=== PATIENT | male | born 1945 | race African-American/Black ===

== ENCOUNTER → 2017-09-17 | Outpatient (CLI) | payer MEDICARE, MEDICAID ==
[2016-07-23 16:42] VITALS: BMI 19.1
[~2017-09-17] MED LIST: ACET-1966 PO; ACET-2031 PO; AMIL5TAB12 PO; AML5 PO; AMLO-104 PO; ASP81 PO; ASPI81TA86 PO; AZI250 PO; BIFLEX PO; BISA10SU66 PR; CARB15DR72 OP; CLOB50FO2 TP; CLON1PAT23 TD; CLOP75TA43 PO; CYAN50002 PO; DIFL5DRO OP; DIFL5DRO3 OP; DOCU-202 PO; DONE10TA45 PO; DUT0.5 PO; FIO PO; FLUT16SP19 NS; FURO-45 PO; GLUC1TAB44 PO; HYD25 PO; HYDR-385 PO; HYDR-6045 RC; HYDR100T5 PO; HYDR25SU51 RC; HYDR50TA35 PO; IBU800 PO; IPRA4AER IH; KETO1DRO3 OP; KETO554C TP; LEVO5TAB28 PO; LIS10 PO; LIS5 PO; LISI-362 PO; LISI-374 PO; MEMA10TA19 PO; MET50 PO; METO-257 PO; METO100T20 PO; METO25TA23 PO; MIR15 PO; MIRT7.5T2 PO; MOD PO; MOM PO; MOXOD OD; NEPOD OP; NIF10 PO; NIFS30 PO; NIT4 SL; OMEG500C5 PO; OMEP-218 PO; POLY17PO21 PO; POLY1POW3 MC; POTA20TA10 PO; POTA20TA85 PO; PRIM50TA PO; PRIM50TA42 PO; PYRI100T57 PO; SENN1TAB13 PO; SIM40 PO; SIMV-44 PO; SODI325T7 PO; SODI650T7 PO; TOPI100C PO; TOPI25TA3 PO; TOPI50CA6 PO; TRA50 PO; TRAM-420 PO; TRAZ-156 PO; TRI05T TP; VALE445C4 PO; VITA-197 PO; VITA100T4 PO; WATER PILL; [UNRECOGNIZED DRUG - REMARK]; [UNRECOGNIZED DRUG - REMARK] PO
--- NOTE | 2017-09-19 19:59 | RT HOLTER TEST ---
FACILITY: [facility] PATIENT NAME: YARA MURPHY : [id number] MR: [id number] V: [id number] EXAM DATE: ORDERING PHYSICIAN: YOLANDA MCKEON TECHNOLOGIST: Isa-neville date: 2017-09-17 10:56:00 Duration: 47:59:00 Test Indications: Medications: [id number] QRS complexes 50 Ventricular ectopics which represent <1 % of total QRS comp. 326 Supraventricular ectopics which represent <1 % of total QRS comp. * Paced QRS complexes which represent % of total QRS comp. VENTRICULAR ECTOPY 48 Isolated 0 Bigeminal Cycles 1 Couplets 0 Runs 0 Beats in Runs * Beats LONGEST at * BPM at :: -- * Beats FASTEST at * BPM at :: -- SUPRAVENTRICULAR ECTOPY 322 Isolated 2 Couplets 0 Runs 0 Beats in Runs * Beats LONGEST at * BPM at :: -- * Beats FASTEST at * BPM at :: -- HEART RATES 39 MIN at 22:20:22 2017-09-18 55 AVG 97 MAX at 00:29:22 2017-09-18 LONGEST RR 1.752 secs at 03:24:02 2017-09-19 Channel 2 -12.800 mm MIN at 10:56:00 2017-09-17 -12.800 mm MAX at 10:56:00 2017-09-17 Channel 3 -12.800 mm MIN at 10:56:00 2017-09-17 -12.800 mm MAX at 10:56:00 2017-09-17 After the Lexiscan infusion, he did not have chest pain nor any ST changes. See the nuclear images for details. Confirmed by LEONEL ANGELES ([id number]) on 09/19/2017 7:57:50 PM Referred By: Overread By: LEONEL ANGELES
== END ==
LOC: RESP 10:33
PROVIDERS: ATTEND Family Medicine
DX: I35.9 Nonrheumatic aortic valve disorder, unspecified (principal)
CPT/HCPCS: 93225; 93226

== ENCOUNTER → 2017-10-23 | Outpatient (CLI) | payer MEDICARE, MEDICAID ==
[2016-07-23 16:42] VITALS: BMI 19.1
[2017-10-23 15:24] LABS: PLATELET COUNT, AUTOMATED 133 K/uL (150-450)
== END ==
LOC: LAB 14:24
PROVIDERS: ATTEND Internal Medicine Nephrology
DX: I12.9 Hypertensive chronic kidney disease with stage 1 through stage 4 chronic kidney disease, or unspecified chronic kidney disease (principal); N18.3 Chronic kidney disease, stage 3 (moderate); R80.9 Proteinuria, unspecified; I35.1 Nonrheumatic aortic (valve) insufficiency; F03.90 Unspecified dementia, unspecified severity, without behavioral disturbance, psychotic disturbance, mood disturbance, and anxiety; D72.810 Lymphocytopenia; R07.9 Chest pain, unspecified; G25.0 Essential tremor; R26.9 Unspecified abnormalities of gait and mobility; R53.83 Other fatigue
CPT/HCPCS: 36415; 82040; 82306; 82310; 82374; 82435; 82565; 82570; 82728; 82947; 83540; 83550; 83970; 84100; 84132; 84156; 84295; 84520; 85025

== ENCOUNTER 2017-11-05 07:38 | Emergency (ER) | payer MEDICARE, MEDICAID ==
[2016-07-23 16:42] VITALS: Ht 190.5 cm; Wt 70.3 kg
[~2017-11-05] VITALS: Ht 190.5 cm; Wt 70.3 kg
[~2017-11-05 07:38] MED LIST changes: +TOPI100C PO; -TOPI100C6 PO
--- NOTE | 2017-11-05 07:41 | ER Report ---
History and Physical Time Seen By MD: 07:39 HPI/ROS CHIEF COMPLAINT: tachycardia and chest pain HISTORY OF PRESENT ILLNESS: This is a 72 year old male. He has a history of SVT in the past with chest pain. Has similar symptoms this morning. Has felt this way since waking up. Heart racing and chest pain. Mild shortness of breath associated. Mild nausea as well. No fevers or chills. No cough. Allergies: Coded Allergies: atorvastatin calcium (Verified Allergy, Severe, HIVES, 11/05/17) Home Meds Active Scripts Tramadol Hcl (TRAMADOL HCL) 50 Mg Tablet, 1 TAB PO TID Y for PAIN, #15 MG TAKE ONE TO TWO TABLETS BY MOUTH EVERY FOUR TO SIX HOURS NEEDED Prov:LAZARO FIELD DO 07/13/17 Potassium Chloride (KLOR-CON M20) 20 Meq Tab.er.prt, 20 MEQ PO QDAY, #30 TAB 0 Refills Prov:ISRAEL SCHRADER MD 12/20/16 Polyethylene Glycol 3350 (POLYETHYLENE GLYCOL 3350) 17 Gm Powd.pack, 17 GM PO QDAY, #30 PACK 1 Refill Hold if diarrhea Prov:BALJIT DOWNING MD 07/26/16 Docusate Sodium (DOCUSATE SODIUM) 100 Mg Capsule, 100 MG PO BID, #60 CAPSULE 1 Refill Hold if diarrhea Prov:BALJIT DOWNING MD 07/26/16 Bisacodyl (BISAC-EVAC) 10 Mg Supp.rect, 10 MG SC QDAY Y for CONSTIPATION, #10 SUPP.RECT 1 Refill Prov:BALJIT DOWNING MD 07/26/16 Hydrocodone Bit/Acetaminophen (HYDROCODON-ACETAMINOPHEN 5-325) 1 Each Tablet, 1 EACH PO Q6H Y for PAIN, #30 TAB 0 Refills Prov:BALJIT DOWNING MD 07/26/16 Metoprolol Succinate (METOPROLOL SUCCINATE) 25 Mg Tab.er.24h, 1 TAB PO QDAY, # 30 TAB 1 Refill Prov:BALJIT DOWNING MD 07/26/16 Hydrocortisone (ANUSOL-HC) 30 Gm Cream..g., 2 GM RC TID for rectal pain, #60 2 Refills Prov:MAINE ARRIOLA DO 05/30/16 Hydrocortisone Acetate (ANUSOL-HC) 25 Mg Supp.rect, 25 MG RC BID for hemorriods , #15 SUPP.RECT Prov:MAINE ARRIOLA DO 05/09/16 Reported Medications Lisinopril (LISINOPRIL) 10 Mg Tablet, 10 MG PO QDAY, TAB 12/13/15 Acetaminophen (TYLENOL) 325 Mg Tablet, 650 MG PO Q6H Y for PAIN OR FEVER 100 OR GREATER, TAB 10/14/15 Vitamin E Mixed (VITAMIN E) 400 Unit Capsule, 400 UNIT PO QHS, CAPSULE 10/14/15 Sodium Bicarbonate (SODIUM BICARBONATE) 650 Mg Tablet, 650 MG PO DAILY 10/14/15 Pyridoxine Hcl (VITAMIN B-6) 100 Mg Tablet, 100 MG PO DAILY 10/14/15 Topiramate (TROKENDI XR) 50 Mg Cap.er.24h, 150 MG PO QHS 10/14/15 Hydralazine Hcl (HYDRALAZINE HCL) 100 Mg Tablet, 100 MG PO TID, TAB 10/14/15 Aspirin (ASPIRIN EC) 81 Mg Tablet.dr, 81 MG PO QHS, TAB 10/14/15 Gluc/Keith-Msm#1/C/Jose Ramon/Demetri/Bor (OSTEO BI-FLEX CAPLET) 1 Each Tablet, 2 EACH PO DAILY 02/15/15 Donepezil Hcl (DONEPEZIL HCL) 10 Mg Tab.rapdis, 10 MG PO HS, TAB TAKE 1 TABLET BY MOUTH AT BEDTIME 04/27/14 Fluticasone Prop 50 Mcg Ns (FLONASE 50 MCG NS) 16 Gm [place].susp, 1 SPRAY NS BID 04/27/14 Cyanocobalamin (Vitamin B-12) (VITAMIN B-12) 5,000 Mcg Tab.subl, 5000 MCG PO QHS 04/27/14 Memantine Hcl (Namenda) 10 Mg Tablet, 10 MG PO BID 12/08/12 Amlodipine Besylate (Norvasc) 10 Mg Tablet, 10 MG PO DAILY, 0 Refills 12/15/10 Dutasteride (Avodart) 0.5 Mg Cap, 0.5 MG PO BID, 0 Refills 12/15/10 Reviewed Nurses Notes: Yes Hx Smoking: No Smoking Status: Never Smoker Exposure to Second Hand Smoke?: No Hx Substance Use Disorder: No Hx Alcohol Use: No Constitutional Vital Sign - Last 24 Hours 11/05/17 11/05/17 11/05/17 11/05/17 07:40 07:43 07:45 07:48 Temp 97.9 Pulse 165 168 Resp 16 15 B/P (MAP) 84/65 73/63 (66) 84/65 (71) Pulse Ox 99 O2 Delivery Room Air 11/05/17 11/05/17 2/11/05/17 07:53 07:58 08:00 08:03 Pulse 165 81 72 Resp 30 34 B/P (MAP) 127/75 (92) 126/74 (91) Pulse Ox 97 95 18 218 2//18 11/05/17 08:08 08:13 08:15 08:18 Pulse 72 73 Resp 38 42 74 B/P (MAP) 117/65 (82) Pulse Ox 95 93 11/05/17 11/05/17 2//11/05/17 08:28 08:30 08:33 08:38 Pulse 71 72 69 Resp 78 30 23 B/P (MAP) 114/70 (85) Pulse Ox 93 96 99 11/05/17 11/05/17/11/05/17 08:43 08:45 08:48 08:53 Pulse 71 67 68 Resp 28 24 10 B/P (MAP) 109/78 (88) Pulse Ox 91 95 96 11/05/17 11/05/17 2//11/05/17 08:58 09:00 09:03 09:08 Pulse 67 76 75 Resp 31 45 22 B/P (MAP) 113/87 (96) Pulse Ox 96 11/05/17 11/05/1711/05/18 11/05/17 09:13 09:15 09:18 09:23 Pulse 75 70 74 Resp 26 36 37 B/P (MAP) 109/88 (95) Pulse Ox 98 Intake and Output 11/05/17 211/06/17 15:00 23:00 07:00 Intake Total 1000 ml Balance 1000 ml Physical Exam General Appearance: The patient is alert. No acute distress. Eyes: Pupils are equal, round. No pallor, injection or icterus. ENT: Mucous membranes are moist. Normal oral mucosa. Posterior oropharynx is normal. Neck: Supple and non tender. No lymphadenopathy. Respiratory: Lungs are clear to auscultation. Cardiovascular: Tachycardia of rate about 160s. Regular. No murmurs, gallops or rubs. Normal capillary refill. Gastrointestinal: Abdomen is soft and non tender. Nondistended. Normal active bowel sounds. Neurological: Alert and oriented x2, not to date/time. No focal neurologic deficits noted. Skin: Warm and dry. No rashes. DIFFERENTIAL DIAGNOSIS: After history and physical exam, differential diagnosis was considered for a patient with history of supraventricular tachycardia who is in SVT right now with some chest pain and shortness of breath. Medical Decision Making Data Points Result Diagram: 11/05/17 0748 11/05/17 0748 Laboratory Hematology Test 11/05/17 07:48 Red Blood Count 5.26 M/uL (4.00-5.60) Mean Corpuscular Volume 83.3 fL (80.0-96.0) Mean Corpuscular Hemoglobin 27.8 pg (26.0-33.0) Mean Corpuscular Hemoglobin Concent 33.4 g/dL (32.0-36.0) Red Cell Distribution Width 15.1 % (11.5-14.5) Mean Platelet Volume 8.6 fL (7.2-11.1) Neutrophils (%) (Auto) 61.7 % (39.4-72.5) Lymphocytes (%) (Auto) 26.7 % (17.6-49.6) Monocytes (%) (Auto) 7.2 % (4.1-12.4) Eosinophils (%) (Auto) 4.0 % (0.4-6.7) Basophils (%) (Auto) 0.4 % (0.3-1.4) Nucleated RBC Relative Count (auto) 0.1 /100WBC Neutrophils # (Auto) 2.7 K/uL (2.0-7.4) Lymphocytes # (Auto) 1.1 K/uL (1.3-3.6) Monocytes # (Auto) 0.3 K/uL (0.3-1.0) Eosinophils # (Auto) 0.2 K/uL (0.0-0.5) Basophils # (Auto) 0.0 K/uL (0.0-0.1) Nucleated RBC Absolute Count (auto) 0.00 K/uL Sodium Level 144 mmol/L (137-145) Potassium Level 3.1 mmol/L (3.5-5.0) Chloride Level 108 mmol/L (98-107) Carbon Dioxide Level 19 mmol/L (22-30) Blood Urea Nitrogen 33 mg/dl (9-21) Creatinine 2.00 mg/dl (0.66-1.25) Glomerular Filtration Rate Calc 32.8 Random Glucose 115 mg/dl (75-110) Calcium Level 10.1 mg/dl (8.4-10.2) Total Bilirubin 0.7 mg/dl (0.2-1.3) Aspartate Amino Transf (AST/SGOT) 70 U/L (0-35) Alanine Aminotransferase (ALT/SGPT) 103 U/L (0-56) Alkaline Phosphatase 94 U/L (0-126) Troponin I 0.059 ng/ml Total Protein 8.8 gm/dl (6.3-8.2) Albumin 4.3 g/dl (3.5-5.0) Chemistry Test 11/05/17 07:48 White Blood Count 4.3 k/uL (4.5-11.0) Red Blood Count 5.26 M/uL (4.00-5.60) Hemoglobin 14.6 g/dL (14.0-18.0) Hematocrit 43.8 % (42.0-52.0) Mean Corpuscular Volume 83.3 fL (80.0-96.0) Mean Corpuscular Hemoglobin 27.8 pg (26.0-33.0) Mean Corpuscular Hemoglobin Concent 33.4 g/dL (32.0-36.0) Red Cell Distribution Width 15.1 % (11.5-14.5) Platelet Count 168 K/uL (150-450) Mean Platelet Volume 8.6 fL (7.2-11.1) Neutrophils (%) (Auto) 61.7 % (39.4-72.5) Lymphocytes (%) (Auto) 26.7 % (17.6-49.6) Monocytes (%) (Auto) 7.2 % (4.1-12.4) Eosinophils (%) (Auto) 4.0 % (0.4-6.7) Basophils (%) (Auto) 0.4 % (0.3-1.4) Nucleated RBC Relative Count (auto) 0.1 /100WBC Neutrophils # (Auto) 2.7 K/uL (2.0-7.4) Lymphocytes # (Auto) 1.1 K/uL (1.3-3.6) Monocytes # (Auto) 0.3 K/uL (0.3-1.0) Eosinophils # (Auto) 0.2 K/uL (0.0-0.5) Basophils # (Auto) 0.0 K/uL (0.0-0.1) Nucleated RBC Absolute Count (auto) 0.00 K/uL Glomerular Filtration Rate Calc 32.8 Calcium Level 10.1 mg/dl (8.4-10.2) Total Bilirubin 0.7 mg/dl (0.2-1.3) Aspartate Amino Transf (AST/SGOT) 70 U/L (0-35) Alanine Aminotransferase (ALT/SGPT) 103 U/L (0-56) Alkaline Phosphatase 94 U/L (0-126) Troponin I 0.059 ng/ml Total Protein 8.8 gm/dl (6.3-8.2) Albumin 4.3 g/dl (3.5-5.0) EKG/Imaging EKG Interpretation 12 lead EKG: At 07:40 hours Rhythm: Supraventricular tachycardia, rate 166 Central: normal QRS: Left anterior fascicular block, left ventricular hypertrophy ST segments: T wave changes and ST changes in the lateral leads which is consistent with previous EKGs while he is in SVT. We'll reevaluate once converted. On comparison with prior SVT studies, no changes on his EKG 12 lead EKG: At 0800 hours Rhythm: Sinus rhythm with first-degree AV block and premature supraventricular complexes, rate 76 Central: normal QRS: Left ventricular hypertrophy ST segments: No ST elevation or depression noted. On comparison with prior studies after conversion from SVT, no major differences ED Course/Re-evaluation Clinical Indication for ER IV: Hydration, IV Access ED Course IV established, labs obtained. EKG as noted above. Adenosine 6mg IVP given, no conversion. Adenosine 12mg IVP given with conversion to sinus rhythm. Patient symptoms have subsided. The patient was monitored with heart monitor. He stayed in a sinus rhythm and has no further symptoms. Decision to Disposition Date: Nov 05, 2017 Decision to Disposition Time: 09:22 Depart Departure Latest Vital Signs Vital Signs Date Time Temp Pulse Resp B/P (MAP) Pulse Ox O2 Delivery O2 Flow Rate FiO2 11/05/17 09:23 74 37 98 11/05/17 09:15 109/88 (95) 11/05/17 07:40 97.9 Room Air Impression: Primary Impression: PSVT (paroxysmal supraventricular tachycardia) Condition: Improved Disposition: HOME OR SELF-CARE Referrals: YOLANDA MCKEON MD (PCP) Patient Instructions: Supraventricular Tachycardia (ED) Additional Instructions: No changes to medications at this time. Please make a follow-up appointment with your primary care provider. ISRAEL SCHRADER MD Nov 05, 2017 07:41
[2017-11-05] MEDS ORDERED: ADENOSINE IV SOLN 3 MG/ML SYR ONE (07:45)
[2017-11-05] MEDS ORDERED: ADENOSINE IV SOLN 3 MG/ML SYR IVP ONE ×2 (07:50)
[2017-11-05] MEDS ORDERED: NS(*) 0.9% 1000 ML BAG 1,000 ML IV ONE (07:50)
[2017-11-05 07:59] LABS: PLATELET COUNT, AUTOMATED 168 K/uL (150-450)
--- NOTE | 2017-11-05 07:59 | EKG ---
FACILITY: [facility] PATIENT NAME: YARA MURPHY : [id number] MR: [id number] V: [id number] EXAM DATE: ORDERING PHYSICIAN: ISRAEL SCHRADER TECHNOLOGIST: ORALIA Test Reason : SVT Blood Pressure : / mmHG Vent. Rate : 166 BPM Atrial Rate : 078 BPM P-R Int : 000 ms QRS Dur : 110 ms QT Int : 314 ms P-R-T Axes : 000 -56 122 degrees QTc Int : 521 ms Supraventricular tachycardia Left anterior fascicular block ST depression consistent with lateral ischemia When compared with ECG of 26-AUG-2017 08:44, ME interval has decreased Vent. rate has increased BY [address] now depressed in Anterolateral leads Nonspecific T wave abnormality no longer evident in Inferior leads Confirmed by LEONEL ANGELES ([id number]) on 11/05/2017 10:15:43 PM Referred By: MACRINA Confirmed By:LEONEL ANGELES
[2017-11-05] MEDS ORDERED: EMS NS 0.9%(*) 1000 ML BAG 1,000 ML IV ONE (08:05)
--- NOTE | 2017-11-05 08:11 | EKG ---
FACILITY: [facility] [place] PATIENT NAME: YARA MURPHY : [id number] MR: [id number] V: [id number] EXAM DATE: ORDERING PHYSICIAN: ISRAEL SCHRADER TECHNOLOGIST: ORALIA Test Reason : REPEAT EKG Blood Pressure : / mmHG Vent. Rate : 076 BPM Atrial Rate : 076 BPM P-R Int : 250 ms QRS Dur : 140 ms QT Int : 442 ms P-R-T Axes : 017 -57 101 degrees QTc Int : 497 ms Sinus rhythm with 1st degree AV block with premature supraventricular complexes and fusion complexes Left bundle branch block Abnormal ECG When compared with ECG of 05-NOV-2017 07:40, Vent. rate has decreased BY 90 BPM QRS duration has increased ST no longer depressed in Lateral leads Confirmed by LEONEL ANGELES ([id number]) on 11/05/2017 10:17:30 PM Referred By: MACRINA Confirmed By:LEONEL ANGELES
--- NOTE | 2017-11-05 08:53 | RADIOLOGY IMAGING REPORT ---
FACILITY: [facility] PATIENT NAME: Randy Gayle : 1945 MR: [id number] V: [id number] EXAM DATE: ORDERING PHYSICIAN: ISRAEL SCHRADER TECHNOLOGIST: Location: [facility] Patient: Randy Gayle : 1945 Visit/Account:[id number] Date of Sevice: 11/05/2017 Technique: CHEST SINGLE AP HISTORY: tachycardia, chest pain Comparison studies: Test radiograph August 26, 2017 FINDINGS: No lobar airspace consolidation. No pleural effusion. The cardiomediastinal silhouette is unchanged. IMPRESSION: 1. No acute cardiopulmonary process. Report Dictated By: Tacos Lewis DO at 11/05/2017 8:48 AM Report E-Signed By: Tacos Lewis DO at 11/05/2017 8:49 AM WSN:[id number]
[2017-11-05 09:15] VITALS: BP 109/88
== END 2017-11-05 09:30 | disposition home or self-care (01) ==
LOC: ER 07:42
DX: I47.1 Supraventricular tachycardia (principal); I44.7 Left bundle-branch block, unspecified; R94.31 Abnormal electrocardiogram [ECG] [EKG]
CPT/HCPCS: 71045; 84484; 85025; 93005; 96361; 96374; 99284; J0153; 82040; 82247; 82310; 82374; 82435; 82565; 82947; 84075; 84132; 84155; 84295; 84450; 84460; 84520

== ENCOUNTER → 2017-11-05 | Outpatient (CLI) | payer MEDICARE, MEDICAID ==
[2016-07-23 16:42] VITALS: BMI 19.1
[~2017-11-05] MED LIST changes: -TOPI100C PO; +TOPI100C6 PO
== END ==
LOC: AMB 07:18
PROVIDERS: ATTEND Nurse Practitioner
DX: R07.9 Chest pain, unspecified (principal); R41.0 Disorientation, unspecified; I47.1 Supraventricular tachycardia; I95.9 Hypotension, unspecified
CPT/HCPCS: A0425; A0427

== ENCOUNTER → 2017-11-05 | Outpatient (CLI) | payer MEDICARE, MEDICAID ==
[2016-07-23 16:42] VITALS: BMI 19.1
== END ==
LOC: AMB 09:33
PROVIDERS: ATTEND Nurse Practitioner
DX: Z76.89 Persons encountering health services in other specified circumstances (principal)
CPT/HCPCS: A0425; A0428

== ENCOUNTER → 2018-01-28 | Outpatient (REF) | payer MEDICARE, MEDICAID ==
[2016-07-23 16:42] VITALS: BMI 19.1
[~2018-01-28] MED LIST changes: -TOPI100C PO; +TOPI100C6 PO
== END ==
LOC: ZZSENDIN 14:23
PROVIDERS: ATTEND Family Medicine
DX: R30.0 Dysuria (principal)
CPT/HCPCS: 81001

== ENCOUNTER 2018-02-21 19:30 | Emergency (ER) | payer MEDICARE, MEDICAID ==
[2016-07-23 16:42] VITALS: Wt 66.7 kg
[2018-02-21] MEDS ORDERED: ADENOSINE(*)IV SOLN 3MG/ML ONE ×2 (19:45→19:47)
--- NOTE | 2018-02-21 19:59 | ER Report ---
History and Physical Time Seen By MD: 19:34 Hx. of Stated Complaint: PATIENT GOT OUT OF SHOWER WASN'T ACTING RIGHT ACCORDING TO HIS HOME HEALTH CARE NURSE CALLED AMBULANCE, EMS STATES HIS HEART RATE WAS 171, PATIENT HAS HX OF SVT. HPI/ROS CHIEF COMPLAINT: SVT HISTORY OF PRESENT ILLNESS: 72-year-old male patient presents to emergency room with complaint of supraventricular tachycardia. Patient states that he had gotten out of the shower and then started to feel funny. He had a home health nurse that was there with him. She did have him sit on the couch and called EMS. Patient did not have any loss consciousness, however he did was having some chest pain and dizziness. Patient did not have any nausea or vomiting. Patient does have a history of SVT and has been treated numerous times in the past. REVIEW OF SYSTEMS: Respiratory: No cough, no dyspnea. Cardiovascular: As noted above Gastrointestinal: No vomiting, no abdominal pain. Musculoskeletal: No back pain. Allergies: Coded Allergies: atorvastatin calcium (Verified Allergy, Severe, HIVES, 02/21/18) Home Meds Active Scripts Tramadol Hcl (TRAMADOL HCL) 50 Mg Tablet, 1 TAB PO TID Y for PAIN, #15 MG TAKE ONE TO TWO TABLETS BY MOUTH EVERY FOUR TO SIX HOURS NEEDED Prov:LAZARO FIELD DO 07/13/17 Potassium Chloride (KLOR-CON M20) 20 Meq Tab.er.prt, 20 MEQ PO QDAY, #30 TAB 0 Refills Prov:ISRAEL SCHRADER MD 12/20/16 Polyethylene Glycol 3350 (POLYETHYLENE GLYCOL 3350) 17 Gm Powd.pack, 17 GM PO QDAY, #30 PACK 1 Refill Hold if diarrhea Prov:BALJIT DOWNING MD 07/26/16 Docusate Sodium (DOCUSATE SODIUM) 100 Mg Capsule, 100 MG PO BID, #60 CAPSULE 1 Refill Hold if diarrhea Prov:BALJIT DOWNING MD 07/26/16 Hydrocodone Bit/Acetaminophen (HYDROCODON-ACETAMINOPHEN 5-325) 1 Each Tablet, 1 EACH PO Q6H Y for PAIN, #30 TAB 0 Refills Prov:BALJIT DOWNING MD 07/26/16 Metoprolol Succinate (METOPROLOL SUCCINATE) 25 Mg Tab.er.24h, 1 TAB PO QDAY, # 30 TAB 1 Refill Prov:BALJIT DOWNING MD 07/26/16 Hydrocortisone (ANUSOL-HC) 30 Gm Cream..g., 2 GM RC TID for rectal pain, #60 2 Refills Prov:MAINE ARRIOLA DO 05/30/16 Hydrocortisone Acetate (ANUSOL-HC) 25 Mg Supp.rect, 25 MG RC BID for hemorriods , #15 SUPP.RECT Prov:MAINE ARRIOLA DO 05/09/16 Reported Medications Lisinopril (LISINOPRIL) 10 Mg Tablet, 10 MG PO QDAY, TAB 12/13/15 Acetaminophen (TYLENOL) 325 Mg Tablet, 650 MG PO Q6H Y for PAIN OR FEVER 100 OR GREATER, TAB 10/14/15 Vitamin E Mixed (VITAMIN E) 400 Unit Capsule, 400 UNIT PO QHS, CAPSULE 10/14/15 Sodium Bicarbonate (SODIUM BICARBONATE) 650 Mg Tablet, 650 MG PO DAILY 10/14/15 Pyridoxine Hcl (VITAMIN B-6) 100 Mg Tablet, 100 MG PO DAILY 10/14/15 Topiramate (TROKENDI XR) 50 Mg Cap.er.24h, 150 MG PO QHS 10/14/15 Hydralazine Hcl (HYDRALAZINE HCL) 100 Mg Tablet, 100 MG PO TID, TAB 10/14/15 Aspirin (ASPIRIN EC) 81 Mg Tablet.dr, 81 MG PO QHS, TAB 10/14/15 Gluc/Keith-Msm#1/C/Jose Ramon/Demetri/Bor (OSTEO BI-FLEX CAPLET) 1 Each Tablet, 2 EACH PO DAILY 02/15/15 Donepezil Hcl (DONEPEZIL HCL) 10 Mg Tab.rapdis, 10 MG PO HS, TAB TAKE 1 TABLET BY MOUTH AT BEDTIME 04/27/14 Fluticasone Prop 50 Mcg Ns (FLONASE 50 MCG NS) 16 Gm [place].susp, 1 SPRAY NS BID 04/27/14 Cyanocobalamin (Vitamin B-12) (VITAMIN B-12) 5,000 Mcg Tab.subl, 5000 MCG PO QHS 04/27/14 Memantine Hcl (Namenda) 10 Mg Tablet, 10 MG PO BID 12/08/12 Amlodipine Besylate (Norvasc) 10 Mg Tablet, 10 MG PO DAILY, 0 Refills 12/15/10 Dutasteride (Avodart) 0.5 Mg Cap, 0.5 MG PO BID, 0 Refills 12/15/10 Discontinued Scripts Bisacodyl (BISAC-EVAC) 10 Mg Supp.rect, 10 MG [place] QDAY Y for CONSTIPATION, #10 SUPP.RECT 1 Refill Prov:BALJIT DOWNING MD 07/26/16 Past Medical/Surgical History Patient has a past medical history of dementia, TIA, elevated cholesterol, angina, SVT, hypertension, asthma, pneumonia, reflux, BPH, arthritis, back pain , cataract surgery. Patient has a surgical history of cataract surgery, shoulder surgery. Patient has a family medical history of cancer, CAD. Reviewed Nurses Notes: Yes Hx Smoking: No Smoking Status: Never Smoker Exposure to Second Hand Smoke?: No Hx Substance Use Disorder: No Hx Alcohol Use: No Constitutional Vital Sign - Last 24 Hours 02/21/18 02/21/18 19:33 19:33 Temp 97.6 Pulse 168 Resp 37 B/P (MAP) 99/87 Pulse Ox 99 O2 Flow Rate 3.0 Physical Exam General Appearance: The patient is alert, has no immediate need for airway protection and no current signs of toxicity. Respiratory: Chest is non tender, lungs are diminished to auscultation. Cardiac: Rapid rate. Gastrointestinal: Abdomen is soft and non tender, no masses, bowel sounds normal. Musculoskeletal: Neck: Neck is supple and non tender. Extremities have full range of motion and are non tender. Skin: No rashes or lesions. DIFFERENTIAL DIAGNOSIS: After history and physical exam differential diagnosis was considered for supraventricular tachycardia, atrial fibrillation with rapid ventricular response, [place]. Medical Decision Making Data Points Result Diagram: 02/21/18193302/21/181933 Laboratory Hematology Test 02/21/18 19:34 Red Blood Count 4.82 M/uL (4.00-5.60) Mean Corpuscular Volume 83.6 fL (80.0-96.0) Mean Corpuscular Hemoglobin 28.6 pg (26.0-33.0) Mean Corpuscular Hemoglobin Concent 34.3 g/dL (32.0-36.0) Red Cell Distribution Width 14.3 % (11.5-14.5) Mean Platelet Volume 8.6 fL (7.2-11.1) Neutrophils (%) (Auto) 61.7 % (39.4-72.5) Lymphocytes (%) (Auto) 24.3 % (17.6-49.6) Monocytes (%) (Auto) 8.2 % (4.1-12.4) Eosinophils (%) (Auto) 4.0 % (0.4-6.7) Basophils (%) (Auto) 1.8 % (0.3-1.4) Nucleated RBC Relative Count (auto) 0.1 /100WBC Neutrophils # (Auto) 2.9 K/uL (2.0-7.4) Lymphocytes # (Auto) 1.1 K/uL (1.3-3.6) Monocytes # (Auto) 0.4 K/uL (0.3-1.0) Eosinophils # (Auto) 0.2 K/uL (0.0-0.5) Basophils # (Auto) 0.1 K/uL (0.0-0.1) Nucleated RBC Absolute Count (auto) 0.00 K/uL Sodium Level 144 mmol/L (137-145) Potassium Level 3.2 mmol/L (3.5-5.0) Chloride Level 110 mmol/L (98-107) Carbon Dioxide Level 19 mmol/L (22-30) Blood Urea Nitrogen 35 mg/dl (9-21) Creatinine 2.20 mg/dl (0.66-1.25) Glomerular Filtration Rate Calc 29.4 Random Glucose 119 mg/dl (75-110) Calcium Level 9.9 mg/dl (8.4-10.2) Total Bilirubin 0.7 mg/dl (0.2-1.3) Aspartate Amino Transf (AST/SGOT) 50 U/L (0-35) Alanine Aminotransferase (ALT/SGPT) 61 U/L (0-56) Alkaline Phosphatase 98 U/L (0-126) Troponin I 0.033 ng/ml Total Protein 8.4 gm/dl (6.3-8.2) Albumin 4.2 g/dl (3.5-5.0) Chemistry Test 02/21/18 19:34 White Blood Count 4.6 k/uL (4.5-11.0) Red Blood Count 4.82 M/uL (4.00-5.60) Hemoglobin 13.8 g/dL (14.0-18.0) Hematocrit 40.3 % (42.0-52.0) Mean Corpuscular Volume 83.6 fL (80.0-96.0) Mean Corpuscular Hemoglobin 28.6 pg (26.0-33.0) Mean Corpuscular Hemoglobin Concent 34.3 g/dL (32.0-36.0) Red Cell Distribution Width 14.3 % (11.5-14.5) Platelet Count 158 K/uL (150-450) Mean Platelet Volume 8.6 fL (7.2-11.1) Neutrophils (%) (Auto) 61.7 % (39.4-72.5) Lymphocytes (%) (Auto) 24.3 % (17.6-49.6) Monocytes (%) (Auto) 8.2 % (4.1-12.4) Eosinophils (%) (Auto) 4.0 % (0.4-6.7) Basophils (%) (Auto) 1.8 % (0.3-1.4) Nucleated RBC Relative Count (auto) 0.1 /100WBC Neutrophils # (Auto) 2.9 K/uL (2.0-7.4) Lymphocytes # (Auto) 1.1 K/uL (1.3-3.6) Monocytes # (Auto) 0.4 K/uL (0.3-1.0) Eosinophils # (Auto) 0.2 K/uL (0.0-0.5) Basophils # (Auto) 0.1 K/uL (0.0-0.1) Nucleated RBC Absolute Count (auto) 0.00 K/uL Glomerular Filtration Rate Calc 29.4 Calcium Level 9.9 mg/dl (8.4-10.2) Total Bilirubin 0.7 mg/dl (0.2-1.3) Aspartate Amino Transf (AST/SGOT) 50 U/L (0-35) Alanine Aminotransferase (ALT/SGPT) 61 U/L (0-56) Alkaline Phosphatase 98 U/L (0-126) Troponin I 0.033 ng/ml Total Protein 8.4 gm/dl (6.3-8.2) Albumin 4.2 g/dl (3.5-5.0) EKG/Imaging EKG Interpretation 12 lead EKG: Rhythm: SVT with a ventricular rate of one 64 bpm [place]: normal QRS: normal ST segments: normal 12 lead EKG done at 1952: Rhythm: Sinus rhythm with first-degree AV block, ventricular rate of 77 bpm [place]: normal QRS: Left ventricular hypertrophy with QRS widening ST segments: normal Imaging CHEST SINGLE AP INDICATION: SVT COMPARISON: 11/05/2017 FINDINGS: Cardiac silhouette is mildly enlarged. There is no focal infiltrate or lobar consolidation. There is no pneumothorax or pleural effusion. IMPRESSION: 1. No acute cardiopulmonary process. Report Dictated By: Brian Kumar at 02/21/2018 8:27 PM Report E-Signed By: Brian Kumar at 02/21/2018 8:28 PM ED Course/Re-evaluation ED Course Patient was admitted to an exam room history and physical were obtained. Difficult diagnoses were considered. On examination patient has elevated heart rate, measuring at 164 bpm. Most persistent. Vasovagal maneuvers were attempted. They were unsuccessful at converting. An IV was started, lab work was obtained, CBC, CMP, troponin, EKG. EKG shows a wide QRS tachycardia. In reviewing previous EKGs patient has a wide complex tachycardia with SVT. Patient was treated initially with 6 mg of adenosine. There is no improvement. Patient was then treated with 12 mg of adenosine. He did have conversion to a sinus rhythm. A repeat EKG was done which showed a sinus rhythm with a first- degree AV block. A chest x-ray was performed, labs were unremarkable. Patient had elevated creatinine and BUN which is consistent for him. On reevaluation patient states she's feeling much better. We will go ahead and discharge patient home at this time. Patient verbalized understanding and agreement with plan. Decision to Disposition Date: Feb 21, 2018 Decision to Disposition Time: 20:54 Depart Departure Latest Vital Signs Vital Signs Date Time Temp Pulse Resp B/P (MAP) Pulse Ox O2 Delivery O2 Flow Rate FiO2 02/21/18 19:33 97.6 168 37 99/87 99 02/21/18 19:33 3.0 Impression: Primary Impression: PSVT (paroxysmal supraventricular tachycardia) Condition: Improved Disposition: HOME OR SELF-CARE Referrals: YOLANDA MCKEON MD (PCP) Patient Instructions: Supraventricular Tachycardia (ED) Additional Instructions: Increase fluid intake. Get plenty of rest. Follow up with your primary care provider in the next week. Return to the ER if condition worsens. Continue with your current medications. TUSHAR HAYWOOD Feb 21, 2018 19:58
[2018-02-21 20:21] LABS: PLATELET COUNT, AUTOMATED 158 K/uL (150-450)
--- NOTE | 2018-02-21 20:31 | RADIOLOGY IMAGING REPORT ---
[place] [facility] [place] NAME: Randy Gayle : 1945 MR: [id number] V: [id number] EXAM DATE: ORDERING PHYSICIAN: TUSHAR HAYWOOD TECHNOLOGIST: Location: [facility] Patient: Randy Gayle : 1945 Visit/Account:[id number] Date of Sevice: 02/21/2018 CHEST SINGLE AP INDICATION: SVT COMPARISON: 11/05/2017 FINDINGS: Cardiac silhouette is mildly enlarged. There is no focal infiltrate or lobar consolidation. There is no pneumothorax or pleural effusion. IMPRESSION: 1. No acute cardiopulmonary process. Report Dictated By: Brian Kumar at 02/21/2018 8:27 PM Report E-Signed By: Brian Kumar at 02/21/2018 8:28 PM WSN:[id number]
--- NOTE | 2018-02-21 20:52 | EKG ---
FACILITY: [facility] PATIENT NAME: YARA MURPHY : [id number] MR: [id number] V: [id number] EXAM DATE: ORDERING PHYSICIAN: TUSHAR HAYWOOD TECHNOLOGIST: ARLYN Test Reason : CHEST PAIN Blood Pressure : / mmHG Vent. Rate : 077 BPM Atrial Rate : 077 BPM P-R Int : 254 ms QRS Dur : 136 ms QT Int : 418 ms P-R-T Axes : 032 -61 102 degrees QTc Int : 473 ms Sinus rhythm with 1st degree AV block Left ventricular hypertrophy with QRS widening and repolarization abnormality Abnormal ECG When compared with ECG of 21-FEB-2018 19:35, Sinus rhythm has replaced Wide QRS tachycardia Vent. rate has decreased BY 87 BPM Confirmed by YOLANDA RAMIREZ ([id number]) on 02/22/2018 6:26:54 AM Referred By: Confirmed By:YOLANDA RAMIREZ
--- NOTE | 2018-02-21 20:52 | EKG ---
FACILITY: [facility] - [place] PATIENT NAME: YARA MURPHY : [id number] MR: [id number] V: [id number] EXAM DATE: ORDERING PHYSICIAN: TUSHAR HAYWOOD TECHNOLOGIST: ARLYN Test Reason : CHEST PAIN Blood Pressure : / mmHG Vent. Rate : 164 BPM Atrial Rate : 178 BPM P-R Int : 000 ms QRS Dur : 126 ms QT Int : 316 ms P-R-T Axes : 000 -59 114 degrees QTc Int : 521 ms Wide QRS tachycardia Left ventricular hypertrophy with QRS widening and repolarization abnormality Abnormal ECG When compared with ECG of 05-NOV-2017 08:00, Wide QRS tachycardia has replaced Sinus rhythm Vent. rate has increased BY 88 BPM Confirmed by YOLANDA RAMIREZ ([id number]) on 02/22/2018 6:26:34 AM Referred By: Confirmed By:YOLANDA RAMIREZ
[2018-02-21 21:07] VITALS: BP 104/70
== END 2018-02-21 21:12 | disposition home or self-care (01) ==
LOC: ER 19:40
DX: I47.1 Supraventricular tachycardia (principal); R94.31 Abnormal electrocardiogram [ECG] [EKG]; I44.0 Atrioventricular block, first degree
CPT/HCPCS: 71045; 84484; 85025; 93005; 96374; 99284; J0153; 82040; 82247; 82310; 82374; 82435; 82565; 82947; 84075; 84132; 84155; 84295; 84450; 84460; 84520

== ENCOUNTER → 2018-02-21 | Outpatient (CLI) | payer MEDICARE, MEDICAID ==
[2016-07-23 16:42] VITALS: BMI 19.1
== END ==
LOC: AMB 19:20
PROVIDERS: ATTEND Nurse Practitioner
DX: R07.89 Other chest pain (principal); I47.1 Supraventricular tachycardia
CPT/HCPCS: A0425; A0427

== ENCOUNTER 2018-03-29 02:20 | Emergency (ER) | payer MEDICARE, MEDICAID ==
[2016-07-23 16:42] VITALS: Wt 66.7 kg
--- NOTE | 2018-03-29 02:28 | ER Report ---
History and Physical Time Seen By MD: 02:27 Hx. of Stated Complaint: PT HAS CHEST PAIN AND POSSIBLE SVT. HPI/ROS CHIEF COMPLAINT: Chest pain, SVT HISTORY OF PRESENT ILLNESS: 72-year-old black male with dementia, frequent visitor our ER with SVT and chest pain. Patient's noted to have a rate of 150 by EMSs EKG. Patient notes substernal chest pain without radiation. Patient was seen here on 02/21/18 with similar presentation. Patient was treated with adenosine 6 and adenosine 12 mg with conversion. On previous visit. Patient's also been treated with diltiazem with good results. Patient's initial EKG shows a wide complex tachycardia consistent with LVH and left bundle branch block and a rate of 154. Patient appears at baseline with his dementia. He is alert and appropriately responsive. He recognizes me and waves. REVIEW OF SYSTEMS: Respiratory: No cough, no dyspnea. Cardiovascular: As above Gastrointestinal: No vomiting, no abdominal pain. Musculoskeletal: No back pain. Allergies: Coded Allergies: atorvastatin calcium (Verified Allergy, Severe, HIVES, 02/21/18) Home Meds Active Scripts Tramadol Hcl (TRAMADOL HCL) 50 Mg Tablet, 1 TAB PO TID Y for PAIN, #15 MG TAKE ONE TO TWO TABLETS BY MOUTH EVERY FOUR TO SIX HOURS NEEDED Prov:LAZARO FIELD DO 07/13/17 Potassium Chloride (KLOR-CON M20) 20 Meq Tab.er.prt, 20 MEQ PO QDAY, #30 TAB 0 Refills Prov:ISRAEL SCHRADER MD 12/20/16 Polyethylene Glycol 3350 (POLYETHYLENE GLYCOL 3350) 17 Gm Powd.pack, 17 GM PO QDAY, #30 PACK 1 Refill Hold if diarrhea Prov:BALJIT DOWNING MD 07/26/16 Docusate Sodium (DOCUSATE SODIUM) 100 Mg Capsule, 100 MG PO BID, #60 CAPSULE 1 Refill Hold if diarrhea Prov:BALJIT DOWNING MD 07/26/16 Hydrocodone Bit/Acetaminophen (HYDROCODON-ACETAMINOPHEN 5-325) 1 Each Tablet, 1 EACH PO Q6H Y for PAIN, #30 TAB 0 Refills Prov:BALJIT DOWNING MD 07/26/16 Metoprolol Succinate (METOPROLOL SUCCINATE) 25 Mg Tab.er.24h, 1 TAB PO QDAY, # 30 TAB 1 Refill Prov:BALJIT DOWNING MD 07/26/16 Hydrocortisone (ANUSOL-HC) 30 Gm Cream..g., 2 GM RC TID for rectal pain, #60 2 Refills Prov:MAINE ARRIOLA DO 05/30/16 Hydrocortisone Acetate (ANUSOL-HC) 25 Mg Supp.rect, 25 MG RC BID for hemorriods , #15 SUPP.RECT Prov:MAINE ARRIOLA DO 05/09/16 Reported Medications Lisinopril (LISINOPRIL) 10 Mg Tablet, 10 MG PO QDAY, TAB 12/13/15 Acetaminophen (TYLENOL) 325 Mg Tablet, 650 MG PO Q6H Y for PAIN OR FEVER 100 OR GREATER, TAB 10/14/15 Vitamin E Mixed (VITAMIN E) 400 Unit Capsule, 400 UNIT PO QHS, CAPSULE 10/14/15 Sodium Bicarbonate (SODIUM BICARBONATE) 650 Mg Tablet, 650 MG PO DAILY 10/14/15 Pyridoxine Hcl (VITAMIN B-6) 100 Mg Tablet, 100 MG PO DAILY 10/14/15 Topiramate (TROKENDI XR) 50 Mg Cap.er.24h, 150 MG PO QHS 10/14/15 Hydralazine Hcl (HYDRALAZINE HCL) 100 Mg Tablet, 100 MG PO TID, TAB 10/14/15 Aspirin (ASPIRIN EC) 81 Mg Tablet.dr, 81 MG PO QHS, TAB 10/14/15 Gluc/Keith-Msm#1/C/Jose Ramon/Demetri/Bor (OSTEO BI-FLEX CAPLET) 1 Each Tablet, 2 EACH PO DAILY 02/15/15 Donepezil Hcl (DONEPEZIL HCL) 10 Mg Tab.rapdis, 10 MG PO HS, TAB TAKE 1 TABLET BY MOUTH AT BEDTIME 04/27/14 Fluticasone Prop 50 Mcg Ns (FLONASE 50 MCG NS) 16 Gm [place].susp, 1 SPRAY NS BID 04/27/14 Cyanocobalamin (Vitamin B-12) (VITAMIN B-12) 5,000 Mcg Tab.subl, 5000 MCG PO QHS 04/27/14 Memantine Hcl (Namenda) 10 Mg Tablet, 10 MG PO BID 12/08/12 Amlodipine Besylate (Norvasc) 10 Mg Tablet, 10 MG PO DAILY, 0 Refills 12/15/10 Dutasteride (Avodart) 0.5 Mg Cap, 0.5 MG PO BID, 0 Refills 12/15/10 Past Medical/Surgical History Patient has a past medical history of dementia, TIA, elevated cholesterol, angina, SVT, hypertension, asthma, pneumonia, reflux, BPH, arthritis, back pain , cataract surgery. Patient has a surgical history of cataract surgery, shoulder surgery. Patient has a family medical history of cancer, CAD. Reviewed Nurses Notes: Yes Old Medical Records Reviewed: Yes Hx Smoking: No Smoking Status: Never Smoker Exposure to Second Hand Smoke?: No Hx Substance Use Disorder: No Hx Alcohol Use: No Constitutional Vital Sign - Last 24 Hours 03/29/18 03/29/18 03/29/18 03/29/18 02:22 02:22 02:23 02:30 Temp 98.1 Pulse 144 Resp 22 B/P (MAP) 93/73 93/73 (80) 96/67 (77) 90/69 (76) Pulse Ox 94 O2 Delivery Room Air 03/29/18 03/29/18 03/29/18 03/29/18 02:35 02:46 02:50 03:00 Pulse 144 Resp 23 15 B/P (MAP) 95/61 (72) 91/63 (72) 107/62 (77) Pulse Ox 94 91 03/29/18 03/29/18 03/29/18 03/29/18 03:05 03:20 03:30 03:35 Pulse 56 52 Resp 24 18 B/P (MAP) 103/55 (71) 108/63 (78) Pulse Ox 94 94 03/29/18 03/29/18 03/29/18 03/29/18 03:50 04:00 04:05 04:20 Pulse 49 46 Resp 12 0 17 B/P (MAP) 104/63 (77) Pulse Ox 96 94 96 03/29/18 04:30 B/P (MAP) 111/66 (81) Physical Exam Vital signs stable, borderline low blood pressure, patient on previous visits, has low blood pressure noted, tachycardic to the 140s, monitor shows wide complex tachycardia General Appearance: The patient is alert, has no immediate need for airway protection and no current signs of toxicity. Skin warm, dry, pink HEENT: Pupils equal and round no injection. Oropharynx without redness or exudate, mucous. Membranes are moist Respiratory: Chest is non tender, lungs are clear to auscultation. No chest wall tenderness Cardiac: regular rate and rhythm, tachycardic rhythm. Distant heart sounds Gastrointestinal: Abdomen is soft and non tender, no masses, bowel sounds normal. Musculoskeletal: Neck: Neck is supple and non tender. Extremities have full range of motion and are non tender. Skin: No rashes or lesions. DIFFERENTIAL DIAGNOSIS: After history and physical exam differential diagnosis was considered for chest pain including but not limited to myocardial ischemia, pericarditis pulmonary embolus, chest wall pain, pleural inflammation and pulmonary infectious causes. Medical Decision Making Data Points Result Diagram: 03/29/188 03/29/188 Laboratory Hematology Test 03/29/18 02:28 Red Blood Count 4.63 M/uL (4.00-5.60) Mean Corpuscular Volume 83.1 fL (80.0-96.0) Mean Corpuscular Hemoglobin 28.2 pg (26.0-33.0) Mean Corpuscular Hemoglobin Concent 34.0 g/dL (32.0-36.0) Red Cell Distribution Width 14.0 % (11.5-14.5) Mean Platelet Volume 8.5 fL (7.2-11.1) Neutrophils (%) (Auto) 70.1 % (39.4-72.5) Lymphocytes (%) (Auto) 14.4 % (17.6-49.6) Monocytes (%) (Auto) 6.1 % (4.1-12.4) Eosinophils (%) (Auto) 3.5 % (0.4-6.7) Basophils (%) (Auto) 5.9 % (0.3-1.4) Nucleated RBC Relative Count (auto) 0.1 /100WBC Neutrophils # (Auto) 3.3 K/uL (2.0-7.4) Lymphocytes # (Auto) 0.7 K/uL (1.3-3.6) Monocytes # (Auto) 0.3 K/uL (0.3-1.0) Eosinophils # (Auto) 0.2 K/uL (0.0-0.5) Basophils # (Auto) 0.3 K/uL (0.0-0.1) Nucleated RBC Absolute Count (auto) 0.00 K/uL Peripheral Blood Smear Yes Y/N D-Dimer Quantitative (PE/DVT) 1.13 ug/ml (0-0.50) Sodium Level 142 mmol/L (137-145) Potassium Level 2.8 mmol/L (3.5-5.0) Chloride Level 111 mmol/L (98-107) Carbon Dioxide Level 16 mmol/L (22-30) Blood Urea Nitrogen 33 mg/dl (9-21) Creatinine 2.30 mg/dl (0.66-1.25) Glomerular Filtration Rate Calc 27.9 Random Glucose 122 mg/dl (75-110) Calcium Level 9.5 mg/dl (8.4-10.2) Total Bilirubin 0.4 mg/dl (0.2-1.3) Aspartate Amino Transf (AST/SGOT) 117 U/L (0-35) Alanine Aminotransferase (ALT/SGPT) 137 U/L (0-56) Alkaline Phosphatase 93 U/L (0-126) Troponin I 0.046 ng/ml B-Type Natriuretic Peptide 160 pg/ml (0-100) Total Protein 7.9 g/dl (6.3-8.2) Albumin 3.9 g/dl (3.5-5.0) Chemistry Test 03/29/18 02:28 White Blood Count 4.7 k/uL (4.5-11.0) Red Blood Count 4.63 M/uL (4.00-5.60) Hemoglobin 13.1 g/dL (14.0-18.0) Hematocrit 38.5 % (42.0-52.0) Mean Corpuscular Volume 83.1 fL (80.0-96.0) Mean Corpuscular Hemoglobin 28.2 pg (26.0-33.0) Mean Corpuscular Hemoglobin Concent 34.0 g/dL (32.0-36.0) Red Cell Distribution Width 14.0 % (11.5-14.5) Platelet Count 151 K/uL (150-450) Mean Platelet Volume 8.5 fL (7.2-11.1) Neutrophils (%) (Auto) 70.1 % (39.4-72.5) Lymphocytes (%) (Auto) 14.4 % (17.6-49.6) Monocytes (%) (Auto) 6.1 % (4.1-12.4) Eosinophils (%) (Auto) 3.5 % (0.4-6.7) Basophils (%) (Auto) 5.9 % (0.3-1.4) Nucleated RBC Relative Count (auto) 0.1 /100WBC Neutrophils # (Auto) 3.3 K/uL (2.0-7.4) Lymphocytes # (Auto) 0.7 K/uL (1.3-3.6) Monocytes # (Auto) 0.3 K/uL (0.3-1.0) Eosinophils # (Auto) 0.2 K/uL (0.0-0.5) Basophils # (Auto) 0.3 K/uL (0.0-0.1) Nucleated RBC Absolute Count (auto) 0.00 K/uL Peripheral Blood Smear Yes Y/N D-Dimer Quantitative (PE/DVT) 1.13 ug/ml (0-0.50) Glomerular Filtration Rate Calc 27.9 Calcium Level 9.5 mg/dl (8.4-10.2) Total Bilirubin 0.4 mg/dl (0.2-1.3) Aspartate Amino Transf (AST/SGOT) 117 U/L (0-35) Alanine Aminotransferase (ALT/SGPT) 137 U/L (0-56) Alkaline Phosphatase 93 U/L (0-126) Troponin I 0.046 ng/ml B-Type Natriuretic Peptide 160 pg/ml (0-100) Total Protein 7.9 g/dl (6.3-8.2) Albumin 3.9 g/dl (3.5-5.0) Coagulation Test 03/29/18 02:28 D-Dimer Quantitative (PE/DVT) 1.13 ug/ml EKG/Imaging EKG Interpretation 12 lead EK Rhythm: Wide QRS tachycardia, rate 147 bpm Daphne: LVH with ventricular hypertrophy and repolarization abnormality QRS: normal ST segments: normal, comparison to previous EKG dated 08/26/17. Patient has had this rhythm before. 12 lead EK Rhythm: Sinus bradycardia, rate 50 bpm, first-degree AV block with premature ventricular complexes Daphne: Left bundle branch block pattern, LVH with repolarization abnormality QRS: normal ST segments: normal Imaging X-ray: Two-view chest x-ray was obtained. I viewed the images myself on the PACS system. My interpretation of the images is: No infiltrate, no effusion, normal mediastinum, no change compared to previous chest x-ray 02/21/18. The radiologist interpretation had no clinically significant variation from this interpretation. ED Course/Re-evaluation Clinical Indication for ER IV: IV Access ED Course She was minute to an examination room. H&P was done. The differential diagnosis was considered. On clinical examination. Patient noted to be in SVT wide-complex tachycardia. Patient's old EKG show similar to previous EKGs. Patient's given diltiazem 5 mg IV. He is observed for 5 minutes and converted to a sinus rhythm with a bradycardic rhythm in the 50s. A repeat EKG is performed. Patient's troponin is mildly elevated as well as his BMP. His d- dimer is elevated suggesting a potential pulmonary embolism. Patient's renal function will not tolerate CT angiogram. My clinical suspicion for pulmonary embolism is low. I do not think of ventilation/perfusion scan is necessary. Patient with obvious dementia. Reports feeling much better after conversion to sinus rhythm. Review of his previous laboratory shows mild elevations of troponin with his SVT. Patient is noted to be bradycardic. Patient's potassium was noted to be 2.8. Patient was given 80 mEq of potassium chloride. Previous EKG show that as well. Cardiology was consult at back in August 2017 regarding his bradycardia after conversion. The patient was discharged home and advised to follow-up. Decision to Disposition Date: Mar 29, 2018 Decision to Disposition Time: 03:42 Depart Departure Latest Vital Signs Vital Signs Date Time Temp Pulse Resp B/P (MAP) Pulse Ox O2 Delivery O2 Flow Rate FiO2 03/29/18 04:30 111/66 (81) 03/29/18 04:20 46 17 96 03/29/18 02:22 98.1 Room Air Impression: Primary Impression: PSVT (paroxysmal supraventricular tachycardia) Additional Impressions: Pulmonary hypertension Chest pain Dementia Hypokalemia Condition: Improved Disposition: HOME OR SELF-CARE Referrals: YOLANDA MCKEON MD (PCP) Patient Instructions: Chest Pain (ED), Supraventricular Tachycardia (ED) Additional Instructions: Follow-up with your primary care physician within one week Problem Qualifiers Additional Impressions: Chest pain Chest pain type: unspecified Qualified Codes: R07.9 - Chest pain, unspecified Dementia Dementia type: unspecified type Dementia behavioral disturbance: without behavioral disturbance Qualified Codes: F03.90 - Unspecified dementia without behavioral disturbance LAZARO FIELD DO Mar 29, 2018 02:28
[2018-03-29] MEDS: DILTIAZEM 5 MG/ML 5ML IVPUSH IVP ONE (02:43)
[2018-03-29 02:45] LABS: PLATELET COUNT, AUTOMATED 151 K/uL (150-450)
[2018-03-29] MEDS ORDERED: NS(*) 0.9% 500 ML BAG 500 ML IV ONE (02:55)
[2018-03-29] MEDS ORDERED: POTASSIUM CHL 20 MEQ TABCR PO ONE ×2 (02:55→04:20)
--- NOTE | 2018-03-29 03:39 | EKG ---
FACILITY: [facility] PATIENT NAME: YARA MURPHY : [id number] MR: [id number] V: [id number] EXAM DATE: ORDERING PHYSICIAN: LAZARO FIELD TECHNOLOGIST: ARLYN Test Reason : CHEST PAIN Blood Pressure : / mmHG Vent. Rate : 147 BPM Atrial Rate : 032 BPM P-R Int : 000 ms QRS Dur : 130 ms QT Int : 342 ms P-R-T Axes : 000 -55 119 degrees QTc Int : 535 ms Wide QRS tachycardia Abnormal ECG Confirmed by BALJIT DOWNING ([id number]) on 03/29/2018 5:52:39 AM Referred By: Confirmed By:BALJIT DOWNING
--- NOTE | 2018-03-29 03:43 | EKG ---
FACILITY: [facility] - [place] PATIENT NAME: YARA MURPHY : [id number] MR: [id number] V: [id number] EXAM DATE: ORDERING PHYSICIAN: LAZARO FIELD TECHNOLOGIST: ARLYN Test Reason : CHEST PAIN Blood Pressure : / mmHG Vent. Rate : 050 BPM Atrial Rate : 050 BPM P-R Int : 216 ms QRS Dur : 148 ms QT Int : 510 ms P-R-T Axes : 016 -54 104 degrees QTc Int : 464 ms Sinus bradycardia with 1st degree AV block Left axis Incomplete left bundle branch block Abnormal ECG Confirmed by BALJIT DOWNING ([id number]) on 03/29/2018 5:53:46 AM Referred By: Confirmed By:BALJIT DOWNING
--- NOTE | 2018-03-29 03:49 | RADIOLOGY IMAGING REPORT ---
[facility] PATIENT NAME: Randy Gayle : 1945 MR: [id number] V: [id number] EXAM DATE: ORDERING PHYSICIAN: LAZARO FIELD TECHNOLOGIST: Location: [facility] - [place] Patient: Randy Gayle : 1945 Visit/Account:[id number] Date of Sevice: 03/29/2018 TWO VIEW CHEST 03/29/2018 2:36 AM. INDICATION: Chest Pain COMPARISON: 02/21/2018. FINDINGS: Lungs are well-expanded. The lungs are clear. Question small posterior pleural effusions. Pulmonary vasculature is unremarkable. Cardiac silhouette is mildly enlarged. IMPRESSION: Mild enlargement of the cardiac silhouette with questionable small pleural effusions. Report Dictated By: Edwar Hernandez MD at 03/29/2018 3:42 AM Report E-Signed By: Edwar Hernandez MD at 03/29/2018 3:45 AM WSN:[id number]
[2018-03-29 04:30] VITALS: BP 111/66
== END 2018-03-29 05:06 | disposition home or self-care (01) ==
LOC: ER 02:32
DX: I47.1 Supraventricular tachycardia (principal); I27.20 Pulmonary hypertension, unspecified; E87.6 Hypokalemia; F03.90 Unspecified dementia, unspecified severity, without behavioral disturbance, psychotic disturbance, mood disturbance, and anxiety; R07.9 Chest pain, unspecified
CPT/HCPCS: 83880; 84484; 85025; 85379; 93005; 96361; 96374; 96375; 99284; A9270; J3490; J7040; 82040; 82247; 82310; 82374; 82435; 82565; 82947; 84075; 84132; 84155; 84295; 84450; 84460; 84520

== ENCOUNTER → 2018-03-29 | Outpatient (CLI) | payer MEDICARE, MEDICAID ==
[2016-07-23 16:42] VITALS: BMI 19.1
[~2018-03-29] MED LIST changes: -TRAZ-156 PO; +TRAZ50TA34 PO
== END ==
LOC: AMB 02:04
PROVIDERS: ATTEND Nurse Practitioner
DX: R07.9 Chest pain, unspecified (principal); R53.83 Other fatigue; R53.1 Weakness
CPT/HCPCS: A0425; A0427

== ENCOUNTER → 2018-03-29 | Outpatient (CLI) | payer MEDICARE, MEDICAID ==
[2016-07-23 16:42] VITALS: BMI 19.1
== END ==
LOC: AMB 04:52
PROVIDERS: ATTEND Nurse Practitioner
DX: F03.90 Unspecified dementia, unspecified severity, without behavioral disturbance, psychotic disturbance, mood disturbance, and anxiety (principal); R53.1 Weakness
CPT/HCPCS: A0425; A0428

== ENCOUNTER 2018-04-15 17:47 | Emergency (ER) | payer MEDICARE, MEDICAID ==
[2016-07-23 16:42] VITALS: BMI 19.1
--- NOTE | 2018-04-15 18:11 | ER Report ---
History and Physical Time Seen By MD: 17:55 Hx. of Stated Complaint: PT ARRIVED VIA EMS. PER REPORT HOME HEALTH CALLED STATING THE PATIENT WAS MORE LETHARGIC THAN NORMAL. PT REFUSED IV WITH EMS. PT STATES HE STARTED HAVING CHEST PAIN EARLY EARLY THIS MORNING, AND THAT HES GETTING MORE TIRED. PT HAS HX OF SVT. HR WAS 140 WITH EMS HPI/ROS CHIEF COMPLAINT: chest pain, racing heart HISTORY OF PRESENT ILLNESS: This is a 72 year old male. He came to the ER today , after home health called because of fatigue more than usual. He has had chest pain since early this morning. He has a history of paroxysmal SVT and heart is racing. Has been in the ER many times in the past for this. Generally able to convert him with Adenosine or electric and he is stable. He has mild dementia as well that has been worsening over the last few years. He denies any cough or shortness of breath. Feels pain sub-sternal chest. Denies any problems with bowel or bladder recently. Denies headache, sore throat or runny nose. He does feel weak and tired. REVIEW OF SYSTEMS: As above. Allergies: Coded Allergies: atorvastatin calcium (Verified Allergy, Severe, HIVES, 02/21/18) Home Meds Active Scripts Tramadol Hcl (TRAMADOL HCL) 50 Mg Tablet, 1 TAB PO TID Y for PAIN, #15 MG TAKE ONE TO TWO TABLETS BY MOUTH EVERY FOUR TO SIX HOURS NEEDED Prov:LAZARO FIELD DO 07/13/17 Potassium Chloride (KLOR-CON M20) 20 Meq Tab.er.prt, 20 MEQ PO QDAY, #30 TAB 0 Refills Prov:ISRAEL SCHRADER MD 12/20/16 Polyethylene Glycol 3350 (POLYETHYLENE GLYCOL 3350) 17 Gm Powd.pack, 17 GM PO QDAY, #30 PACK 1 Refill Hold if diarrhea Prov:BALJIT DOWNING MD 07/26/16 Docusate Sodium (DOCUSATE SODIUM) 100 Mg Capsule, 100 MG PO BID, #60 CAPSULE 1 Refill Hold if diarrhea Prov:BALJIT DOWNING MD 07/26/16 Hydrocodone Bit/Acetaminophen (HYDROCODON-ACETAMINOPHEN 5-325) 1 Each Tablet, 1 EACH PO Q6H Y for PAIN, #30 TAB 0 Refills Prov:BALJIT DOWNING MD 07/26/16 Metoprolol Succinate (METOPROLOL SUCCINATE) 25 Mg Tab.er.24h, 1 TAB PO QDAY, # 30 TAB 1 Refill Prov:BALJIT DOWNING MD 07/26/16 Hydrocortisone (ANUSOL-HC) 30 Gm Cream..g., 2 GM RC TID for rectal pain, #60 2 Refills Prov:MAINE ARRIOLA 05/30/16 Hydrocortisone Acetate (ANUSOL-HC) 25 Mg Supp.rect, 25 MG RC BID for hemorriods , #15 SUPP.RECT Prov:MAINE ARRIOLA 05/09/16 Reported Medications Lisinopril (LISINOPRIL) 10 Mg Tablet, 10 MG PO QDAY, TAB 12/13/15 Acetaminophen (TYLENOL) 325 Mg Tablet, 650 MG PO Q6H Y for PAIN OR FEVER 100 OR GREATER, TAB 10/14/15 Vitamin E Mixed (VITAMIN E) 400 Unit Capsule, 400 UNIT PO QHS, CAPSULE 10/14/15 Sodium Bicarbonate (SODIUM BICARBONATE) 650 Mg Tablet, 650 MG PO DAILY 10/14/15 Pyridoxine Hcl (VITAMIN B-6) 100 Mg Tablet, 100 MG PO DAILY 10/14/15 Topiramate (TROKENDI XR) 50 Mg Cap.er.24h, 150 MG PO QHS 10/14/15 Hydralazine Hcl (HYDRALAZINE HCL) 100 Mg Tablet, 100 MG PO TID, TAB 10/14/15 Aspirin (ASPIRIN EC) 81 Mg Tablet.dr, 81 MG PO QHS, TAB 10/14/15 Gluc/Keith-Msm#1/C/Jose Ramon/Demetri/Bor (OSTEO BI-FLEX CAPLET) 1 Each Tablet, 2 EACH PO DAILY 02/15/15 Donepezil Hcl (DONEPEZIL HCL) 10 Mg Tab.rapdis, 10 MG PO HS, TAB TAKE 1 TABLET BY MOUTH AT BEDTIME 04/27/14 Fluticasone Prop 50 Mcg Ns (FLONASE 50 MCG NS) 16 Gm [place].susp, 1 SPRAY NS BID 04/27/14 Cyanocobalamin (Vitamin B-12) (VITAMIN B-12) 5,000 Mcg Tab.subl, 5000 MCG PO QHS 04/27/14 Memantine Hcl (Namenda) 10 Mg Tablet, 10 MG PO BID 12/08/12 Amlodipine Besylate (Norvasc) 10 Mg Tablet, 10 MG PO DAILY, 0 Refills 12/15/10 Dutasteride (Avodart) 0.5 Mg Cap, 0.5 MG PO BID, 0 Refills 12/15/10 Reviewed Nurses Notes: Yes Hx Smoking: No Smoking Status: Never Smoker Exposure to Second Hand Smoke?: No Hx Substance Use Disorder: No Hx Alcohol Use: No Constitutional Vital Sign - Last 24 Hours 04/15/18 04/15/18 04/15/18 04/15/18 17:39 18:00 18:05 18:10 Temp 97.8 Pulse 142 146 144 144 Resp 16 25 9 23 B/P (MAP) 87/65 77/58 (64) 95/68 (77) Pulse Ox 95 94 94 94 O2 Delivery Room Air 04/15/18 04/15/18 04/15/18 04/15/18 18:15 18:20 18:25 18:30 Pulse 143 140 71 67 Resp 21 17 8 8 B/P (MAP) 93/70 (78) 110/70 (83) Pulse Ox 92 95 95 94 04/15/18 04/15/18 04/15/18 04/15/18 18:35 18:40 18:50 19:00 Pulse 67 61 Resp 9 8 B/P (MAP) 110/68 (82) 104/61 (75) 100/64 (76) Pulse Ox 94 97 04/15/18 04/15/18 04/15/18 19:05 19:10 19:20 Pulse 48 53 Resp 7 21 B/P (MAP) 100/63 (75) 108/63 (78) Pulse Ox 97 93 Intake and Output 04/15/18 04/15/18 04/16/18 15:00 23:00 07:00 Intake Total 1100 ml Balance 1100 ml Physical Exam General Appearance: The patient is alert. No acute distress. He does recognize me right away when I come into the room. Eyes: Pupils are equal, round. Reactive to light. No pallor, injection or icterus. Extraocular movements are intact. ENT: Mucous membranes are moist. Normal oral mucosa. Posterior oropharynx is normal. Neck: Supple and non tender. No lymphadenopathy. Respiratory: Lungs are clear to auscultation. Cardiovascular: Tachycardia in the 140s, regular. Has a systolic murmur. Normal capillary refill. Trace edema bilateral ankles. Gastrointestinal: Abdomen is soft and non tender. Nondistended. Normal active bowel sounds. Neurological: Alert and oriented to self and place, but not time. Cranial nerves II through XII show no acute deficits on my exam. No focal neurologic deficits in the extremities. Skin: Warm and dry. Musculoskeletal: Extremities are nontender. No tenderness in palpation of the cervical, thoracic and lumbar spine. DIFFERENTIAL DIAGNOSIS: After history and physical exam, differential diagnosis was considered for a patient with symptoms consistent with paroxysmal SVT. Medical Decision Making Data Points Result Diagram: 04/15/18180004/15/181800 Laboratory Hematology Test 04/15/18 18:01 Red Blood Count 4.93 M/uL (4.00-5.60) Mean Corpuscular Volume 82.3 fL (80.0-96.0) Mean Corpuscular Hemoglobin 27.9 pg (26.0-33.0) Mean Corpuscular Hemoglobin Concent 33.9 g/dL (32.0-36.0) Red Cell Distribution Width 14.1 % (11.5-14.5) Mean Platelet Volume 8.8 fL (7.2-11.1) Neutrophils (%) (Auto) 79.3 % (39.4-72.5) Lymphocytes (%) (Auto) 9.8 % (17.6-49.6) Monocytes (%) (Auto) 4.7 % (4.1-12.4) Eosinophils (%) (Auto) 2.8 % (0.4-6.7) Basophils (%) (Auto) 3.4 % (0.3-1.4) Nucleated RBC Relative Count (auto) 0.0 /100WBC Neutrophils # (Auto) 4.0 K/uL (2.0-7.4) Lymphocytes # (Auto) 0.5 K/uL (1.3-3.6) Monocytes # (Auto) 0.2 K/uL (0.3-1.0) Eosinophils # (Auto) 0.1 K/uL (0.0-0.5) Basophils # (Auto) 0.2 K/uL (0.0-0.1) Nucleated RBC Absolute Count (auto) 0.00 K/uL Peripheral Blood Smear Yes Y/N Sodium Level 145 mmol/L (137-145) Potassium Level 3.3 mmol/L (3.5-5.0) Chloride Level 111 mmol/L (98-107) Carbon Dioxide Level 19 mmol/L (22-30) Blood Urea Nitrogen 34 mg/dl (9-21) Creatinine 2.10 mg/dl (0.66-1.25) Glomerular Filtration Rate Calc 31.0 Random Glucose 106 mg/dl (75-110) Calcium Level 9.8 mg/dl (8.4-10.2) Magnesium Level 2.2 mg/dl (1.7-2.2) Total Bilirubin 0.4 mg/dl (0.2-1.3) Aspartate Amino Transf (AST/SGOT) 49 U/L (0-35) Alanine Aminotransferase (ALT/SGPT) 77 U/L (0-56) Alkaline Phosphatase 74 U/L (0-126) Troponin I 0.038 ng/ml Total Protein 8.2 g/dl (6.3-8.2) Albumin 4.2 g/dl (3.5-5.0) Chemistry Test 04/15/18 18:01 White Blood Count 5.1 k/uL (4.5-11.0) Red Blood Count 4.93 M/uL (4.00-5.60) Hemoglobin 13.8 g/dL (14.0-18.0) Hematocrit 40.6 % (42.0-52.0) Mean Corpuscular Volume 82.3 fL (80.0-96.0) Mean Corpuscular Hemoglobin 27.9 pg (26.0-33.0) Mean Corpuscular Hemoglobin Concent 33.9 g/dL (32.0-36.0) Red Cell Distribution Width 14.1 % (11.5-14.5) Platelet Count 168 K/uL (150-450) Mean Platelet Volume 8.8 fL (7.2-11.1) Neutrophils (%) (Auto) 79.3 % (39.4-72.5) Lymphocytes (%) (Auto) 9.8 % (17.6-49.6) Monocytes (%) (Auto) 4.7 % (4.1-12.4) Eosinophils (%) (Auto) 2.8 % (0.4-6.7) Basophils (%) (Auto) 3.4 % (0.3-1.4) Nucleated RBC Relative Count (auto) 0.0 /100WBC Neutrophils # (Auto) 4.0 K/uL (2.0-7.4) Lymphocytes # (Auto) 0.5 K/uL (1.3-3.6) Monocytes # (Auto) 0.2 K/uL (0.3-1.0) Eosinophils # (Auto) 0.1 K/uL (0.0-0.5) Basophils # (Auto) 0.2 K/uL (0.0-0.1) Nucleated RBC Absolute Count (auto) 0.00 K/uL Peripheral Blood Smear Yes Y/N Glomerular Filtration Rate Calc 31.0 Calcium Level 9.8 mg/dl (8.4-10.2) Magnesium Level 2.2 mg/dl (1.7-2.2) Total Bilirubin 0.4 mg/dl (0.2-1.3) Aspartate Amino Transf (AST/SGOT) 49 U/L (0-35) Alanine Aminotransferase (ALT/SGPT) 77 U/L (0-56) Alkaline Phosphatase 74 U/L (0-126) Troponin I 0.038 ng/ml Total Protein 8.2 g/dl (6.3-8.2) Albumin 4.2 g/dl (3.5-5.0) EKG/Imaging EKG Interpretation 12 lead EKG: At 1751 Rhythm: Supraventricular tachycardia, slightly widened QRS with this, rate 142 12 lead EKG: At 1827 Rhythm: Sinus rhythm with first-degree AV block, rate 69 [place]: Left axis deviation QRS: Left ventricular hypertrophy, slight widening ST segments: Nonspecific strain pattern Unchanged from prior EKGs Imaging CHEST SINGLE AP COMPARISONS: March 29, 2018 ADDITIONAL PERTINENT HISTORY: Chest pain with SVT FINDINGS: Cardiomediastinal silhouette: Negative. Pulmonary vasculature: Negative. Lung gastelum: Negative. Pleural spaces: Negative. Osseous structures: Negative. Surrounding soft tissues: Negative. IMPRESSION: No evidence of acute cardiopulmonary disease. Report Dictated By: Ede Glaser MD at 04/15/2018 7:07 PM ED Course/Re-evaluation Clinical Indication for ER IV: Hydration, IV Access ED Course An IV was started immediately. Fluids started and adenosine cardioversion was done. Patient did not convert with the initial 6mg IVP Adenosine, but did convert with the subsequent 12mg IVP. Stable heart rate since then. Still with some fatigue, but improved. He has mild troponin increase which we usually see after his SVT episodes. Mildly low potassium and given 20mEq IV KCl as well as the normal saline. Re-evaluation shows no shortness of breath or chest pain. He has his mild dementia as always, but otherwise normal. Decision to Disposition Date: Apr 15, 2018 Decision to Disposition Time: 20:35 Depart Departure Latest Vital Signs Vital Signs Date Time Temp Pulse Resp B/P (MAP) Pulse Ox O2 Delivery O2 Flow Rate FiO2 04/15/18 19:20 53 21 108/63 (78) 93 04/15/18 17:39 97.8 Room Air Impression: Primary Impression: SVT (supraventricular tachycardia) Condition: Improved Disposition: HOME OR SELF-CARE Referrals: YOLANDA MCKEON MD (PCP) Patient Instructions: Supraventricular Tachycardia (ED) Additional Instructions: No changes to medications. Follow-up with your primary care provider in the next 5-7 days. ISRAEL SCHRADER MD Apr 15, 2018 18:11
[2018-04-15] MEDS ORDERED: ADENOSINE(*)IV SOLN 3MG/ML ONE (18:19)
--- NOTE | 2018-04-15 18:52 | EKG ---
FACILITY: [facility] - [place] PATIENT NAME: YARA MURHPY : [id number] MR: [id number] V: [id number] EXAM DATE: ORDERING PHYSICIAN: ISRAEL SCHRADER TECHNOLOGIST: OLGA Test Reason : CHEST DISCOMFORT Blood Pressure : / mmHG Vent. Rate : 069 BPM Atrial Rate : 069 BPM P-R Int : 224 ms QRS Dur : 138 ms QT Int : 450 ms P-R-T Axes : 000 -58 093 degrees QTc Int : 482 ms Sinus rhythm with 1st degree AV block Left ventricular hypertrophy with QRS widening and repolarization abnormality Incomplete LBBB Left axis deviation Abnormal ECG When compared with ECG of 15-APR-2018 17:51, Vent. rate has decreased BY 73 BPM Confirmed by Kedar Wolfe ([id number]) on 04/15/2018 8:17:49 PM Referred By: DANIEL Confirmed By:Kedar Razo
[2018-04-15 19:03] LABS: PLATELET COUNT, AUTOMATED 168 K/uL (150-450)
--- NOTE | 2018-04-15 19:11 | EKG ---
FACILITY: [facility] PATIENT NAME: YARA MURPHY : [id number] MR: [id number] V: [id number] EXAM DATE: ORDERING PHYSICIAN: ISRAEL SCHRADER TECHNOLOGIST: OLGA Test Reason : CHEST DISCOMFORT Blood Pressure : / mmHG Vent. Rate : 142 BPM Atrial Rate : 144 BPM P-R Int : 000 ms QRS Dur : 128 ms QT Int : 340 ms P-R-T Axes : 000 -53 118 degrees QTc Int : 523 ms Sinus tachycardia with incomplete LBBB Left axis deviation Abnormal ECG When compared with ECG of 29-MAR-2018 03:28, Vent. rate has increased BY 92 BPM Confirmed by Kedar Wolfe ([id number]) on 04/15/2018 8:16:19 PM Referred By: DANIEL Confirmed By:Kedar Razo
--- NOTE | 2018-04-15 19:12 | RADIOLOGY IMAGING REPORT ---
FACILITY: [facility] PATIENT NAME: Randy Gayle : 1945 MR: [id number] V: [id number] EXAM DATE: ORDERING PHYSICIAN: ISRAEL SCHRADER TECHNOLOGIST: Location: [facility] Patient: Randy Gayle : 1945 Visit/Account:[id number] Date of Sevice: 04/15/2018 CHEST SINGLE AP COMPARISONS: March 29, 2018 ADDITIONAL PERTINENT HISTORY: Chest pain with SVT FINDINGS: Cardiomediastinal silhouette: Negative. Pulmonary vasculature: Negative. Lung gastelum: Negative. Pleural spaces: Negative. Osseous structures: Negative. Surrounding soft tissues: Negative. IMPRESSION: No evidence of acute cardiopulmonary disease. Report Dictated By: Ede Glaser MD at 04/15/2018 7:07 PM Report E-Signed By: Ede Glaser MD at 04/15/2018 7:08 PM [id number]
[2018-04-15] MEDS ORDERED: KCL (*) 20 MEQ/100 ML PREMIX 100 ML IV ONE (19:20)
[2018-04-15] MEDS ORDERED: EMS NS 0.9%(*) 1000 ML BAG 1,000 ML IV ONE (19:55)
[2018-04-15] MEDS ORDERED: NS(*) 0.9% 1000 ML BAG 1,000 ML IV ONE (20:00)
== END 2018-04-15 22:05 | disposition home or self-care (01) ==
LOC: ER 18:00
DX: I47.1 Supraventricular tachycardia (principal); Z79.899 Other long term (current) drug therapy
CPT/HCPCS: 71045; 83735; 84484; 85025; 93005; 96361; 96365; 96375; 99284; J0153; J3480; J7030; 82040; 82247; 82310; 82374; 82435; 82565; 82947; 84075; 84132; 84155; 84295; 84450; 84460; 84520

== ENCOUNTER → 2018-04-15 | Outpatient (CLI) | payer MEDICARE, MEDICAID ==
[2016-07-23 16:42] VITALS: BMI 19.1
== END ==
LOC: AMB 17:26
PROVIDERS: ATTEND Nurse Practitioner
DX: R00.0 Tachycardia, unspecified (principal)
CPT/HCPCS: A0425; A0427

== ENCOUNTER 2018-04-26 01:55 | Emergency (ER) | payer MEDICARE, MEDICAID ==
[2016-07-23 16:42] VITALS: BMI 19.1
--- NOTE | 2018-04-26 02:02 | ER Report ---
History and Physical Time Seen By MD: 02:02 HPI/ROS CHIEF COMPLAINT: SVT, chest pain HISTORY OF PRESENT ILLNESS: 73-year-old male well-known to our ER for frequent visits for SVT and chest pain. Patient has difficulty breathing and shortness of breath for several hours tonight. He eventually called 911 to bring him to the ER. Patient denies diaphoresis or nausea. Patient denies leg swelling. She denies fever or productive cough. REVIEW OF SYSTEMS: Respiratory: As above Cardiovascular: As above Gastrointestinal: No vomiting, no abdominal pain. Musculoskeletal: No back pain. Allergies: Coded Allergies: atorvastatin calcium (Verified Allergy, Severe, HIVES, 02/21/18) Home Meds Active Scripts Potassium Chloride (KLOR-CON M20) 20 Meq Tab.er.prt, 20 MEQ PO QDAY, #30 TAB 0 Refills Prov:ISRAEL SCHRADER MD 12/20/16 Polyethylene Glycol 3350 (POLYETHYLENE GLYCOL 3350) 17 Gm Powd.pack, 17 GM PO QDAY, #30 PACK 1 Refill Hold if diarrhea Prov:BALJIT DOWNING MD 07/26/16 Docusate Sodium (DOCUSATE SODIUM) 100 Mg Capsule, 100 MG PO BID, #60 CAPSULE 1 Refill Hold if diarrhea Prov:BALJIT DOWNING MD 07/26/16 Hydrocodone Bit/Acetaminophen (HYDROCODON-ACETAMINOPHEN 5-325) 1 Each Tablet, 1 EACH PO Q6H Y for PAIN, #30 TAB 0 Refills Prov:BALJIT DOWNING MD 07/26/16 Metoprolol Succinate (METOPROLOL SUCCINATE) 25 Mg Tab.er.24h, 1 TAB PO QDAY, # 30 TAB 1 Refill Prov:BALJIT DOWINNG MD 07/26/16 Hydrocortisone (ANUSOL-HC) 30 Gm Cream..g., 2 GM RC TID for rectal pain, #60 2 Refills Prov:MAINE ARRIOLA DO 05/30/16 Hydrocortisone Acetate (ANUSOL-HC) 25 Mg Supp.rect, 25 MG RC BID for hemorriods , #15 SUPP.RECT Prov:MAINE ARRIOLA DO 05/09/16 Reported Medications Lisinopril (LISINOPRIL) 10 Mg Tablet, 10 MG PO QDAY, TAB 12/13/15 Acetaminophen (TYLENOL) 325 Mg Tablet, 650 MG PO Q6H Y for PAIN OR FEVER 100 OR GREATER, TAB 10/14/15 Vitamin E Mixed (VITAMIN E) 400 Unit Capsule, 400 UNIT PO QHS, CAPSULE 10/14/15 Sodium Bicarbonate (SODIUM BICARBONATE) 650 Mg Tablet, 650 MG PO DAILY 10/14/15 Pyridoxine Hcl (VITAMIN B-6) 100 Mg Tablet, 100 MG PO DAILY 10/14/15 Topiramate (TROKENDI XR) 50 Mg Cap.er.24h, 150 MG PO QHS 10/14/15 Hydralazine Hcl (HYDRALAZINE HCL) 100 Mg Tablet, 100 MG PO TID, TAB 10/14/15 Aspirin (ASPIRIN EC) 81 Mg Tablet.dr, 81 MG PO QHS, TAB 10/14/15 Gluc/Keith-Msm#1/C/Jose Ramon/Demetri/Bor (OSTEO BI-FLEX CAPLET) 1 Each Tablet, 2 EACH PO DAILY 02/15/15 Donepezil Hcl (DONEPEZIL HCL) 10 Mg Tab.rapdis, 10 MG PO HS, TAB TAKE 1 TABLET BY MOUTH AT BEDTIME 04/27/14 Fluticasone Prop 50 Mcg Ns (FLONASE 50 MCG NS) 16 Gm [place].susp, 1 SPRAY NS BID 04/27/14 Cyanocobalamin (Vitamin B-12) (VITAMIN B-12) 5,000 Mcg Tab.subl, 5000 MCG PO QHS 04/27/14 Memantine Hcl (Namenda) 10 Mg Tablet, 10 MG PO BID 12/08/12 Amlodipine Besylate (Norvasc) 10 Mg Tablet, 10 MG PO DAILY, 0 Refills 12/15/10 Dutasteride (Avodart) 0.5 Mg Cap, 0.5 MG PO BID, 0 Refills 12/15/10 Discontinued Scripts Tramadol Hcl (TRAMADOL HCL) 50 Mg Tablet, 1 TAB PO TID Y for PAIN, #15 MG TAKE ONE TO TWO TABLETS BY MOUTH EVERY FOUR TO SIX HOURS NEEDED Prov:LAZARO FIELD DO 07/13/17 Reviewed Nurses Notes: Yes Old Medical Records Reviewed: Yes Hx Smoking: No Smoking Status: Never Smoker Exposure to Second Hand Smoke?: No Hx Substance Use Disorder: No Hx Alcohol Use: No Constitutional Vital Sign - Last 24 Hours 04/26/18 04/26/18 04/26/18 04/26/18 01:58 02:00 02:05 02:15 Temp 97.8 Pulse 160 159 153 Resp 18 13 12 89 B/P (MAP) 106/80 120/77 (91) Pulse Ox 96 97 97 97 O2 Delivery Room Air 04/26/18 04/26/18 04/26/18 04/26/18 02:20 02:23 02:30 02:35 Pulse 69 69 Resp 11 23 40 B/P (MAP) 116/76 (89) Pulse Ox 97 98 95 O2 Flow Rate 2.0 04/26/18 04/26/18 04/26/18 02:45 02:50 02:55 Pulse 75 69 Resp 22 15 20 B/P (MAP) 109/73 (85) Pulse Ox 97 97 97 Physical Exam General Appearance: The patient is alert, has no immediate need for airway protection and no current signs of toxicity. Mild distress, tachycardia on the monitor SVT 151 HEENT: Pupils equal and round no injection. Pharynx without redness or exudate , mucous. Membranes are moist Respiratory: Chest is non tender, lungs are clear to auscultation. Cardiac: regular rate and rhythm, tachycardic Gastrointestinal: Abdomen is soft and non tender, no masses, bowel sounds normal. Musculoskeletal: Neck: Neck is supple and non tender. Extremities have full range of motion and are non tender. No edema, no calf tenderness Skin: No rashes or lesions. DIFFERENTIAL DIAGNOSIS: After history and physical exam differential diagnosis was considered for chest pain including but not limited to myocardial ischemia, pericarditis pulmonary embolus, chest wall pain, pleural inflammation, dysrhythmia and pulmonary infectious causes. Medical Decision Making Data Points Result Diagram: 04/26/1820104/26/18 0202 Laboratory Hematology Test 04/26/18 02:02 Red Blood Count 4.75 M/uL (4.00-5.60) Mean Corpuscular Volume 82.9 fL (80.0-96.0) Mean Corpuscular Hemoglobin 28.4 pg (26.0-33.0) Mean Corpuscular Hemoglobin Concent 34.3 g/dL (32.0-36.0) Red Cell Distribution Width 14.5 % (11.5-14.5) Mean Platelet Volume 8.4 fL (7.2-11.1) Neutrophils (%) (Auto) 58.7 % (39.4-72.5) Lymphocytes (%) (Auto) 22.2 % (17.6-49.6) Monocytes (%) (Auto) 12.4 % (4.1-12.4) Eosinophils (%) (Auto) 4.7 % (0.4-6.7) Basophils (%) (Auto) 2.0 % (0.3-1.4) Nucleated RBC Relative Count (auto) 0.1 /100WBC Neutrophils # (Auto) 2.6 K/uL (2.0-7.4) Lymphocytes # (Auto) 1.0 K/uL (1.3-3.6) Monocytes # (Auto) 0.5 K/uL (0.3-1.0) Eosinophils # (Auto) 0.2 K/uL (0.0-0.5) Basophils # (Auto) 0.1 K/uL (0.0-0.1) Nucleated RBC Absolute Count (auto) 0.00 K/uL Sodium Level 143 mmol/L (137-145) Potassium Level 3.3 mmol/L (3.5-5.0) Chloride Level 110 mmol/L (98-107) Carbon Dioxide Level 20 mmol/L (22-30) Blood Urea Nitrogen 37 mg/dl (9-21) Creatinine 2.00 mg/dl (0.66-1.25) Glomerular Filtration Rate Calc 32.7 Random Glucose 102 mg/dl (75-110) Calcium Level 9.9 mg/dl (8.4-10.2) Total Bilirubin 0.4 mg/dl (0.2-1.3) Aspartate Amino Transf (AST/SGOT) 64 U/L (0-35) Alanine Aminotransferase (ALT/SGPT) 93 U/L (0-56) Alkaline Phosphatase 81 U/L (0-126) Troponin I 0.038 ng/ml B-Type Natriuretic Peptide 266 pg/ml (0-100) Total Protein 8.3 g/dl (6.3-8.2) Albumin 4.3 g/dl (3.5-5.0) Chemistry Test 04/26/18 02:02 White Blood Count 4.4 k/uL (4.5-11.0) Red Blood Count 4.75 M/uL (4.00-5.60) Hemoglobin 13.5 g/dL (14.0-18.0) Hematocrit 39.4 % (42.0-52.0) Mean Corpuscular Volume 82.9 fL (80.0-96.0) Mean Corpuscular Hemoglobin 28.4 pg (26.0-33.0) Mean Corpuscular Hemoglobin Concent 34.3 g/dL (32.0-36.0) Red Cell Distribution Width 14.5 % (11.5-14.5) Platelet Count 152 K/uL (150-450) Mean Platelet Volume 8.4 fL (7.2-11.1) Neutrophils (%) (Auto) 58.7 % (39.4-72.5) Lymphocytes (%) (Auto) 22.2 % (17.6-49.6) Monocytes (%) (Auto) 12.4 % (4.1-12.4) Eosinophils (%) (Auto) 4.7 % (0.4-6.7) Basophils (%) (Auto) 2.0 % (0.3-1.4) Nucleated RBC Relative Count (auto) 0.1 /100WBC Neutrophils # (Auto) 2.6 K/uL (2.0-7.4) Lymphocytes # (Auto) 1.0 K/uL (1.3-3.6) Monocytes # (Auto) 0.5 K/uL (0.3-1.0) Eosinophils # (Auto) 0.2 K/uL (0.0-0.5) Basophils # (Auto) 0.1 K/uL (0.0-0.1) Nucleated RBC Absolute Count (auto) 0.00 K/uL Glomerular Filtration Rate Calc 32.7 Calcium Level 9.9 mg/dl (8.4-10.2) Total Bilirubin 0.4 mg/dl (0.2-1.3) Aspartate Amino Transf (AST/SGOT) 64 U/L (0-35) Alanine Aminotransferase (ALT/SGPT) 93 U/L (0-56) Alkaline Phosphatase 81 U/L (0-126) Troponin I 0.038 ng/ml B-Type Natriuretic Peptide 266 pg/ml (0-100) Total Protein 8.3 g/dl (6.3-8.2) Albumin 4.3 g/dl (3.5-5.0) EKG/Imaging EKG Interpretation 12 lead EK Rhythm: SVT with a rate of 151 bpm [place]: normal QRS: QRS widening and repolarization ST segments: normal 12 lead EKG: Repeat after cardioversion with adenosine 12 mg 0214 Rhythm: normal sinus rhythm with occasional PVC [place]: normal QRS: Wide QRS with left bundle branch block pattern ST segments: normal ED Course/Re-evaluation Clinical Indication for ER IV: IV Access ED Course Patient was admitted to an examination room. H&P was done. The differential diagnoses was considered. An immediate EKG shows SVT at a rate of 150. Patient had a peripheral IV established diagnostic bloods were sent off. Patient was given 12 mg of adenosine since last time he did not convert with 6 kg of adenosine. Patient probably converted to a sinus rhythm at approximately 70 bpm. His troponin was mildly elevated in the indeterminate zone, which is normal for him. He has chronic renal failure. His labs are about baseline. Patient will be discharged home now that he is in a stable rate. He was given potassium orally for his 3.3 potassium. Decision to Disposition Date: Apr 26, 2018 Decision to Disposition Time: 02:43 Critical Care Time I spent a total of 30 minutes of critical care time in obtaining history, performing a physical exam, bedside monitoring of interventions, collecting and interpreting tests and discussion with consultants but not including time spent performing procedures. Depart Departure Latest Vital Signs Vital Signs Date Time Temp Pulse Resp B/P (MAP) Pulse Ox O2 Delivery O2 Flow Rate FiO2 04/26/18 02:55 69 20 97 04/26/18 02:45 109/73 (85) 04/26/18 02:23 2.0 04/26/18 01:58 97.8 Room Air Impression: Primary Impression: SVT (supraventricular tachycardia) Additional Impressions: Hypokalemia Chest pain Chronic renal failure Condition: Improved Disposition: HOME OR SELF-CARE Referrals: YOLANDA MCKEON MD (PCP) Patient Instructions: Supraventricular Tachycardia (ED) Additional Instructions: Follow-up with your primary care within 1 week Problem Qualifiers Additional Impressions: Chest pain Chest pain type: unspecified Qualified Codes: R07.9 - Chest pain, unspecified Chronic renal failure Chronic kidney disease stage: unspecified stage Qualified Codes: N18.9 - Chronic kidney disease, unspecified LAZARO FIELD DO Apr 26, 2018 02:02
[2018-04-26] MEDS ORDERED: ASPIRIN 81 MG CHEW PO ONE (02:05)
[2018-04-26] MEDS ORDERED: ADENOSINE(*)IV SOLN 3MG/ML IVP ONE (02:05)
[2018-04-26] MEDS ORDERED: ADENOSINE(*)IV SOLN 3MG/ML ONE (02:07)
[2018-04-26 02:17] LABS: PLATELET COUNT, AUTOMATED 152 K/uL (150-450)
--- NOTE | 2018-04-26 02:23 | EKG ---
[place]AC[place] [facility] [place] NAME: YARA MURPHY : [id number] MR: [id number] V: [id number] EXAM DATE: ORDERING PHYSICIAN: LAZARO FIELD TECHNOLOGIST: OLGA Test Reason : CHEST TIGHTNESS Blood Pressure : / mmHG Vent. Rate : 151 BPM Atrial Rate : 144 BPM P-R Int : 000 ms QRS Dur : 128 ms QT Int : 332 ms P-R-T Axes : 000 -51 115 degrees QTc Int : 526 ms Wide QRS tachycardia Left ventricular hypertrophy with QRS widening and repolarization abnormality Abnormal ECG When compared with ECG of 15-APR-2018 18:27, Wide QRS tachycardia has replaced Sinus rhythm Vent. rate has increased BY 82 BPM Confirmed by LEONEL ANGELES ([id number]) on 04/26/2018 6:21:32 AM Referred By: Confirmed By:LEONEL ANGELES
[2018-04-26] MEDS ORDERED: POTASSIUM CHL 20 MEQ TABCR PO ONE (02:30)
[2018-04-26 02:45] VITALS: BP 109/73
== END 2018-04-26 03:12 | disposition home or self-care (01) ==
LOC: ER 01:57
DX: I47.1 Supraventricular tachycardia (principal); N18.9 Chronic kidney disease, unspecified; R07.89 Other chest pain; E87.6 Hypokalemia
CPT/HCPCS: 83880; 84484; 85025; 93005; 99283; A9270; J0153; 82040; 82247; 82310; 82374; 82435; 82565; 82947; 84075; 84132; 84155; 84295; 84450; 84460; 84520

== ENCOUNTER → 2018-04-26 | Outpatient (CLI) | payer MEDICARE, MEDICAID ==
[2016-07-23 16:42] VITALS: BMI 19.1
== END ==
LOC: AMB 01:38
PROVIDERS: ATTEND Nurse Practitioner
DX: R07.9 Chest pain, unspecified (principal); I47.1 Supraventricular tachycardia
CPT/HCPCS: A0425; A0427

== ENCOUNTER → 2018-04-26 | Outpatient (CLI) | payer MEDICARE, MEDICAID ==
[2016-07-23 16:42] VITALS: BMI 19.1
== END ==
LOC: AMB 03:10
PROVIDERS: ATTEND Nurse Practitioner
DX: I10 Essential (primary) hypertension (principal)
CPT/HCPCS: A0425; A0428

== ENCOUNTER 2018-05-30 22:43 | Emergency (ER) | payer MEDICARE, MEDICAID ==
[2016-07-23 16:42] VITALS: Wt 66.7 kg
--- NOTE | 2018-05-30 22:58 | ER Report ---
History and Physical Time Seen By MD: 22:58 Hx. of Stated Complaint: pt reports he is "disoriented" brought by ems due to chest pain HPI/ROS CHIEF COMPLAINT: chest pain HISTORY OF PRESENT ILLNESS: This is a 73 year old male. He states that he was having chest pain tonight, and then he was not feeling right, stating that he was not thinking clearly. His chest pain was pressure in central chest, non- radiating. He denies shortness of breath. He did have a little nausea, but not now. He denies cough or fever. The only thing he can really tell me is that he did not feel like he was thinking right. He does have some dementia, and always has some confusion, but still lives alone. REVIEW OF SYSTEMS: Constitutional: No fever or chills. Eyes: No vision changes. ENT: No sore throat. Cardiovascular: As above. Respiratory: No shortness of breath. Gastrointestinal: No abdominal pain. Musculoskeletal: No muscle pain. Neurological: No headache. Allergies: Coded Allergies: atorvastatin calcium (Verified Allergy, Severe, HIVES, 02/21/18) Home Meds Active Scripts Potassium Chloride (KLOR-CON M20) 20 Meq Tab.er.prt, 20 MEQ PO QDAY, #30 TAB 0 Refills Prov:ISRAEL SCHRADER MD 12/20/16 Polyethylene Glycol 3350 (POLYETHYLENE GLYCOL 3350) 17 Gm Powd.pack, 17 GM PO QDAY, #30 PACK 1 Refill Hold if diarrhea Prov:BALJIT DOWNING MD 07/26/16 Docusate Sodium (DOCUSATE SODIUM) 100 Mg Capsule, 100 MG PO BID, #60 CAPSULE 1 Refill Hold if diarrhea Prov:BALJIT DOWNING MD 07/26/16 Hydrocodone Bit/Acetaminophen (HYDROCODON-ACETAMINOPHEN 5-325) 1 Each Tablet, 1 EACH PO Q6H PRN for PAIN, #30 TAB 0 Refills Prov:BALJIT DOWNING MD 07/26/16 Metoprolol Succinate (METOPROLOL SUCCINATE) 25 Mg Tab.er.24h, 1 TAB PO QDAY, #30 TAB 1 Refill Prov:BALJIT DOWNING MD 07/26/16 Hydrocortisone (ANUSOL-HC) 30 Gm Cream..g., 2 GM RC TID for rectal pain, #60 2 Refills Prov:MAINE ARRIOLA DO 05/30/16 Hydrocortisone Acetate (ANUSOL-HC) 25 Mg Supp.rect, 25 MG RC BID for hemorriods, #15 SUPP.RECT Prov:MAINE ARRIOLA DO 05/09/16 Reported Medications Lisinopril (LISINOPRIL) 10 Mg Tablet, 10 MG PO QDAY, TAB 12/13/15 Acetaminophen (TYLENOL) 325 Mg Tablet, 650 MG PO Q6H PRN for PAIN OR FEVER 100 OR GREATER, TAB 10/14/15 Vitamin E Mixed (VITAMIN E) 400 Unit Capsule, 400 UNIT PO QHS, CAPSULE 10/14/15 Sodium Bicarbonate (SODIUM BICARBONATE) 650 Mg Tablet, 650 MG PO DAILY 10/14/15 Pyridoxine Hcl (VITAMIN B-6) 100 Mg Tablet, 100 MG PO DAILY 10/14/15 Topiramate (TROKENDI XR) 50 Mg Cap.er.24h, 150 MG PO QHS 10/14/15 Hydralazine Hcl (HYDRALAZINE HCL) 100 Mg Tablet, 100 MG PO TID, TAB 10/14/15 Aspirin (ASPIRIN EC) 81 Mg Tablet.dr, 81 MG PO QHS, TAB 10/14/15 Gluc/Keith-Msm#1/C/Jose Ramon/Demetri/Bor (OSTEO BI-FLEX CAPLET) 1 Each Tablet, 2 EACH PO DAILY 02/15/15 Donepezil Hcl (DONEPEZIL HCL) 10 Mg Tab.rapdis, 10 MG PO HS, TAB TAKE 1 TABLET BY MOUTH AT BEDTIME 04/27/14 Fluticasone Prop 50 Mcg Ns (FLONASE 50 MCG NS) 16 Gm [place].susp, 1 SPRAY NS BID 04/27/14 Cyanocobalamin (Vitamin B-12) (VITAMIN B-12) 5,000 Mcg Tab.subl, 5000 MCG PO QHS 04/27/14 Memantine Hcl (Namenda) 10 Mg Tablet, 10 MG PO BID 12/08/12 Amlodipine Besylate (Norvasc) 10 Mg Tablet, 10 MG PO DAILY, 0 Refills 12/15/10 Dutasteride (Avodart) 0.5 Mg Cap, 0.5 MG PO BID, 0 Refills 12/15/10 Reviewed Nurses Notes: Yes Hx Smoking: No Smoking Status: Never Smoker Exposure to Second Hand Smoke?: No Hx Substance Use Disorder: No Hx Alcohol Use: No Constitutional Vital Sign - Last 24 Hours 05/30/18 05/30/18 05/30/18 05/30/18 22:43 22:44 22:45 22:58 Temp 98.1 Pulse ??? 68 69 Resp 16 32 B/P (MAP) 111/71 (84) 111/71 111/75 (87) Pulse Ox 94 95 O2 Delivery Room Air 05/30/18 05/30/18 05/30/18 05/30/18 23:00 23:13 23:28 23:30 Pulse 68 ??? Resp 7 B/P (MAP) 114/68 (83) ???/??? (1665) Pulse Ox 95 05/30/18 05/30/18 05/31/18 05/31/18 23:43 23:58 00:00 00:13 Pulse 65 65 64 Resp 13 30 9 B/P (MAP) 109/68 (82) Pulse Ox 94 95 97 05/31/18 05/31/18 05/31/18 05/31/18 00:28 00:30 00:35 00:50 Pulse 62 56 52 Resp 23 0 10 B/P (MAP) 125/99 (108) Pulse Ox 97 05/31/18 05/31/18 05/31/18 05/31/18 01:00 01:05 01:20 01:30 Pulse 51 46 Resp 19 9 B/P (MAP) 123/68 (86) 123/70 (87) Pulse Ox 95 97 05/31/18 05/31/18 05/31/18 05/31/18 01:35 01:50 02:00 02:05 Pulse 45 43 50 Resp 0 15 13 B/P (MAP) 137/120 (126) Pulse Ox 97 97 97 05/31/18 05/31/18 05/31/18 05/31/18 02:20 02:30 02:35 02:50 Pulse 49 ??? 46 Resp 9 21 0 B/P (MAP) 117/71 (86) Pulse Ox 96 95 96 05/31/18 05/31/18 05/31/18 05/31/18 03:00 03:05 03:20 03:30 Pulse 47 48 Resp 29 28 B/P (MAP) 129/75 (93) 135/68 (90) Pulse Ox 94 97 05/31/18 05/31/18 05/31/18 05/31/18 03:35 03:50 04:00 04:05 Pulse 49 47 49 Resp 22 B/P (MAP) 146/63 (90) Pulse Ox 96 97 97 05/31/18 05/31/18 05/31/18 05/31/18 04:20 04:30 04:35 04:50 Pulse 47 51 40 Resp 22 24 28 B/P (MAP) 129/76 (93) Pulse Ox 95 87 98 05/31/18 05/31/18 05/31/18 05/31/18 05:00 05:05 05:20 05:30 Pulse 46 ??? Resp 33 B/P (MAP) 127/110 (116) 119/69 (86) Pulse Ox 97 05/31/18 05/31/18 05/31/18 05/31/18 05:35 05:50 06:00 06:05 Pulse ??? 41 ??? B/P (MAP) 129/73 (91) 05/31/18 05/31/18 05/31/18 06:20 06:30 06:35 Pulse ??? 47 Resp 32 B/P (MAP) 143/73 (96) Intake and Output 05/30/18 05/30/18 05/31/18 15:00 23:00 07:00 Intake Total 1000 ml Balance 1000 ml Physical Exam General Appearance: The patient is alert. No acute distress. Eyes: Pupils are equal, round. Reactive to light. No pallor, injection or icterus. Extraocular movements are intact. ENT: Mucous membranes are moist. Normal oral mucosa. Posterior oropharynx is normal. Neck: Supple and non tender. No lymphadenopathy. Respiratory: Lungs are clear to auscultation. Cardiovascular: Regular rate and rhythm. No murmurs, gallops or rubs. Normal capillary refill. No edema. Gastrointestinal: Abdomen is soft and non tender. Nondistended. Normal active bowel sounds. Neurological: Alert and oriented to person and place, but not to time. No focal deficits noted. Skin: Warm and dry. No rashes. Musculoskeletal: Extremities are nontender. No tenderness in palpation of the cervical, thoracic and lumbar spine. DIFFERENTIAL DIAGNOSIS: After history and physical exam, differential diagnosis was considered for chest pain including but not limited to myocardial ischemia, pericarditis pulmonary embolus, chest wall pain, pleural inflammation and pulmonary infectious causes. Medical Decision Making Data Points Result Diagram: 05/30/18224905/30/182249 Laboratory Hematology Test 05/30/18 22:50 05/31/18 05:36 Red Blood Count 4.37 M/uL (4.00-5.60) Mean Corpuscular Volume 82.1 fL (80.0-96.0) Mean Corpuscular Hemoglobin 28.0 pg (26.0-33.0) Mean Corpuscular Hemoglobin Concent 34.1 g/dL (32.0-36.0) Red Cell Distribution Width 14.5 % (11.5-14.5) Mean Platelet Volume 8.4 fL (7.2-11.1) Neutrophils (%) (Auto) 61.6 % (39.4-72.5) Lymphocytes (%) (Auto) 21.3 % (17.6-49.6) Monocytes (%) (Auto) 10.1 % (4.1-12.4) Eosinophils (%) (Auto) 5.0 % (0.4-6.7) Basophils (%) (Auto) 2.0 % (0.3-1.4) Nucleated RBC Relative Count (auto) 0.1 /100WBC Neutrophils # (Auto) 2.2 K/uL (2.0-7.4) Lymphocytes # (Auto) 0.8 K/uL (1.3-3.6) Monocytes # (Auto) 0.4 K/uL (0.3-1.0) Eosinophils # (Auto) 0.2 K/uL (0.0-0.5) Basophils # (Auto) 0.1 K/uL (0.0-0.1) Nucleated RBC Absolute Count (auto) 0.00 K/uL Sodium Level 143 mmol/L (137-145) Potassium Level 3.1 mmol/L (3.5-5.0) Chloride Level 110 mmol/L (98-107) Carbon Dioxide Level 20 mmol/L (22-30) Blood Urea Nitrogen 36 mg/dl (9-21) Creatinine 2.00 mg/dl (0.66-1.25) Glomerular Filtration Rate Calc 32.7 Random Glucose 117 mg/dl (75-110) Calcium Level 9.5 mg/dl (8.4-10.2) Total Bilirubin 0.3 mg/dl (0.2-1.3) Aspartate Amino Transf (AST/SGOT) 49 U/L (0-35) Alanine Aminotransferase (ALT/SGPT) 59 U/L (0-56) Alkaline Phosphatase 57 U/L (0-126) Total Protein 7.6 g/dl (6.3-8.2) Albumin 3.8 g/dl (3.5-5.0) Troponin I 0.057 ng/ml Chemistry Test 05/30/18 22:50 05/31/18 05:36 White Blood Count 3.6 k/uL (4.5-11.0) Red Blood Count 4.37 M/uL (4.00-5.60) Hemoglobin 12.2 g/dL (14.0-18.0) Hematocrit 35.9 % (42.0-52.0) Mean Corpuscular Volume 82.1 fL (80.0-96.0) Mean Corpuscular Hemoglobin 28.0 pg (26.0-33.0) Mean Corpuscular Hemoglobin Concent 34.1 g/dL (32.0-36.0) Red Cell Distribution Width 14.5 % (11.5-14.5) Platelet Count 164 K/uL (150-450) Mean Platelet Volume 8.4 fL (7.2-11.1) Neutrophils (%) (Auto) 61.6 % (39.4-72.5) Lymphocytes (%) (Auto) 21.3 % (17.6-49.6) Monocytes (%) (Auto) 10.1 % (4.1-12.4) Eosinophils (%) (Auto) 5.0 % (0.4-6.7) Basophils (%) (Auto) 2.0 % (0.3-1.4) Nucleated RBC Relative Count (auto) 0.1 /100WBC Neutrophils # (Auto) 2.2 K/uL (2.0-7.4) Lymphocytes # (Auto) 0.8 K/uL (1.3-3.6) Monocytes # (Auto) 0.4 K/uL (0.3-1.0) Eosinophils # (Auto) 0.2 K/uL (0.0-0.5) Basophils # (Auto) 0.1 K/uL (0.0-0.1) Nucleated RBC Absolute Count (auto) 0.00 K/uL Glomerular Filtration Rate Calc 32.7 Calcium Level 9.5 mg/dl (8.4-10.2) Total Bilirubin 0.3 mg/dl (0.2-1.3) Aspartate Amino Transf (AST/SGOT) 49 U/L (0-35) Alanine Aminotransferase (ALT/SGPT) 59 U/L (0-56) Alkaline Phosphatase 57 U/L (0-126) Total Protein 7.6 g/dl (6.3-8.2) Albumin 3.8 g/dl (3.5-5.0) Troponin I 0.057 ng/ml EKG/Imaging EKG Interpretation 12 lead EKG: Rhythm: Sinus rhythm with first-degree AV block, rate 69 Sargeant: normal QRS: Left ventricular hypertrophy ST segments: Nonspecific changes, no changes when compared to his last EKGs Imaging EXAMINATION: Chest radiographs 2 views HISTORY: Chest pain. COMPARISON: 04/15/2018. FINDINGS: AP and lateral views of the chest are submitted. Lines/tubes: None. Lungs/pleura: No focal consolidation or pleural effusion. Heart: Negative. Mediastinum: The aorta is mildly tortuous and calcified. Bony structures/body wall: Negative. IMPRESSION: No radiographic evidence of acute cardiopulmonary disease. Report Dictated By: Pooja Nickerson MD at 05/30/2018 11:47 PM ED Course/Re-evaluation Clinical Indication for ER IV: Hydration, IV Access ED Course Repeat troponin levels showed a slight increase in the first and no increase in the second. He remained pain free. Decision to Disposition Date: May 31, 2018 Decision to Disposition Time: 06:32 Depart Departure Latest Vital Signs Vital Signs Date Time Temp Pulse Resp B/P (MAP) Pulse Ox O2 Delivery O2 Flow Rate FiO2 05/31/18 06:35 47 32 05/31/18 06:30 143/73 (96) 05/31/18 05:05 97 05/30/18 22:45 98.1 Room Air Impression: Primary Impression: Chest pain Condition: Improved Disposition: HOME OR SELF-CARE Referrals: YOLANDA MCKEON MD (PCP) Patient Instructions: Chest Pain (ED) Problem Qualifiers Primary Impression: Chest pain Chest pain type: unspecified Qualified Codes: R07.9 - Chest pain, unspecified ISRAEL SCHRADER MD May 30, 2018 22:58
[2018-05-30 23:32] LABS: PLATELET COUNT, AUTOMATED 164 K/uL (150-450)
--- NOTE | 2018-05-30 23:57 | RADIOLOGY IMAGING REPORT ---
[place] [facility] [place] NAME: Randy Gayle : 1945 MR: [id number] V: [id number] EXAM DATE: ORDERING PHYSICIAN: ISRAEL SCHRADER TECHNOLOGIST: Location: [facility] Patient: Randy Gayle : 1945 Visit/Account:[id number] Date of Sevice: 05/30/2018 EXAMINATION: Chest radiographs 2 views HISTORY: Chest pain. COMPARISON: 04/15/2018. FINDINGS: AP and lateral views of the chest are submitted. Lines/tubes: None. Lungs/pleura: No focal consolidation or pleural effusion. Heart: Negative. Mediastinum: The aorta is mildly tortuous and calcified. Bony structures/body wall: Negative. IMPRESSION: No radiographic evidence of acute cardiopulmonary disease. Report Dictated By: Pooja Nickreson MD at 05/30/2018 11:47 PM Report E-Signed By: Pooja Nickerson MD at 05/30/2018 11:52 PM [id number]
[2018-05-31] MEDS ORDERED: POTASSIUM CHL 20 MEQ TABCR PO ONE
[2018-05-31] MEDS ORDERED: NS(*) 0.9% 1000 ML BAG 1,000 ML IV ONE
--- NOTE | 2018-05-31 01:10 | EKG ---
FACILITY: [facility] PATIENT NAME: YARA MURPHY : [id number] MR: [id number] V: [id number] EXAM DATE: ORDERING PHYSICIAN: ISRAEL SCHRADER TECHNOLOGIST: MIRIAM Santos Reason : CHEST PAIN Blood Pressure : / mmHG Vent. Rate : 069 BPM Atrial Rate : 069 BPM P-R Int : 242 ms QRS Dur : 140 ms QT Int : 446 ms P-R-T Axes : 019 -57 096 degrees QTc Int : 477 ms Sinus rhythm with 1st degree AV block Nonspecific interventricular conduction delay Left ventricular hypertrophy Diffuse nonspecific ST findings Somewhat tall T waves Abnormal ECG Confirmed by BALJIT DOWNING ([id number]) on 05/31/2018 3:43:10 AM Referred By: Confirmed By:BALJIT DOWNING
[2018-05-31 06:30] VITALS: BP 143/73
== END 2018-05-31 07:15 | disposition home or self-care (01) ==
LOC: ER 22:48
DX: R07.9 Chest pain, unspecified (principal); I44.0 Atrioventricular block, first degree; R94.31 Abnormal electrocardiogram [ECG] [EKG]
CPT/HCPCS: 36415; 71046; 84484; 85025; 93005; 96360; 99284; A9270; J7030; 82040; 82247; 82310; 82374; 82435; 82565; 82947; 84075; 84132; 84155; 84295; 84450; 84460; 84520

== ENCOUNTER → 2018-05-30 | Outpatient (CLI) | payer MEDICARE, MEDICAID ==
[2016-07-23 16:42] VITALS: BMI 19.1
== END ==
LOC: AMB 22:24
PROVIDERS: ATTEND Nurse Practitioner
DX: R07.9 Chest pain, unspecified (principal); R50.9 Fever, unspecified
CPT/HCPCS: A0425; A0427

== ENCOUNTER → 2018-05-31 | Outpatient (CLI) | payer MEDICARE, MEDICAID ==
[2016-07-23 16:42] VITALS: BMI 19.1
== END ==
LOC: AMB 06:54
PROVIDERS: ATTEND Nurse Practitioner
DX: R07.9 Chest pain, unspecified (principal)
CPT/HCPCS: A0425; A0428

== ENCOUNTER 2018-07-29 06:47 | Emergency (ER) | payer MEDICARE, MEDICAID ==
[2016-07-23 16:42] VITALS: Wt 50.8 kg
--- NOTE | 2018-07-29 06:48 | ER Report ---
History and Physical Time Seen By MD: 06:48 (ISRAEL DUNAWAY MD) HPI/ROS CHIEF COMPLAINT: Chest pain and shortness of breath HISTORY OF PRESENT ILLNESS: This is a 73-year-old male. He has a history of SVT, called EMS this morning causes his heart was racing his having chest pain as well as shortness of breath. He came in with a rapid heart rate and blood pressure being a little bit low. He denies any recent illness or fevers or chills. He is feeling some increased fatigue. He denies any musculoskeletal pain at this time. (ISRAEL DUNAWAY MD) Allergies: Coded Allergies: atorvastatin calcium (Verified Allergy, Severe, HIVES, 07/29/18) Home Meds Active Scripts Potassium Chloride (KLOR-CON M20) 20 Meq Tab.er.prt, 20 MEQ PO QDAY, #30 TAB 0 Refills Prov:ISRAEL DUNAWAY MD 12/20/16 Polyethylene Glycol 3350 (POLYETHYLENE GLYCOL 3350) 17 Gm Powd.pack, 17 GM PO QDAY, #30 PACK 1 Refill Hold if diarrhea Prov:BALJIT DOWNING MD 07/26/16 Docusate Sodium (DOCUSATE SODIUM) 100 Mg Capsule, 100 MG PO BID, #60 CAPSULE 1 Refill Hold if diarrhea Prov:BALJIT DOWNING MD 07/26/16 Hydrocodone Bit/Acetaminophen (HYDROCODON-ACETAMINOPHEN 5-325) 1 Each Tablet, 1 EACH PO Q6H PRN for PAIN, #30 TAB 0 Refills Prov:BALJIT DOWNING MD 07/26/16 Metoprolol Succinate (METOPROLOL SUCCINATE) 25 Mg Tab.er.24h, 1 TAB PO QDAY, #30 TAB 1 Refill Prov:BALJIT DOWNING MD 07/26/16 Hydrocortisone (ANUSOL-HC) 30 Gm Cream..g., 2 GM RC TID for rectal pain, #60 2 Refills Prov:MAINE ARRIOLA DO 05/30/16 Hydrocortisone Acetate (ANUSOL-HC) 25 Mg Supp.rect, 25 MG RC BID for hemorriods, #15 SUPP.RECT Prov:MAINE ARRIOLA DO 05/09/16 Reported Medications Lisinopril (LISINOPRIL) 10 Mg Tablet, 10 MG PO QDAY, TAB 12/13/15 Acetaminophen (TYLENOL) 325 Mg Tablet, 650 MG PO Q6H PRN for PAIN OR FEVER 100 OR GREATER, TAB 10/14/15 Vitamin E Mixed (VITAMIN E) 400 Unit Capsule, 400 UNIT PO QHS, CAPSULE 10/14/15 Sodium Bicarbonate (SODIUM BICARBONATE) 650 Mg Tablet, 650 MG PO DAILY 10/14/15 Pyridoxine Hcl (VITAMIN B-6) 100 Mg Tablet, 100 MG PO DAILY 10/14/15 Topiramate (TROKENDI XR) 50 Mg Cap.er.24h, 150 MG PO QHS 10/14/15 Hydralazine Hcl (HYDRALAZINE HCL) 100 Mg Tablet, 100 MG PO TID, TAB 10/14/15 Aspirin (ASPIRIN EC) 81 Mg Tablet.dr, 81 MG PO QHS, TAB 10/14/15 Gluc/Keith-Msm#1/C/Jose Ramon/Demetri/Bor (OSTEO BI-FLEX CAPLET) 1 Each Tablet, 2 EACH PO DAILY 02/15/15 Donepezil Hcl (DONEPEZIL HCL) 10 Mg Tab.rapdis, 10 MG PO HS, TAB TAKE 1 TABLET BY MOUTH AT BEDTIME 04/27/14 Fluticasone Prop 50 Mcg Ns (FLONASE 50 MCG NS) 16 Gm [place].susp, 1 SPRAY NS BID 04/27/14 Cyanocobalamin (Vitamin B-12) (VITAMIN B-12) 5,000 Mcg Tab.subl, 5000 MCG PO QHS 04/27/14 Memantine Hcl (Namenda) 10 Mg Tablet, 10 MG PO BID 12/08/12 Amlodipine Besylate (Norvasc) 10 Mg Tablet, 10 MG PO DAILY, 0 Refills 12/15/10 Dutasteride (Avodart) 0.5 Mg Cap, 0.5 MG PO BID, 0 Refills 12/15/10 Reviewed Nurses Notes: Yes (ISRAEL DUNAWAY MD) Hx Smoking: No Smoking Status: Never Smoker Exposure to Second Hand Smoke?: No Hx Substance Use Disorder: No Hx Alcohol Use: No (ISRAEL DUNAWAY MD) Constitutional Vital Sign - Last 24 Hours 07/29/18 07/29/18 07/29/18 07/29/18 06:47 06:53 06:54 06:59 Pulse ??? 146 Resp 16 B/P (MAP) 84/63 (70) 80/66 80/61 (67) Pulse Ox 98 O2 Delivery Nasal Cannula 07/29/18 07/29/18 07/29/18 07/29/18 07:00 07:02 07:05 07:10 Pulse 142 Resp 15 B/P (MAP) 80/66 (71) 111/82 (92) 123/85 (98) Pulse Ox 98 07/29/18 07/29/18 07/29/18 07/29/18 07:15 07:17 07:20 07:25 Pulse 134 Resp 8 B/P (MAP) 116/86 (96) 110/79 (89) 110/80 (90) Pulse Ox 98 07/29/18 07/29/18 07/29/18 07/29/18 07:30 07:32 07:34 07:35 Pulse 130 Resp 12 B/P (MAP) 107/85 (92) 108/78 (88) 128/75 (92) Pulse Ox 97 07/29/18 07/29/18 07/29/18 07/29/18 07:40 07:45 07:47 07:50 Pulse 66 Resp 15 B/P (MAP) 118/68 (85) 103/69 (80) 111/69 (83) Pulse Ox 97 O2 Delivery Nasal Cannula O2 Flow Rate 2 07/29/18 07/29/18 07/29/18 07/29/18 07:55 08:00 08:05 08:10 Pulse 71 62 Resp 17 15 B/P (MAP) 109/71 (84) 103/67 (79) 110/66 (81) 113/67 (82) Pulse Ox 95 96 O2 Delivery Nasal Cannula Nasal Cannula O2 Flow Rate 2 2 07/29/18 07/29/18 07/29/18 07/29/18 08:15 08:30 08:45 09:00 Pulse 67 64 49 65 Resp 21 20 12 21 B/P (MAP) 108/73 (85) 117/69 (85) 112/96 (101) 116/70 (85) Pulse Ox 96 95 O2 Delivery Room Air (IDRIS HDEZ MD) Physical Exam General Appearance: The patient is alert. No acute distress. Eyes: Pupils are equal, round. No pallor, injection or icterus. ENT: Mucous membranes are moist. Normal oral mucosa. Posterior oropharynx is normal. Neck: Supple and non tender. Respiratory: Lungs are clear to auscultation. Cardiovascular: Tachycardia with a regular rhythm. No murmurs, gallops or rubs. Normal capillary refill. Trace edema. Gastrointestinal: Abdomen is soft, nontender. Nondistended. Normal active bowel sounds. No costovertebral angle tenderness with percussion. Neurological: Alert and oriented x3. No focal neurologic deficits Skin: Warm and dry. Musculoskeletal: Extremities are nontender. No tenderness with palpation of the chest wall. DIFFERENTIAL DIAGNOSIS: After history and physical exam, differential diagnosis was considered for tachycardia, appears to be SVT, with some chest pain and shortness of breath ([facility]) Medical Decision Making Data Points Result Diagram: 07/29/18 0727 07/29/18 0727 Laboratory Hematology Test 07/29/18 07:27 Red Blood Count 4.26 M/uL (4.00-5.60) Mean Corpuscular Volume 84.4 fL (80.0-96.0) Mean Corpuscular Hemoglobin 28.7 pg (26.0-33.0) Mean Corpuscular Hemoglobin Concent 34.0 g/dL (32.0-36.0) Red Cell Distribution Width 14.3 % (11.5-14.5) Mean Platelet Volume 8.2 fL (7.2-11.1) Neutrophils (%) (Auto) 76.3 % (39.4-72.5) Lymphocytes (%) (Auto) 12.9 % (17.6-49.6) Monocytes (%) (Auto) 6.5 % (4.1-12.4) Eosinophils (%) (Auto) 3.3 % (0.4-6.7) Basophils (%) (Auto) 1.0 % (0.3-1.4) Nucleated RBC Relative Count (auto) 0.0 /100WBC Neutrophils # (Auto) 4.1 K/uL (2.0-7.4) Lymphocytes # (Auto) 0.7 K/uL (1.3-3.6) Monocytes # (Auto) 0.4 K/uL (0.3-1.0) Eosinophils # (Auto) 0.2 K/uL (0.0-0.5) Basophils # (Auto) 0.1 K/uL (0.0-0.1) Nucleated RBC Absolute Count (auto) 0.00 K/uL Sodium Level 140 mmol/L (137-145) Potassium Level 3.1 mmol/L (3.5-5.0) Chloride Level 114 mmol/L (98-107) Carbon Dioxide Level 18 mmol/L (22-30) Blood Urea Nitrogen 34 mg/dl (9-21) Creatinine 1.90 mg/dl (0.66-1.25) Glomerular Filtration Rate Calc 34.7 Random Glucose 109 mg/dl (75-110) Calcium Level 9.2 mg/dl (8.4-10.2) Total Bilirubin 0.4 mg/dl (0.2-1.3) Aspartate Amino Transf (AST/SGOT) 79 U/L (0-35) Alanine Aminotransferase (ALT/SGPT) 85 U/L (0-56) Alkaline Phosphatase 73 U/L (0-126) Troponin I 0.034 ng/ml Total Protein 7.1 g/dl (6.3-8.2) Albumin 3.5 g/dl (3.5-5.0) Chemistry Test 07/29/18 07:27 White Blood Count 5.4 k/uL (4.5-11.0) Red Blood Count 4.26 M/uL (4.00-5.60) Hemoglobin 12.2 g/dL (14.0-18.0) Hematocrit 35.9 % (42.0-52.0) Mean Corpuscular Volume 84.4 fL (80.0-96.0) Mean Corpuscular Hemoglobin 28.7 pg (26.0-33.0) Mean Corpuscular Hemoglobin Concent 34.0 g/dL (32.0-36.0) Red Cell Distribution Width 14.3 % (11.5-14.5) Platelet Count 145 K/uL (150-450) Mean Platelet Volume 8.2 fL (7.2-11.1) Neutrophils (%) (Auto) 76.3 % (39.4-72.5) Lymphocytes (%) (Auto) 12.9 % (17.6-49.6) Monocytes (%) (Auto) 6.5 % (4.1-12.4) Eosinophils (%) (Auto) 3.3 % (0.4-6.7) Basophils (%) (Auto) 1.0 % (0.3-1.4) Nucleated RBC Relative Count (auto) 0.0 /100WBC Neutrophils # (Auto) 4.1 K/uL (2.0-7.4) Lymphocytes # (Auto) 0.7 K/uL (1.3-3.6) Monocytes # (Auto) 0.4 K/uL (0.3-1.0) Eosinophils # (Auto) 0.2 K/uL (0.0-0.5) Basophils # (Auto) 0.1 K/uL (0.0-0.1) Nucleated RBC Absolute Count (auto) 0.00 K/uL Glomerular Filtration Rate Calc 34.7 Calcium Level 9.2 mg/dl (8.4-10.2) Total Bilirubin 0.4 mg/dl (0.2-1.3) Aspartate Amino Transf (AST/SGOT) 79 U/L (0-35) Alanine Aminotransferase (ALT/SGPT) 85 U/L (0-56) Alkaline Phosphatase 73 U/L (0-126) Troponin I 0.034 ng/ml Total Protein 7.1 g/dl (6.3-8.2) Albumin 3.5 g/dl (3.5-5.0) (IDRIS HDEZ MD) ED Course/Re-evaluation ED Course IV was established, fluids running. Attempted adenosine to convert the SVT. Tried both a 6 mg IV push and the 12 mg IV push. The EKG and heart monitor showed some slight changes, but was not enough to convert. (ISRAEL DUNAWAY MD) ED Course I took this patient is a turnover from Dr. Dunaway. Patient is awake and alert and hemodynamically stable other than his supraventricular tachycardia. He has received a total of 18 mg of adenosine without breaking his SVT. I discussed the risks and benefits of procedural sedation in order to use electric cardioversion to return him to sinus rhythm. The patient was amenable to the procedure. He was given a bolus of propofol, and he was cardioverted at 200 J with success on the 1st treatment. The patient tolerated the procedure well. He was also given by mouth potassium for his hypokalemia. Will continue with his home medications, and follow-up with his primary physician. Procedure Procedure: Procedural sedation. A pre-sedation evaluation was completed on the patient at 0730. Patient is an appropriate candidate for procedural sedation. The risks of the sedation were discussed with the patient. A time out was completed. The patient was reevaluated immediately prior to initiation of sedation. The patient was sedated with propofol. The patient was monitored with continuous pulse oximetry and surety bond agent. There were no complications and no significant hypoxemia. I remained at the bedside for the sedation. The total time I spent in the procedural sedation was 30 minutes. Post sedation evaluation: Patient was al ert and cooperative, hemodynamically stable with appropriate respiratory status, temperature and pain control without ongoing nausea and vomiting. Procedure: Elective electrical cardioversion. The patient was electively electrically cardioverted for SVT. The patient was on a continuous equal opportunity assistant, with airway equipment at the bedside. The patient was on continuous pulse oximetry. The cardioversion was attempted with 200 J. The cardioversion was successful. The patient tolerated the procedure well with no complications. The procedure was performed by myself. Decision to Disposition Date: Jul 29, 2018 Decision to Disposition Time: 10:45 (IDRIS HDEZ MD) Depart Departure Latest Vital Signs Vital Signs Date Time Temp Pulse Resp B/P (MAP) Pulse Ox O2 Delivery O2 Flow Rate FiO2 07/29/18 09:00 65 21 116/70 (85) 07/29/18 08:45 95 Room Air 07/29/18 08:10 2 (IDRIS HDEZ MD) Impression: Primary Impression: SVT (supraventricular tachycardia) Additional Impression: Hypokalemia Condition: Improved Disposition: HOME OR SELF-CARE Referrals: YOLANDA MCKEON MD (PCP) Patient Instructions: Supraventricular Tachycardia (ED) Problem Qualifiers ISRAEL DUNAWAY MD Jul 29, 2018 06:48 IDRIS HDEZ MD Jul 29, 2018 10:46
[2018-07-29] MEDS ORDERED: NS(*) 0.9% 1000 ML BAG 1,000 ML IV ONE (06:50)
[2018-07-29] MEDS ORDERED: ADENOSINE(*)IV SOLN 3MG/ML ONE (06:50)
[2018-07-29] MEDS ORDERED: ADENOSINE(*)IV SOLN 3MG/ML IVP ONE ×2 (06:50)
[2018-07-29] MEDS ORDERED: PROPOFOL EMUL(*) 10MG/ML 20 ML 20 ML ONE (07:19)
[2018-07-29] MEDS ORDERED: PROPOFOL EMUL 10MG/ML 20 ML VL IV ONE (07:20)
[2018-07-29 07:43] LABS: PLATELET COUNT, AUTOMATED 145 K/uL (150-450)
--- NOTE | 2018-07-29 07:43 | EKG ---
FACILITY: [facility] - [place] PATIENT NAME: YARA MURPHY : [id number] MR: [id number] V: [id number] EXAM DATE: ORDERING PHYSICIAN: ISRAEL SCHRADER TECHNOLOGIST: SONU Santos Reason : POST CARDIOVERSION Blood Pressure : / mmHG Vent. Rate : 067 BPM Atrial Rate : 067 BPM P-R Int : 272 ms QRS Dur : 148 ms QT Int : 450 ms P-R-T Axes : 032 -53 101 degrees QTc Int : 475 ms Sinus rhythm with 1st degree AV block Left bundle branch block Abnormal ECG When compared with ECG of 29-JUL-2018 06:59, Sinus rhythm has replaced Wide QRS tachycardia Vent. rate has decreased BY 81 BPM Confirmed by LEONEL ANGELES ([id number] on 07/29/2018 8:01:07 AM Referred By: LEMUEL Confirmed By:LEONEL ANGELES
--- NOTE | 2018-07-29 07:43 | EKG ---
FACILITY: [facility] - [place] PATIENT NAME: YARA MURPHY : [id number] MR: [id number] V: [id number] EXAM DATE: ORDERING PHYSICIAN: ISRAEL SCHRADER TECHNOLOGIST: SONU Santos Reason : TACHY Blood Pressure : / mmHG Vent. Rate : 148 BPM Atrial Rate : 051 BPM P-R Int : 000 ms QRS Dur : 128 ms QT Int : 338 ms P-R-T Axes : 000 -46 121 degrees QTc Int : 530 ms Wide QRS tachycardia , likely PSVT or atrial flutter with LBBB When compared with ECG of 29-JUL-2018 06:54, Unchanged Confirmed by LEONEL ANGELES ([id number]) on 07/29/2018 8:00:21 AM Referred By: MACRINA Confirmed By:LEONEL ANGELES
--- NOTE | 2018-07-29 07:43 | EKG ---
FACILITY: [facility] PATIENT NAME: YARA MURPHY : [id number] MR: [id number] V: [id number] EXAM DATE: ORDERING PHYSICIAN: ISRAEL SCHRADER TECHNOLOGIST: SONU Santos Reason : TACHY Blood Pressure : / mmHG Vent. Rate : 147 BPM Atrial Rate : 138 BPM P-R Int : 000 ms QRS Dur : 128 ms QT Int : 348 ms P-R-T Axes : 000 -49 119 degrees QTc Int : 544 ms Wide QRS tachycardia with fusion complexes , likely PSVT or atrial flutter with LBBB When compared with ECG of 30-MAY-2018 22:50, Wide QRS tachycardia has replaced Sinus rhythm Vent. rate has increased BY 78 BPM Confirmed by LEONEL ANGELES ([id number]) on 07/29/2018 7:58:44 AM Referred By: MACRINA Confirmed By:LEONEL ANGELES
[2018-07-29] MEDS ORDERED: POTASSIUM CHL 20 MEQ TABCR PO ONE (08:15)
== END 2018-07-29 11:00 | disposition home or self-care (01) ==
LOC: ER 06:51
DX: I47.1 Supraventricular tachycardia (principal); E87.6 Hypokalemia
CPT/HCPCS: 84484; 85025; 92960; 93005; 94770; 96361; 96374; 99152; 99153; 99285; A9270; J0153; J2704; J7030; 82040; 82247; 82310; 82374; 82435; 82565; 82947; 84075; 84132; 84155; 84295; 84450; 84460; 84520

== ENCOUNTER → 2018-07-29 | Outpatient (CLI) | payer MEDICARE, MEDICAID ==
[2016-07-23 16:42] VITALS: BMI 19.1
[~2018-07-29] MED LIST changes: +POLY17PO11 PO; -POLY17PO21 PO
== END ==
LOC: AMB 11:00
PROVIDERS: ATTEND Nurse Practitioner
DX: Z76.89 Persons encountering health services in other specified circumstances (principal)
CPT/HCPCS: A0425; A0428

== ENCOUNTER → 2018-07-29 | Outpatient (CLI) | payer MEDICARE, MEDICAID ==
[2016-07-23 16:42] VITALS: BMI 19.1
== END ==
LOC: AMB 06:28
PROVIDERS: ATTEND Nurse Practitioner
DX: R07.9 Chest pain, unspecified (principal); I47.1 Supraventricular tachycardia; R53.1 Weakness
CPT/HCPCS: A0425; A0427

== ENCOUNTER → 2018-09-06 | Outpatient (CLI) | payer MEDICARE, MEDICAID ==
[~2018-09-06] MED LIST changes: +DUTA0.5C14 PO; +LINA145C PO; +METO-253 PO; +POLY17PO25 PO
[2018-09-13 13:47] VITALS: BMI 18.7
== END ==
LOC: AMB 14:27
PROVIDERS: ATTEND Nurse Practitioner
DX: R07.9 Chest pain, unspecified (principal)
CPT/HCPCS: A0425; A0428

== ENCOUNTER 2018-09-13 03:48 | Inpatient (IN) | payer MEDICARE, MEDICAID ==
[2018-09-13] VITALS (13 sets, daily range): BP systolic 103–156; BP diastolic 61–79; Ht 193 cm; Wt 70.0 kg
[~2018-09-13] VITALS: Ht 193 cm; Wt 70.0 kg
[~2018-09-13 03:48] MED LIST changes: -DUTA0.5C14 PO; -METO-253 PO; -POLY17PO25 PO
--- NOTE | 2018-09-13 03:56 | ER Report ---
History and Physical Time Seen By MD: 03:54 HPI/ROS CHIEF COMPLAINT: Rapid heart rate, history of SVT, chest discomfort HISTORY OF PRESENT ILLNESS: Patient is a 73-year-old male with a history of recurrent SVT here with complaints of chest discomfort, general malaise, history of dementia. Patient is a poor historian but he reports that he has not been feeling well recently and started overnight at an uncertain time with chest discomfort, rapid heart rate. Patient reports increased fatigue since onset of rapid heart rate, weakness. Patient reports that he may have had a subjective fever recently, possible upper respiratory symptoms. REVIEW OF SYSTEMS: Constitutional: Possible fever, no chills. Eyes: No discharge. ENT: No sore throat. Cardiovascular:+ chest discomfort, + rapid heart rate Respiratory: No cough, no shortness of breath. Gastrointestinal: No abdominal pain, no vomiting. Genitourinary: No hematuria. Musculoskeletal: No back pain. Skin: No rashes. Neurological: No headache. Allergies: Coded Allergies: atorvastatin calcium (Verified Allergy, Severe, HIVES, 09/06/18) Home Meds Active Scripts Potassium Chloride (KLOR-CON M20) 20 Meq Tab.er.prt, 20 MEQ PO QDAY, #30 TAB 0 Refills Prov:ISRAEL SCHRADER MD 12/20/16 Polyethylene Glycol 3350 (POLYETHYLENE GLYCOL 3350) 17 Gm Powd.pack, 17 GM PO QDAY, #30 PACK 1 Refill Hold if diarrhea Prov:BALJIT WHEATLEY MD 07/26/16 Docusate Sodium (DOCUSATE SODIUM) 100 Mg Capsule, 100 MG PO BID, #60 CAPSULE 1 Refill Hold if diarrhea Prov:BALJIT WHEATLEY MD 07/26/16 Hydrocodone Bit/Acetaminophen (HYDROCODON-ACETAMINOPHEN 5-325) 1 Each Tablet, 1 EACH PO Q6H PRN for PAIN, #30 TAB 0 Refills Prov:BALJIT WHEATLEY MD 07/26/16 Metoprolol Succinate (METOPROLOL SUCCINATE) 25 Mg Tab.er.24h, 1 TAB PO QDAY, #30 TAB 1 Refill Prov:BALJIT WHEATLEY MD 07/26/16 Hydrocortisone (ANUSOL-HC) 30 Gm Cream..g., 2 GM RC TID for rectal pain, #60 2 Refills Prov:MAINE ARRIOLA DO 05/30/16 Hydrocortisone Acetate (ANUSOL-HC) 25 Mg Supp.rect, 25 MG RC BID for hemorriods, #15 SUPP.RECT Prov:MAINE ARRIOLA DO 05/09/16 Reported Medications Linaclotide (LINZESS) 145 Mcg Capsule, 145 MCG PO, CAPSULE 09/06/18 Lisinopril (LISINOPRIL) 10 Mg Tablet, 10 MG PO QDAY, TAB 12/13/15 Acetaminophen (TYLENOL) 325 Mg Tablet, 650 MG PO Q6H PRN for PAIN OR FEVER 100 OR GREATER, TAB 10/14/15 Vitamin E Mixed (VITAMIN E) 400 Unit Capsule, 400 UNIT PO QHS, CAPSULE 10/14/15 Sodium Bicarbonate (SODIUM BICARBONATE) 650 Mg Tablet, 650 MG PO DAILY 10/14/15 Pyridoxine Hcl (VITAMIN B-6) 100 Mg Tablet, 100 MG PO DAILY 10/14/15 Topiramate (TROKENDI XR) 50 Mg Cap.er.24h, 150 MG PO QHS 10/14/15 Hydralazine Hcl (HYDRALAZINE HCL) 100 Mg Tablet, 100 MG PO TID, TAB 10/14/15 Aspirin (ASPIRIN EC) 81 Mg Tablet.dr, 81 MG PO QHS, TAB 10/14/15 Gluc/Keith-Msm#1/C/Jose Ramon/Demetri/Bor (OSTEO BI-FLEX CAPLET) 1 Each Tablet, 2 EACH PO DAILY 02/15/15 Donepezil Hcl (DONEPEZIL HCL) 10 Mg Tab.rapdis, 10 MG PO HS, TAB TAKE 1 TABLET BY MOUTH AT BEDTIME 04/27/14 Fluticasone Prop 50 Mcg Ns (FLONASE 50 MCG NS) 16 Gm [place].susp, 1 SPRAY NS BID 04/27/14 Cyanocobalamin (Vitamin B-12) (VITAMIN B-12) 5,000 Mcg Tab.subl, 5000 MCG PO QHS 04/27/14 Memantine Hcl (Namenda) 10 Mg Tablet, 10 MG PO BID 12/08/12 Amlodipine Besylate (Norvasc) 10 Mg Tablet, 10 MG PO DAILY, 0 Refills 12/15/10 Dutasteride (Avodart) 0.5 Mg Cap, 0.5 MG PO BID, 0 Refills 12/15/10 Hx Smoking: No Smoking Status: Never Smoker Exposure to Second Hand Smoke?: No Hx Substance Use Disorder: No Hx Alcohol Use: No Constitutional Vital Sign - Last 24 Hours 09/13/18 09/13/18 09/13/18 09/13/18 03:50 03:52 03:55 04:00 Temp 98.6 Pulse 170 Resp 16 B/P (MAP) 106/85 (92) 106/85 98/81 (87) Pulse Ox 96 O2 Delivery Nasal Cannula O2 Flow Rate 2.0 09/13/18 09/13/18 09/13/18 09/13/18 04:03 04:05 04:10 04:15 Pulse 153 B/P (MAP) 100/77 (85) 96/76 (83) 109/81 (90) 118/91 (100) 09/13/18 09/13/18 09/13/18 09/13/18 04:15 04:18 04:20 04:20 Pulse 147 ??? Resp 22 10 B/P (MAP) 118/91 (100) 113/87 (96) 113/87 (96) Pulse Ox 98 99 09/13/18 09/13/18 09/13/18 09/13/18 04:25 04:25 04:30 04:30 Pulse 139 Resp 20 B/P (MAP) 107/82 (90) 107/82 (90) 110/80 (90) 110/80 (90) Pulse Ox 97 09/13/18 09/13/18 09/13/18 09/13/18 04:35 04:35 04:40 04:40 Pulse 118 60 Resp 19 19 B/P (MAP) 108/74 (85) 108/74 (85) 97/66 (76) 97/66 (76) Pulse Ox 97 98 09/13/18 09/13/18 09/13/18 09/13/18 04:45 04:45 04:48 04:50 Pulse 60 62 Resp 18 9 B/P (MAP) 97/64 (75) 97/64 (75) 109/63 (78) Pulse Ox 97 97 09/13/18 09/13/18 09/13/18 09/13/18 04:50 04:55 04:55 05:00 Pulse 56 61 56 Resp 18 24 13 B/P (MAP) 109/63 (78) 100/60 (73) 100/60 (73) 103/61 (75) Pulse Ox 97 97 97 18 18 09/13/18 09/13/18 05:00 05:05 05:05 05:10 Pulse 56 57 Resp 41 16 B/P (MAP) 103/61 (75) 112/63 (79) 112/63 (79) 114/62 (79) Pulse Ox 98 93 09/13/18 09/13/18 09/13/18 09/13/18 05:10 05:15 05:15 05:18 Pulse 56 Resp 9 12 B/P (MAP) 114/62 (79) 112/61 (78) 112/61 (78) Pulse Ox 97 96 09/13/18 09/13/18 09/13/18 09/13/18 05:20 05:20 05:25 05:25 Pulse ??? Resp 15 B/P (MAP) 109/93 (98) 109/93 (98) 116/62 (80) 116/62 (80) Pulse Ox 90 09/13/18 09/13/18 09/13/18 09/13/18 05:30 05:30 05:35 05:35 Pulse 120 131 Resp 18 17 B/P (MAP) 95/72 (80) 95/72 (80) 95/74 (81) 95/74 (81) Pulse Ox 94 96 09/13/18 09/13/18 09/13/18 09/13/18 05:40 05:40 05:45 05:50 Pulse 130 ??? 135 Resp 24 17 11 B/P (MAP) 102/75 (84) 102/75 (84) 96/75 (82) 94/70 (78) Pulse Ox 97 99 96 09/13/18 09/13/18 09/13/18 09/13/18 05:55 06:00 06:00 06:05 Pulse 57 68 68 65 Resp 8 11 11 B/P (MAP) 103/58 (73) ???/??? (1665) Pulse Ox 94 95 95 09/13/18 09/13/18 09/13/18 09/13/18 06:10 06:10 06:15 06:20 Pulse 58 Resp 7 B/P (MAP) 93/65 (74) 93/65 (74) 102/69 (80) 100/62 (75) Pulse Ox 98 09/13/18 09/13/18 09/13/18 09/13/18 06:25 06:30 06:35 06:40 Pulse 54 Resp 29 B/P (MAP) 97/66 (76) 101/61 (74) 95/65 (75) 107/59 (75) Pulse Ox 82 Physical Exam General Appearance: The patient is alert, has no immediate need for airway protection and no signs of toxicity. Mild distress Eyes: Pupils equal and round no pallor or injection. ENT, Mouth: Mucous membranes are moist. Respiratory: There are no retractions, lungs are clear to auscultation. Cardiovascular: + rapid regular heart rate Gastrointestinal: Abdomen is soft and non tender, no masses, bowel sounds normal. Neurological: Mild confusion, fatigued Skin: Warm and dry, no rashes. Musculoskeletal: Neck is supple non tender. Extremities are nontender, nonswollen and have full range of motion. DIFFERENTIAL DIAGNOSIS: After history and physical exam differential diagnosis was considered for SVT, ventricular tachycardia, sinus tachycardia, dehydration, upper respiratory infection, viral syndrome Medical Decision Making Data Points Result Diagram: 09/13/18 0357 09/13/18 0357 Laboratory Hematology Test 09/13/18 03:57 Red Blood Count 5.13 M/uL (4.00-5.60) Mean Corpuscular Volume 84.8 fL (80.0-96.0) Mean Corpuscular Hemoglobin 28.1 pg (26.0-33.0) Mean Corpuscular Hemoglobin Concent 33.1 g/dL (32.0-36.0) Red Cell Distribution Width 14.0 % (11.5-14.5) Mean Platelet Volume 8.6 fL (7.2-11.1) Neutrophils (%) (Auto) 64.3 % (39.4-72.5) Lymphocytes (%) (Auto) 20.1 % (17.6-49.6) Monocytes (%) (Auto) 11.0 % (4.1-12.4) Eosinophils (%) (Auto) 3.2 % (0.4-6.7) Basophils (%) (Auto) 1.4 % (0.3-1.4) Nucleated RBC Relative Count (auto) 0.1 /100WBC Neutrophils # (Auto) 3.3 K/uL (2.0-7.4) Lymphocytes # (Auto) 1.0 K/uL (1.3-3.6) Monocytes # (Auto) 0.6 K/uL (0.3-1.0) Eosinophils # (Auto) 0.2 K/uL (0.0-0.5) Basophils # (Auto) 0.1 K/uL (0.0-0.1) Nucleated RBC Absolute Count (auto) 0.01 K/uL Sodium Level 141 mmol/L (137-145) Potassium Level 3.4 mmol/L (3.5-5.0) Chloride Level 109 mmol/L (98-107) Carbon Dioxide Level 20 mmol/L (22-30) Blood Urea Nitrogen 32 mg/dl (9-21) Creatinine 2.30 mg/dl (0.66-1.25) Glomerular Filtration Rate Calc 27.9 Random Glucose 109 mg/dl (75-110) Calcium Level 9.9 mg/dl (8.4-10.2) Total Bilirubin 0.4 mg/dl (0.2-1.3) Aspartate Amino Transf (AST/SGOT) 52 U/L (0-35) Alanine Aminotransferase (ALT/SGPT) 64 U/L (0-56) Alkaline Phosphatase 78 U/L (0-126) Troponin I 0.030 ng/ml Total Protein 8.9 g/dl (6.3-8.2) Albumin 4.3 g/dl (3.5-5.0) Chemistry Test 09/13/18 03:57 White Blood Count 5.1 k/uL (4.5-11.0) Red Blood Count 5.13 M/uL (4.00-5.60) Hemoglobin 14.4 g/dL (14.0-18.0) Hematocrit 43.5 % (42.0-52.0) Mean Corpuscular Volume 84.8 fL (80.0-96.0) Mean Corpuscular Hemoglobin 28.1 pg (26.0-33.0) Mean Corpuscular Hemoglobin Concent 33.1 g/dL (32.0-36.0) Red Cell Distribution Width 14.0 % (11.5-14.5) Platelet Count 184 K/uL (150-450) Mean Platelet Volume 8.6 fL (7.2-11.1) Neutrophils (%) (Auto) 64.3 % (39.4-72.5) Lymphocytes (%) (Auto) 20.1 % (17.6-49.6) Monocytes (%) (Auto) 11.0 % (4.1-12.4) Eosinophils (%) (Auto) 3.2 % (0.4-6.7) Basophils (%) (Auto) 1.4 % (0.3-1.4) Nucleated RBC Relative Count (auto) 0.1 /100WBC Neutrophils # (Auto) 3.3 K/uL (2.0-7.4) Lymphocytes # (Auto) 1.0 K/uL (1.3-3.6) Monocytes # (Auto) 0.6 K/uL (0.3-1.0) Eosinophils # (Auto) 0.2 K/uL (0.0-0.5) Basophils # (Auto) 0.1 K/uL (0.0-0.1) Nucleated RBC Absolute Count (auto) 0.01 K/uL Glomerular Filtration Rate Calc 27.9 Calcium Level 9.9 mg/dl (8.4-10.2) Total Bilirubin 0.4 mg/dl (0.2-1.3) Aspartate Amino Transf (AST/SGOT) 52 U/L (0-35) Alanine Aminotransferase (ALT/SGPT) 64 U/L (0-56) Alkaline Phosphatase 78 U/L (0-126) Troponin I 0.030 ng/ml Total Protein 8.9 g/dl (6.3-8.2) Albumin 4.3 g/dl (3.5-5.0) EKG/Imaging EKG Interpretation Please see official EKG interpretation Monitor Interpretation: Supraventricular Tach Imaging Location: [facility] Patient: Randy Gayle : 1945 Visit/Account:[id number] Date of Sevice: 09/13/2018 CHEST SINGLE AP Additional pertinent History: Chest pain COMPARISON STUDIES: 05/30/2018 FINDINGS: Support lines and catheters: EKG wire leads Lungs and Pleura: Lung gastelum well expanded with no infiltrates or consolidations. No parenchymal mass lesions are seen. There are no effusions Heart and vasculature: Negative. Silke and Mediastinum: Negative. Bones and Chest wall: Negative. Upper Abdomen: Negative. IMPRESSION: 1. Normal chest ED Course/Re-evaluation ED Course Patient is a 73-year-old male with a history of recurrent SVT here with a narrow, rapid heart rate. IV access was obtained, patient was initially given adenosine 12 mg without conversion. Patient was then given IV etomidate 8 mg and was initially delivered 100 J shock, 200 and a subsequent 200 J shock without successful cardioversion. Patient was then given verapamil 5 mg with successful conversion to sinus rhythm as confirmed on 12-lead EKG. Patient then converted back into SVT was given a subsequent dose of 5 mg of verapamil and started on an IV transfusion of diltiazem. I discussed the patient with Dr. Roma Wheatley who accepted the patient to the hospitalist service. Patient was a normal sinus rhyt at time of admission. Procedure Patient was initially given adenosine 12 mg intravenously for attempt to chemical cardioversion. Chemical cardioversion was unsuccessful. Patient was administered etomidate 8 mg IV with suction, backup oxygen, BVM, backup airway devices present. Patient had given verbal consent for procedure and voiced understanding that he would be undergoing electrical synchronized cardioversion. Patient was initially administered 100 J via synchronized cardioversion which was unsuccessful, then the patient was administered 2 subsequent doses of 200 J via synchronized cardioversion without successful conversion to normal sinus rhythm. Patient remained hemodynamically stable throughout course. Patient tolerated procedure well. Decision to Disposition Date: Sep 13, 2018 Decision to Disposition Time: 06:34 Depart Departure Latest Vital Signs Vital Signs Date Time Temp Pulse Resp B/P (MAP) Pulse Ox O2 Delivery O2 Flow Rate FiO2 09/13/18 06:40 107/59 (75) 09/13/18 06:30 54 29 82 09/13/18 03:55 98.6 Nasal Cannula 09/13/18 03:50 2.0 Impression: Primary Impression: PSVT (paroxysmal supraventricular tachycardia) Additional Impressions: Weakness generalized Chest discomfort Condition: Improved Disposition: Admitted from ER Referrals: YOLANDA MCKEON MD (PCP) Problem Qualifiers CARL RESENDIZ DO Sep 13, 2018 03:56
[2018-09-13] MEDS ORDERED: NS(*) 0.9% 1000 ML BAG 1,000 ML IV ONE (03:58)
[2018-09-13] MEDS ORDERED: ADENOSINE(*)IV SOLN 3MG/ML IVP ONE (04:00)
[2018-09-13] MEDS ORDERED: ADENOSINE(*)IV SOLN 3MG/ML ONE (04:01)
[2018-09-13] MEDS ORDERED: ETOMIDATE 20 MG/10 ML VIAL IVP ONE (04:05)
[2018-09-13] MEDS ORDERED: ETOMIDATE 20 MG/10 ML VIAL ONE (04:06)
[2018-09-13] MEDS ORDERED: VERAPAMIL HCL 10 MG/4 ML VIAL IVP ONE ×2 (04:30→05:35)
[2018-09-13] MEDS ORDERED: VERAPAMIL HCL 10 MG/4 ML VIAL ONE (04:32)
[2018-09-13 04:33] LABS: PLATELET COUNT, AUTOMATED 184 K/uL (150-450)
--- NOTE | 2018-09-13 05:26 | RADIOLOGY IMAGING REPORT ---
FACILITY: [facility] - [place] PATIENT NAME: Randy Gayle : 1945 MR: [id number] V: [id number] EXAM DATE: ORDERING PHYSICIAN: CARL RESENDIZ TECHNOLOGIST: Location: [facility] [place] Patient: Randy Gayle : 1945 Visit/Account:[id number] Date of Sevice: 09/13/2018 CHEST SINGLE AP Additional pertinent History: Chest pain COMPARISON STUDIES: 05/30/2018 FINDINGS: Support lines and catheters: EKG wire leads Lungs and Pleura: Lung gastelum well expanded with no infiltrates or consolidations. No parenchymal ma ss lesions are seen. There are no effusions Heart and vasculature: Negative. Silke and Mediastinum: Negative. Bones and Chest wall: Negative. Upper Abdomen: Negative. IMPRESSION: 1. Normal chest Report Dictated By: Noe Hernandez MD at 09/13/2018 5:17 AM Report E-Signed By: Noe Hernandez MD at 09/13/2018 5:21 AM WSN:[id number]
[2018-09-13] MEDS ORDERED: DILTIAZEM HCL* 100 MG ADDVIAL 100 MG in NS(*) 0.9% 100 ML ADDVANT BAG 100 ML IV SCH (06:00)
--- NOTE | 2018-09-13 06:02 | EKG ---
FACILITY: [facility] - [place], [place] PATIENT NAME: YARA MURPHY : [id number] MR: [id number] V: [id number] EXAM DATE: ORDERING PHYSICIAN: CARL RESENDIZ TECHNOLOGIST: ARLYN Test Reason : SVT Blood Pressure : / mmHG Vent. Rate : 169 BPM Atrial Rate : 087 BPM P-R Int : 000 ms QRS Dur : 124 ms QT Int : 310 ms P-R-T Axes : 000 -62 113 degrees QTc Int : 519 ms Wide QRS tachycardia Left axis deviation Diffuse ST abnormalities Abnormal ECG Confirmed by BALJIT DOWNING ([id number]) on 09/13/2018 9:45:29 AM Referred By: Confirmed By:BALJIT DOWNING
--- NOTE | 2018-09-13 06:06 | EKG ---
FACILITY: [facility] PATIENT NAME: YARA MURPHY : [id number] MR: [id number] V: [id number] EXAM DATE: ORDERING PHYSICIAN: CARL RESENDIZ TECHNOLOGIST: ARLYN Test Reason : SVT Blood Pressure : / mmHG Vent. Rate : 147 BPM Atrial Rate : 048 BPM P-R Int : 000 ms QRS Dur : 118 ms QT Int : 332 ms P-R-T Axes : 000 -63 104 degrees QTc Int : 519 ms Wide QRS tachycardia Left axis Diffuse ST-T abnormalities Abnormal ECG Confirmed by BALJIT DOWNING ([id number]) on 09/13/2018 9:46:44 AM Referred By: Confirmed By:BALJIT DOWNING
--- NOTE | 2018-09-13 06:06 | EKG ---
FACILITY: [facility] [place] PATIENT NAME: YARA MURPHY : [id number] MR: [id number] V: [id number] EXAM DATE: ORDERING PHYSICIAN: CARL RESENDIZ TECHNOLOGIST: ARLYN Test Reason : SVT Blood Pressure : / mmHG Vent. Rate : 059 BPM Atrial Rate : 059 BPM P-R Int : 184 ms QRS Dur : 140 ms QT Int : 446 ms P-R-T Axes : 000 -56 091 degrees QTc Int : 441 ms Sinus bradycardia Nonspecific interventricular conduction delay, probable incomplete LBBB Diffuse ST abnormalities Probable LVH Abnormal ECG Confirmed by BALJIT DOWNING ([id number]) on 09/13/2018 9:48:32 AM Referred By: Confirmed By:BALJIT DOWNING
[2018-09-13] MEDS ORDERED: NS(*) 0.9% 100 ML BAG 100 ML ONE (06:31)
[2018-09-13] MEDS ORDERED: DILTIAZEM 5 MG/ML 5ML IVPUSH ONE ×3 (06:31→06:34)
[2018-09-13] MEDS ORDERED: FLUSH 10 ML SYR IVP PRN (09:15)
[2018-09-13] MEDS ORDERED: DILTIAZEM HCL* 100 MG ADDVIAL 100 MG in NS(*) 0.9% 100 ML ADDVANT BAG 100 ML IV ONE (09:20)
--- NOTE | 2018-09-13 09:44 | History & Physical ---
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 He is awake and alert, but oriented only to person. The only information he is able to offer is that "I don't feel right". He is unable to explain any further other than "I feel weak". When given questions with yes/no answers, he denied CP/SOB/cough/N/V/focal weakness/fevers/chills/diarrhea/urinary complaints. He was evaluated in the ER and was noted to be in wide complex tachycardia, which has been his presentation for his SVT on numerous occasions in the past. His labs were remarkable for his chronic renal failure, mild elevation of troponin/AST/ALT, and mild hypokalemia. Attempts were made to cardiovert with adenosine and electrocardioversion, but were unsuccessful. He was then given IV diltiazem and verapamil. He did convert to a sinus bradycardia. He was recommended for admission. History Problems: (1) MICHAEL (obstructive sleep apnea) Status: Chronic (2) Aortic insufficiency Status: Chronic (3) Anxiety Status: Chronic (4) Benign hypertension Status: Chronic (5) Essential tremor Status: Chronic (6) Hemorrhoids Status: Chronic (7) Chronic kidney disease, stage IV (severe) Status: Chronic (8) Cognitive impairment Status: Chronic (9) Pulmonary hypertension Status: Chronic (10) Dementia Status: Chronic (11) Positional vertigo Status: Resolved (12) Constipation Status: Chronic Home Meds Active Scripts Potassium Chloride (KLOR-CON M20) 20 Meq Tab.er.prt, 20 MEQ PO QDAY, #30 TAB 0 Refills Prov:ISRAEL SCHRADER MD 12/20/16 Polyethylene Glycol 3350 (POLYETHYLENE GLYCOL 3350) 17 Gm Powd.pack, 17 GM PO QDAY, #30 PACK 1 Refill Hold if diarrhea Prov:BALJIT DOWNING MD 07/26/16 Docusate Sodium (DOCUSATE SODIUM) 100 Mg Capsule, 100 MG PO BID, #60 CAPSULE 1 Refill Hold if diarrhea Prov:BALJIT DOWNING MD 07/26/16 Hydrocodone Bit/Acetaminophen (HYDROCODON-ACETAMINOPHEN 5-325) 1 Each Tablet, 1 EACH PO Q6H PRN for PAIN, #30 TAB 0 Refills Prov:BALJIT DOWNING MD 07/26/16 Metoprolol Succinate (METOPROLOL SUCCINATE) 25 Mg Tab.er.24h, 1 TAB PO QDAY, #30 TAB 1 Refill Prov:BALJIT DOWNING MD 07/26/16 Hydrocortisone (ANUSOL-HC) 30 Gm Cream..g., 2 GM RC TID for rectal pain, #60 2 Refills Prov:MAINE ARRIOLA DO 05/30/16 Hydrocortisone Acetate (ANUSOL-HC) 25 Mg Supp.rect, 25 MG RC BID for hemorriods, #15 SUPP.RECT Prov:MAINE ARRIOLA DO 05/09/16 Reported Medications Linaclotide (LINZESS) 145 Mcg Capsule, 145 MCG PO, CAPSULE 09/06/18 Lisinopril (LISINOPRIL) 10 Mg Tablet, 10 MG PO QDAY, TAB 12/13/15 Acetaminophen (TYLENOL) 325 Mg Tablet, 650 MG PO Q6H PRN for PAIN OR FEVER 100 OR GREATER, TAB 10/14/15 Vitamin E Mixed (VITAMIN E) 400 Unit Capsule, 400 UNIT PO QHS, CAPSULE 10/14/15 Sodium Bicarbonate (SODIUM BICARBONATE) 650 Mg Tablet, 650 MG PO DAILY 10/14/15 Pyridoxine Hcl (VITAMIN B-6) 100 Mg Tablet, 100 MG PO DAILY 10/14/15 Topiramate (TROKENDI XR) 50 Mg Cap.er.24h, 150 MG PO QHS 10/14/15 Hydralazine Hcl (HYDRALAZINE HCL) 100 Mg Tablet, 100 MG PO TID, TAB 10/14/15 Aspirin (ASPIRIN EC) 81 Mg Tablet.dr, 81 MG PO QHS, TAB 10/14/15 Gluc/Keith-Msm#1/C/Jose Ramon/Demetri/Bor (OSTEO BI-FLEX CAPLET) 1 Each Tablet, 2 EACH PO DAILY 02/15/15 Donepezil Hcl (DONEPEZIL HCL) 10 Mg Tab.rapdis, 10 MG PO HS, TAB TAKE 1 TABLET BY MOUTH AT BEDTIME 04/27/14 Fluticasone Prop 50 Mcg Ns (FLONASE 50 MCG NS) 16 Gm Elliott.susp, 1 SPRAY NS BID 04/27/14 Cyanocobalamin (Vitamin B-12) (VITAMIN B-12) 5,000 Mcg Tab.subl, 5000 MCG PO QHS 04/27/14 Memantine Hcl (Namenda) 10 Mg Tablet, 10 MG PO BID 12/08/12 Amlodipine Besylate (Norvasc) 10 Mg Tablet, 10 MG PO DAILY, 0 Refills 12/15/10 Dutasteride (Avodart) 0.5 Mg Cap, 0.5 MG PO BID, 0 Refills 12/15/10 Allergies: Coded Allergies: atorvastatin calcium (Verified Allergy, Severe, HIVES, 09/06/18) Other Social/Family Hx Unable to obtain any family history. He reports having nurses and "lady friends" help him at home. Hx Smoking: No Smoking Status: Never Smoker Exposure to Second Hand Smoke?: No Caffeine Intake: Coffee, Tea Caffeine/Cups Per Day: OCCASIONAL Hx Alcohol Use: No Hx Substance Use Disorder: No Review of Systems Other Due to chronic cognitive deficits unable to get a reliable review of systems, but he denied almost all complaints other than the generalized weakness. Exam Vital Signs Vital Signs Date Time Temp Pulse Resp B/P (MAP) Pulse Ox O2 Delivery O2 Flow Rate FiO2 09/13/18 07:48 98.0 51 16 120/63 (82) 98 Nasal Cannula 2.0 General Appearance: Alert, Awake Neuro: Other (no focal deficits/some mild generalized weakness in all muscle groups/DTR diminished throughout, but equal) Eyes: PERRLA ENT: Oropharynx Clear Neck: No Masses Cardiovascular: No Edema, Other (Regular slightly bradycardic with systolic/d iastolic murmurs) Respiratory: Clear to Auscultation Chest: No Tenderness GI: Abd Soft and Non-Tender (BS present) : No CVA Tenderness Lymph: No Adenopathy Extremities: Warm, Perfused Integumentary: Skin Intact without Lesion / Mass Psych: Other (oriented only to person) Medical Decision Making Data Points Result Diagram: 09/13/18 0357 09/13/18 0357 Item Value Date Time Sodium Level 152 mmol/L H 07/23/16 0757 Potassium Level 3.2 mmol/L L 07/23/16 075 Chloride Level 114 mmol/L H 07/23/16 0757 Carbon Dioxide Level 19 mmol/L L 07/23/16 075 Blood Urea Nitrogen 33 mg/dl H 07/23/16 0757 Creatinine 2.50 mg/dl H 07/23/16 0757 Glomerular Filtration Rate Calc 25.4 07/23/16 0757 Random Glucose 82 mg/dl 07/23/16 0757 Calcium Level 10.5 mg/dl H 07/23/16 0757 Total Bilirubin 0.7 mg/dl 07/23/16 0757 Aspartate Amino Transf (AST/SGOT) 27 U/L 07/23/16 0757 Alanine Aminotransferase (ALT/SGPT) 55 U/L 07/23/16 0757 Alkaline Phosphatase 101 U/L 07/23/16 0757 Total Protein 8.7 gm/dl H 07/23/16 0757 Albumin 4.6 g/dl 07/23/16 0757 White Blood Count 6.5 k/uL 07/23/16 0757 Hemoglobin 13.3 g/dL L 07/23/16 0757 Hematocrit 39.1 % L 07/23/16 0757 Platelet Count 170 K/uL 07/23/16 0757 Urine Color Yellow 07/24/16 1635 Urine Clarity Clear 07/24/16 1635 Urine pH 6.0 pH 07/24/16 1635 Urine Specific [place] 1.019 07/24/16 1635 Urine Protein 30 mg/dL 07/24/16 1635 Urine Glucose (UA) Negative mg/dL 07/24/16 1635 Urine Ketones Negative mg/dL 07/24/16 1635 Urine Blood Negative 07/24/16 1635 Urine Nitrite Negative 07/24/16 1635 Urine Bilirubin Negative 07/24/16 1635 Urine Urobilinogen Negative mg/dL 07/24/16 1635 Urine RBC None /HPF 07/24/16 1635 Urine Leukocyte Esterase Negative 07/24/16 1635 Urine WBC <1 /HPF 07/24/16 1635 Urine Squamous Epithelial Cells Few /LPF 07/24/16 1635 Urine Bacteria Negative /HPF 07/24/16 1635 Urine Hyaline Casts Few /LPF 07/24/16 1635 Urine Granular Casts Few /LPF H 07/24/16 1635 Urine Mucus Few /HPF 07/24/16 1635 Stool Occult Blood (IFOB) Negative 07/23/16 0338 Albumin 4.3 g/dl 09/13/18 0357 Total Protein 8.9 g/dl H 09/13/18 0357 Troponin I 0.030 ng/ml 12/29/18 0357 Alkaline Phosphatase 78 U/L 09/13/18356 Alanine Aminotransferase (ALT/SGPT) 64 U/L H 09/13/18356 Aspartate Amino Transf (AST/SGOT) 52 U/L H 09/13/18356 Total Bilirubin 0.4 mg/dl 09/13/18356 Calcium Level 9.9 mg/dl 09/13/18356 EKG / Imaging Imaging PATIENT NAME: Randy Gayle : 1945 MR: [id number] V: [id number] EXAM DATE: ORDERING PHYSICIAN: CARL RESENDIZ TECHNOLOG[place] [facility] [place] : 1945 Visit/Account:[id number] Date of Sevice: 09/13/2018 CHEST SINGLE AP Additional pertinent History: Chest pain COMPARISON STUDIES: 05/30/2018 FINDINGS: Support lines and catheters: EKG wire leads Lungs and Pleura: Lung gastelum well expanded with no infiltrates or conso lidations. No parenchymal mass lesions are seen. There are no effusions Heart and vasculature: Negative. Silke and Mediastinum: Negative. Bones and Chest wall: Negative. Upper Abdomen: Negative. IMPRESSION: 1. Normal chest Report Dictated By: Noe Hernandez MD at 09/13/2018 5:17 AM Report E-Signed By: Noe Hernandez MD at 09/13/2018 5:21 AM [id number] Assessment and Plan Problems: (1) SVT (supraventricular tachycardia) Status: Acute Assessment & Plan: Recurrent and quite refractory. I would suspect he most likely has an accessory pathway. He has been in the ER frequently with it. Bethany ble to ascertain if he takes his medications as prescribed. Will admit for further monitoring. Will continue his metoprolol therapy. Will correct the hypokalemia. Will try to get records regarding previous cardiology evaluation/recommendations. Will repeat echocardiogram (last one on record is 2013). Will also have Social Work see. (2) Hypokalemia Status: Acute Assessment & Plan: Will replace with IV fluids. Watch labs. (3) Weakness generalized Status: Acute Assessment & Plan: Probably due to the SVT. Will watch closely. May need PT/OT to see. (4) Cognitive impairment Status: Chronic Assessment & Plan: Chronic. Fairly severe. 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 Will see what services he has at home. I would suspect it would be extremely difficult for him to live at home without significant help. (5) Chronic kidney disease, stage IV (severe) Status: Chronic Assessment & Plan: His creatinine is 2.3 at time of admission, which is close to his baseline. According to records, he had a hypernephroma treated with embolization many years ago. He has seen Dr. Rivera in the past. Watch labs. Copies to: YOLANDA MCKEON MD ; Venous Thromboembolism Antithrombotics Is Pt On Any Antithrombotics?: No Prophylaxis Tx Contraindicated Pharmacological Contraindicati: Renal Impairment Exam Sepsis Risk: No Definite Risk BALJIT DOWNING MD Sep 13, 2018 09:44
[2018-09-13] MEDS: KCL/NS* 20 MEQ/1000 ML PREMIX 1,000 ML IV SCH (09:48)
[2018-09-13] MEDS: METOPROLOL SUCC XL 25 MG TABCR PO SCH (10:34)
--- NOTE | 2018-09-13 14:05 | Medical Nutrition Therapy ---
Nutrition Anthropometrics Height (Inches): 76.00 Height (Calculated Centimeters: 193.809029 Weight (Pounds): 154 Weight (Calculated Kilograms): 69.967 BMI: 18.8 Mau Nutrition Score: Mau Nutrition Risk Score: Dietary Referral Nutrition Risk Factors: Unplanned Loss >10lbs Nutrition Risk Comment: Physical Findings Physical Appearance: Underweight BMI<19 Skin Appearance Skin Appearance: Edema Edema Location Modifier: Edema Location: Type of Edema: Degree of Edema: Gastrointestinal Symptoms GI Symtoms: Tube Present: Bowel Sounds: Recent Bowel Pattern: Stool Characteristics: Nutrition/Food History No Significant Nutr. HX Nutritional Diagnosis Nutritional Risk Acuity 2: Chronic Renal Failure, %IBW 75-80% Nutritional Risk Acuity 3: Fair Appetite Past Medical History: stage 4 CKD, Cognitive impairment, MICHAEL, Pulmonary HTN, Angina Nutritional Acuity: 2-Moderate Nutrition Diagnosis: Under-weight Nutrition Etiology: Inadeq. Food/Cathi Intake, Psychological Issues Nutrition Problem/Etiology/Sym: Underweight related to inadequate energy intake AEB BMI of 16.8 and reports of estimated intake of food less than estimated needs. Energy Requirement: 2620 (Mccloud-St Jeor: IBW BW X 1.5) Protein Requirement: 73 (IBW Kg X 0.8) Fluid Requirement: 2620 Diet Type: Diet as Tolerated NENA/REG Nutrition Intervention: Cont diet as ordered Nutrition Monitoring & Eval Nutrition Goals: Eat 75-100% Meal RD Patient Assessment Time: [address] Assessment Type: RD Assessment Patient Nutrition Acuity: 2-Moderate Follow Up Date: Sep 15, 2018 Nutritional Comment: 09/13/18 Pt admitted for SVT, Hypokalemia,and weakness. Pt underwt with BMI of 18.8. Alb 4.3, High AST/ALT, High Creat/BUN, GFR 27.9. Receiving NENA and consumed 75% of first meal in facility. Follow intake, labs, etc. -KARINA TORO Sep 13, 2018 14:05
[2018-09-14] MEDS: KCL/NS* 20 MEQ/1000 ML PREMIX 1,000 ML IV SCH ×2 (01:48→20:23)
[2018-09-14 03:19] VITALS: BP 163/79
[2018-09-14 06:00] LABS: PLATELET COUNT, AUTOMATED 133 K/uL (150-450)
[2018-09-14 07:40] VITALS: BP 159/83
--- NOTE | 2018-09-14 09:21 | Hospitalist Progress Note ---
Subjective Progress Notes Subjective This patient was admitted for tachycardia and cardioversion. He had no acute events overnight. Patient Complains of: Cardiovascular: No: Chest Pain Respiratory: No: Shortness of Breath Physical Exam Vital Signs Date Time Temp Pulse Resp B/P (MAP) Pulse Ox O2 Delivery O2 Flow Rate FiO2 09/14/18 07:40 98.3 92 18 159/83 (108) Room Air 09/14/18 07:40 93 09/13/18 16:43 0.5 Intake and Output 09/14/18 07:00 Intake Total 1851 ml Output Total 550 ml Balance 1301 ml Intake Oral 870 ml IV Total 981 ml Output Urine Total 550 ml # Voids 2 Cardiovascular: Regular Rate and Rhythm Respiratory: Clear to Auscultation Result Diagram: 09/14/1851909/14/18 05 Monitor Interpretation: Supraventricular Tach Assessment and Plan Problems: (1) SVT (supraventricular tachycardia) Status: Acute Assessment & Plan: He has had multiple episodes of this in the past. He failed to attempts at electrical cardioversion in the emergency department, but spontaneously converted a short while later. An echocardiogram is pending. (2) Hypokalemia Status: Acute Assessment & Plan: Resolved with supplementation. 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 A TCN consult has been ordered. (4) Chronic kidney disease, stage IV (severe) Status: Chronic Assessment & Plan: His creatinine is 2.3 at time of admission, which is close to his baseline. According to records, he had a hypernephroma treated with embolization many years ago. Exam Sepsis Risk: No Definite Risk YOLANDA RAMIREZ DO Sep 14, 2018 09:21
[2018-09-14] MEDS: METOPROLOL SUCC XL 25 MG TABCR PO SCH (09:22)
[2018-09-14] MEDS ORDERED: DUTA0.5C14 PO (11:12)
[2018-09-14] MEDS ORDERED: SODI650T7 PO (11:14)
[2018-09-14 15:30] VITALS: BP 163/93
[2018-09-14 19:26] VITALS: BP 164/81
[2018-09-14] MEDS: DOCUSATE SODIUM 100 MG CAP PO SCH (20:23)
[2018-09-15 07:01] VITALS: BP 166/86
[2018-09-15] MEDS ORDERED: METOPROLOL TART 50 MG TAB PO SCH (09:00)
[2018-09-15] MEDS ORDERED: POLYETHYLENE GLYCOL 17 GM PKT PO SCH (09:00)
[2018-09-15] MEDS: DOCUSATE SODIUM 100 MG CAP PO SCH (09:00)
[2018-09-15] MEDS ORDERED: INFLUENZA VIRUS VAC 0.5ML SYR IM ONLY ONE (09:15)
--- NOTE | 2018-09-15 09:36 | Hospitalist Depart ---
Discharge Summary Reason for Hosp/Final Diag: (1) SVT (supraventricular tachycardia) Status: Acute Hospital Course & Plan: He has had multiple episodes of this in the past. He failed to attempts at electrical cardioversion in the emergency department, but spontaneously converted a short while later. An echocardiogram is pending. (2) Hypokalemia Status: Acute Hospital Course & Plan: Resolved with supplementation. 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 A TCN consult has been ordered. (4) Chronic kidney disease, stage IV (severe) Status: Chronic Hospital Course & Plan: His creatinine is 2.3 at time of admission, which is close to his baseline. According to records, he had a hypernephroma treated with embolization many years ago. Departure Weight (Pounds): 154 Weight (Ounces): 4.0 Result Diagram: 09/14/1820 09/14/18 0520 Discharge Instructions Home Meds Active Scripts Potassium Chloride (KLOR-CON M20) 20 Meq Tab.er.prt, 20 MEQ PO QDAY, #30 TAB 0 Refills Prov:ISRAEL SCHRADER MD 12/20/16 Docusate Sodium (DOCUSATE SODIUM) 100 Mg Capsule, 100 MG PO BID, #60 CAPSULE 1 Refill Hold if diarrhea Prov:BALJIT DOWNING MD 07/26/16 Metoprolol Succinate (METOPROLOL SUCCINATE) 25 Mg Tab.er.24h, 1 TAB PO QDAY, #30 TAB 1 Refill Prov:BALJIT DOWNING MD 07/26/16 Hydrocortisone (ANUSOL-HC) 30 Gm Cream..g., 2 GM RC TID for rectal pain, #60 2 Refills Prov:MAINE ARRIOLA DO 05/30/16 Hydrocortisone Acetate (ANUSOL-HC) 25 Mg Supp.rect, 25 MG RC BID for hemorriods, #15 SUPP.RECT Prov:MAINE ARRIOLA DO 05/09/16 Reported Medications Sodium Bicarbonate (SODIUM BICARBONATE) 650 Mg Tablet, 650 MG PO BID 09/14/18 Dutasteride (AVODART) 0.5 Mg Capsule, 0.5 MG PO QDAY, CAPSULE 09/14/18 Linaclotide (LINZESS) 145 Mcg Capsule, 145 MCG PO, CAPSULE 09/06/18 Lisinopril (LISINOPRIL) 10 Mg Tablet, 10 MG PO QDAY, TAB 12/13/15 Acetaminophen (TYLENOL) 325 Mg Tablet, 650 MG PO Q6H PRN for PAIN OR FEVER 100 OR GREATER, TAB 10/14/15 Vitamin E Mixed (VITAMIN E) 400 Unit Capsule, 400 UNIT PO QHS, CAPSULE 10/14/15 Pyridoxine Hcl (VITAMIN B-6) 100 Mg Tablet, 100 MG PO DAILY 10/14/15 Hydralazine Hcl (HYDRALAZINE HCL) 100 Mg Tablet, 100 MG PO TID, TAB 10/14/15 Aspirin (ASPIRIN EC) 81 Mg Tablet.dr, 81 MG PO QHS, TAB 10/14/15 Gluc/Keith-Msm#1/C/Jose Ramon/Demetri/Bor (OSTEO BI-FLEX CAPLET) 1 Each Tablet, 2 EACH PO DAILY 02/15/15 Fluticasone Prop 50 Mcg Ns (FLONASE 50 MCG NS) 16 Gm Foss.susp, 1 SPRAY NS BID 04/27/14 Cyanocobalamin (Vitamin B-12) (VITAMIN B-12) 5,000 Mcg Tab.subl, 5000 MCG PO QHS 04/27/14 Memantine Hcl (Namenda) 10 Mg Tablet, 10 MG PO BID 12/08/12 Amlodipine Besylate (Norvasc) 10 Mg Tablet, 10 MG PO DAILY, 0 Refills 12/15/10 Discontinued Reported Medications Sodium Bicarbonate (SODIUM BICARBONATE) 650 Mg Tablet, 650 MG PO DAILY 10/14/15 Topiramate (TROKENDI XR) 50 Mg Cap.er.24h, 150 MG PO QHS 10/14/15 Donepezil Hcl (DONEPEZIL HCL) 10 Mg Tab.rapdis, 10 MG PO HS, TAB TAKE 1 TABLET BY MOUTH AT BEDTIME 04/27/14 Dutasteride (Avodart) 0.5 Mg Cap, 0.5 MG PO BID, 0 Refills 12/15/10 Discontinued Scripts Polyethylene Glycol 3350 (POLYETHYLENE GLYCOL 3350) 17 Gm Powd.pack, 17 GM PO QDAY, #30 PACK 1 Refill Hold if diarrhea Prov:BALJIT DOWNING MD 07/26/16 Hydrocodone Bit/Acetaminophen (HYDROCODON-ACETAMINOPHEN 5-325) 1 Each Tablet, 1 EACH PO Q6H PRN for PAIN, #30 TAB 0 Refills Prov:BALJIT DOWNING MD 07/26/16 Diet: Regular Activity: As Tolerated, With Walker Special Instructions: Venous Thromboembolism Antithrombotics Is Pt On Any Antithrombotics?: No [id number] Certification Face to Face Home Health Certification Institutional Provider conducted the [id number] encounter. Electronic Undersigning Physician Certifies Home Health. I certify that the patient has been under my care and that I had a [id number] encounter that meets the physician [id number] encounter requirements with this patient. This patient is home-bound due to safety issues and continues to require assistance with ADL's. I certify that based on my findings, that Nursing, Aides and the following Home Health services are medically necessary: Medical Necessity: Nursing Date Face to Face Conducted: Sep 15, 2018 CELINA DOWNING MD Sep 15, 2018 09:36
[2018-09-15] MEDS ORDERED: SODI650T7 PO (10:38)
[2018-09-15] MEDS ORDERED: POLY17PO25 PO (10:39)
[2018-09-15] MEDS ORDERED: TOPI50CA6 PO (10:44)
[2018-09-15] MEDS ORDERED: HYDR25SU51 RC ×2 (10:47→10:50)
[2018-09-15] MEDS ORDERED: HYDR-6045 RC (10:50)
[2018-09-15] MEDS ORDERED: METO-253 PO (10:59)
== END 2018-09-15 11:40 | disposition home health service (06) | DRG 309 ==
LOC: ER 04:09 → MED 06:44
PROVIDERS: ADMIT Internal Medicine; ATTEND Internal Medicine
DX: I47.1 Supraventricular tachycardia (principal); N18.4 Chronic kidney disease, stage 4 (severe); E87.6 Hypokalemia; G31.84 Mild cognitive impairment of uncertain or unknown etiology; I12.9 Hypertensive chronic kidney disease with stage 1 through stage 4 chronic kidney disease, or unspecified chronic kidney disease; G47.33 Obstructive sleep apnea (adult) (pediatric); I35.1 Nonrheumatic aortic (valve) insufficiency; F41.9 Anxiety disorder, unspecified; G25.0 Essential tremor; K64.9 Unspecified hemorrhoids; I27.20 Pulmonary hypertension, unspecified; K59.09 Other constipation; Z88.8 Allergy status to other drugs, medicaments and biological substances; Z87.820 Personal history of traumatic brain injury; Z23 Encounter for immunization
CPT/HCPCS: 36415; 71045; 82040; 82247; 82310; 82374; 82435; 82565; 82947; 84075; 84132; 84155; 84295; 84443; 84450; 84460; 84484; 84520; 85025; 90674; 93005; 93306; 96361; 96374; 96375; 96376; 99284; J0153; J3480; J3490; J7030

== ENCOUNTER → 2018-09-13 | Outpatient (CLI) | payer MEDICARE, MEDICAID ==
[2018-09-13 13:47] VITALS: BMI 18.7
== END ==
LOC: AMB 03:30
PROVIDERS: ATTEND Nurse Practitioner
DX: R07.9 Chest pain, unspecified (principal); R53.1 Weakness
CPT/HCPCS: A0425; A0427

== ENCOUNTER → 2018-09-15 | Outpatient (CLI) | payer MEDICARE, MEDICAID ==
[2018-09-13 13:47] VITALS: BMI 18.7
[~2018-09-15] MED LIST changes: +DUTA0.5C14 PO; +METO-253 PO; +POLY17PO25 PO
== END ==
LOC: AMB 11:18
PROVIDERS: ATTEND Nurse Practitioner
DX: Z76.89 Persons encountering health services in other specified circumstances (principal)
CPT/HCPCS: A0425; A0428

== ENCOUNTER 2018-10-21 23:51 | Observation (INO) | payer MEDICARE, MEDICAID ==
[2018-09-13 13:47] VITALS: BMI 18.7
--- NOTE | 2018-10-22 00:01 | ER Report ---
History and Physical Time Seen By MD: 00:01 (ISRAEL SCHRADER MD) HPI/ROS CHIEF COMPLAINT: SVT, chest pain HISTORY OF PRESENT ILLNESS: This is a 73-year-old male. He has underlying dementia. He called EMS with chest pain tonight. He has known SVT and has been to the ER multiple times for this. Usually resolves with 12 mg of adenosine. He usually has chest pain with this as well and has this tonight. He appears a little bit more confused than normal tonight as well. He is feeling short of breath. (ISRAEL SCHRADER MD) Allergies: Coded Allergies: atorvastatin calcium (Verified Allergy, Severe, HIVES, 09/06/18) Home Meds Active Scripts Metoprolol Tartrate (METOPROLOL TARTRATE) 50 Mg Tab, 12.5 MG PO BID, #180 TAB Prov:CELINA DOWNING MD 09/15/18 Hydrocortisone Acetate (ANUSOL-HC) 25 Mg Supp.rect, 25 MG RC BID PRN for HEMORRHOIDS, #15 SUPP.RECT Prov:CELINA DOWNING MD 09/15/18 Hydrocortisone (ANUSOL-HC) 30 Gm Cream..g., 1 APPLIC RC TID PRN for HEMORRHOIDS, #60 TUBE 2 Refills Prov:CELINA DOWNING MD 09/15/18 Potassium Chloride (KLOR-CON M20) 20 Meq Tab.er.prt, 20 MEQ PO QDAY, #30 TAB 0 R efills Prov:ISRAEL SCHRADER MD 12/20/16 Reported Medications Topiramate (TROKENDI XR) 50 Mg Cap.er.24h, 3 CAP PO HS 09/15/18 Polyethylene Glycol 3350 (MIRALAX) 17 Gm Powd.pack, 17 GM PO DAILY, PKT 09/15/18 Sodium Bicarbonate (SODIUM BICARBONATE) 650 Mg Tablet, 650 MG PO DAILY 09/15/18 Dutasteride (AVODART) 0.5 Mg Capsule, 0.5 MG PO QDAY, CAPSULE 09/14/18 Linaclotide (LINZESS) 145 Mcg Capsule, 145 MCG PO, CAPSULE 09/06/18 Lisinopril (LISINOPRIL) 10 Mg Tablet, 10 MG PO QDAY, TAB 12/13/15 Hydralazine Hcl (HYDRALAZINE HCL) 100 Mg Tablet, 100 MG PO TID, TAB 10/14/15 Aspirin (ASPIRIN EC) 81 Mg Tablet.dr, 81 MG PO QHS, TAB 10/14/15 Fluticasone Prop 50 Mcg Ns (FLONASE 50 MCG NS) 16 Gm [place].susp, 1 SPRAY NS BID 04/27/14 Memantine Hcl (Namenda) 10 Mg Tablet, 10 MG PO BID 12/08/12 Amlodipine Besylate (Norvasc) 10 Mg Tablet, 10 MG PO DAILY, 0 Refills 12/15/10 Past Medical/Surgical History SVT, hypertension, hyperlipidemia, coronary artery disease, TIA, heart failure, GERD, constipation, BPH, allergic rhinitis, arthritis. Surgical history of shoulder surgery and bilateral cataracts. medications include Metoprolol 12.5 mg twice a day, lisinopril 10 mg once a day, hydralazine 100 mg 3 times a day, amlodipine 10 mg once a day, aspirin 81 mg at bedtime, topiramate 50 mg, 3 capsules at bedtime, Namenda 10 mg twice a day, Rae's S1 145 g capsule once a day, Flonase nasal spray, Avodart 0.5 mg once a day. Also takes potassium chloride 20 mEq once a day for ongoing problems with low potassium (ISRAEL SCHRADER MD) Reviewed Nurses Notes: Yes (ISRAEL SCHRADER MD) Hx Smoking: No Smoking Status: Never Smoker Exposure to Second Hand Smoke?: No Hx Substance Use Disorder: No Hx Alcohol Use: No (ISRAEL SCHRADER MD) Constitutional Vital Sign - Last 24 Hours 10/21/18 10/21/18 10/21/18 10/22/18 23:51 23:58 23:59 00:13 Temp 98.1 Pulse ??? 181 Resp 18 B/P (MAP) 96/61 (73) 114/70 (85) Pulse Ox 94 O2 Delivery Room Air 10/22/18 10/22/18 10/22/18 10/22/18 00:15 00:21 00:30 00:45 Pulse 91 Resp 24 B/P (MAP) 112/69 (83) 121/69 (86) 114/76 (89) Pulse Ox 92 10/22/18 10/22/18 10/22/18 10/22/18 00:51 01:00 01:15 01:30 Pulse 80 76 79 Resp 20 9 27 B/P (MAP) 124/79 (94) 118/79 (92) 127/76 (93) Pulse Ox 97 78 89 10/22/18 10/22/18 10/22/18 10/22/18 01:45 02:00 02:15 02:30 Pulse 59 Resp 15 15 B/P (MAP) 130/79 (96) 137/76 (96) 140/74 (96) 122/75 (91) Pulse Ox 92 10/22/18 10/22/18 10/22/18 10/22/18 02:45 03:30 03:45 04:00 Pulse 58 57 Resp 25 17 B/P (MAP) 152/80 (104) 139/75 (96) 155/96 (115) 156/78 (104) 10/22/18 10/22/18 10/22/18 10/22/18 04:15 04:30 04:45 05:00 Pulse 63 50 Resp 21 17 B/P (MAP) 149/100 (116) 154/81 (105) 155/75 (101) 150/82 (104) 10/22/18 10/22/18 10/22/18 10/22/18 05:15 05:20 05:35 05:50 Pulse 63 61 61 Resp 26 12 19 B/P (MAP) 148/80 (102) 10/22/18 10/22/18 10/22/18 10/22/18 06:00 06:05 06:20 06:35 Pulse 60 57 60 Resp 9 11 19 B/P (MAP) 151/74 (99) 10/22/18 10/22/18 10/22/18 10/22/18 06:50 07:00 07:05 07:35 Pulse 61 61 66 Resp 10 11 10 B/P (MAP) 170/98 (122) 10/22/18 10/22/18 08:00 08:05 Pulse 57 Resp 18 B/P (MAP) 178/87 (117) Intake and Output 10/21/18 10/21/18 10/22/18 15:00 23:00 07:00 Intake Total 2000 ml Balance 2000 ml (ISH CARSON MD) Physical Exam General Appearance: The patient is alert, bit more confused than he usually is when he arrives at hospital this problem, difficulty answering questions. No acute distress. Eyes: Pupils are equal, round. No pallor, injection or icterus. ENT: Mucous membranes are moist. Normal oral mucosa. Posterior oropharynx is normal. Normal tympanic membranes and canals. Neck: Supple and non tender. Respiratory: Lungs are clear to auscultation. Cardiovascular: Tachycardia with a regular rhythm. Rhythm strip shows supraventricular tachycardia at the rate of 180. No murmurs, gallops or rubs. Normal capillary refill. No edema. Gastrointestinal: Abdomen is soft and non tender. Nondistended. Normal active bowel sounds. Neurological: Alert and oriented x3. No focal neurologic deficits noted on exam. He is able to move all extremities. Skin: Warm and dry. Musculoskeletal: Extremities are nontender. No tenderness in palpation of the cervical, thoracic and lumbar spine. DIFFERENTIAL DIAGNOSIS: After history and physical exam, differential diagnosis was considered for chest pain that appears to be due to SVT again. We will go ahead and try and convert with adenosine or further interventions as needed. ([facility]) Medical Decision Making Data Points Result Diagram: 10/22/18 0002 10/22/18 0509 Laboratory Hematology Test 10/22/18 00:02 10/22/18 05:09 Red Blood Count 5.24 M/uL (4.00-5.60) Mean Corpuscular Volume 83.5 fL (80.0-96.0) Mean Corpuscular Hemoglobin 27.4 pg (26.0-33.0) Mean Corpuscular Hemoglobin Concent 32.8 g/dL (32.0-36.0) Red Cell Distribution Width 14.3 % (11.5-14.5) Mean Platelet Volume 8.2 fL (7.2-11.1) Neutrophils (%) (Auto) 82.9 % (39.4-72.5) Lymphocytes (%) (Auto) 9.3 % (17.6-49.6) Monocytes (%) (Auto) 5.5 % (4.1-12.4) Eosinophils (%) (Auto) 1.0 % (0.4-6.7) Basophils (%) (Auto) 1.3 % (0.3-1.4) Nucleated RBC Relative Count (auto) 0.1 /100WBC Neutrophils # (Auto) 5.5 K/uL (2.0-7.4) Lymphocytes # (Auto) 0.6 K/uL (1.3-3.6) Monocytes # (Auto) 0.4 K/uL (0.3-1.0) Eosinophils # (Auto) 0.1 K/uL (0.0-0.5) Basophils # (Auto) 0.1 K/uL (0.0-0.1) Nucleated RBC Absolute Count (auto) 0.00 K/uL Sodium Level 142 mmol/L (137-145) Potassium Level 3.2 mmol/L (3.5-5.0) Chloride Level 120 mmol/L (98-107) Carbon Dioxide Level 17 mmol/L (22-30) Blood Urea Nitrogen 35 mg/dl (9-21) Creatinine 2.20 mg/dl (0.66-1.25) Glomerular Filtration Rate Calc 29.3 Random Glucose 77 mg/dl (75-110) Calcium Level 9.2 mg/dl (8.4-10.2) Total Bilirubin 0.4 mg/dl (0.2-1.3) Aspartate Amino Transf (AST/SGOT) 27 U/L (0-35) Alanine Aminotransferase (ALT/SGPT) 47 U/L (0-56) Alkaline Phosphatase 66 U/L (0-126) Troponin I 0.150 ng/ml Total Protein 7.0 g/dl (6.3-8.2) Albumin 3.4 g/dl (3.5-5.0) Chemistry Test 10/22/18 00:02 10/22/18 05:09 White Blood Count 6.7 k/uL (4.5-11.0) Red Blood Count 5.24 M/uL (4.00-5.60) Hemoglobin 14.3 g/dL (14.0-18.0) Hematocrit 43.7 % (42.0-52.0) Mean Corpuscular Volume 83.5 fL (80.0-96.0) Mean Corpuscular Hemoglobin 27.4 pg (26.0-33.0) Mean Corpuscular Hemoglobin Concent 32.8 g/dL (32.0-36.0) Red Cell Distribution Width 14.3 % (11.5-14.5) Platelet Count 210 K/uL (150-450) Mean Platelet Volume 8.2 fL (7.2-11.1) Neutrophils (%) (Auto) 82.9 % (39.4-72.5) Lymphocytes (%) (Auto) 9.3 % (17.6-49.6) Monocytes (%) (Auto) 5.5 % (4.1-12.4) Eosinophils (%) (Auto) 1.0 % (0.4-6.7) Basophils (%) (Auto) 1.3 % (0.3-1.4) Nucleated RBC Relative Count (auto) 0.1 /100WBC Neutrophils # (Auto) 5.5 K/uL (2.0-7.4) Lymphocytes # (Auto) 0.6 K/uL (1.3-3.6) Monocytes # (Auto) 0.4 K/uL (0.3-1.0) Eosinophils # (Auto) 0.1 K/uL (0.0-0.5) Basophils # (Auto) 0.1 K/uL (0.0-0.1) Nucleated RBC Absolute Count (auto) 0.00 K/uL Glomerular Filtration Rate Calc 29.3 Calcium Level 9.2 mg/dl (8.4-10.2) Total Bilirubin 0.4 mg/dl (0.2-1.3) Aspartate Amino Transf (AST/SGOT) 27 U/L (0-35) Alanine Aminotransferase (ALT/SGPT) 47 U/L (0-56) Alkaline Phosphatase 66 U/L (0-126) Troponin I 0.150 ng/ml Total Protein 7.0 g/dl (6.3-8.2) Albumin 3.4 g/dl (3.5-5.0) (ISH CARSON MD) EKG/Imaging EKG Interpretation 12 lead EKG: After conversion with adenosine. Rhythm: Sinus rhythm with first-degree AV block, rate 87 [place]: normal QRS: LVH ST segments: Nonspecific No changes when compared to previous. 12 lead EKG: Rhythm: Sinus rhythm with first-degree AV block, rate 60 [place]: Left axis deviation QRS: Left ventricular hypertrophy ST segments: Nonspecific Unchanged (ISRAEL SCHRADER MD) ED Course/Re-evaluation Clinical Indication for ER IV: Hydration, IV Access ED Course Patient was given adenosine 6 mg IV push, no change. A second dose of 12 mg was given with good conversion into a normal sinus rhythm. Observed in the ER on the monitor for any recurrent SVT. Also watching to see if his symptoms would improve and awaiting labs Patient's mental status which initially was questionable improvement to his usual level of consciousness. He has no further shortness of breath or chest pain. We watched him for a couple of hours here in the ER and remained in a sinus rhythm. Initial troponin was in the indeterminate range at 0.08. Labs showed chronic renal insufficiency at baseline, his bicarbonate was a little bit low as well today compared to usual. He was given a liter of normal saline while we watched him in the ER. A repeat troponin was done 2 hours later and was increased to 0.10. Still no chest pain or shortness of breath, feeling okay. A repeat troponin and metabolic panel and EKG were done at 0500 hrs.; troponin had increased to 0.15. This does not appear to be indicative acute AK in more likely demand ischemia from his SVT which we have seen in the past. He was feeling better, but now is not sure. We talked about admission or transfer. I talked to Dr. Alcaraz, hospitalist, and recommended discussion with cardiology. Cardiology, Dr. Velasco, at [facility] discussed the case with me. He was willing to have the patient transferred there for admission and further evaluation although the patient was not sure and thought he might want to go home. After further conversation with the patient, he was still not sure, but eventually decided he would be okay with going to [facility] to see the scouring train operator about this today. We also considered admitting the patient here but felt based on his chronic medical conditions, dementia, and recent problems it would be best to obtain cardiology evaluation when were able to. Contacted [facility] again. [facility] waiting to see if they have a bed available and we are waiting for weather to clear enough for transfer. I spoke with Dr. Murguia, hospitalist who did accept the patient, but need to have a bed available first prior to transfer. Decision to Disposition Date: Oct 22, 2018 Decision to Disposition Time: 07:04 ([facility]) Depart Departure Latest Vital Signs Vital Signs Date Time Temp Pulse Resp B/P (MAP) Pulse Ox O2 Delivery O2 Flow Rate FiO2 10/22/18 08:05 57 18 10/22/18 08:00 178/87 (117) 10/22/18 02:30 92 10/21/18 23:58 98.1 Room Air (ISH CARSON MD) Impression: Primary Impression: PSVT (paroxysmal supraventricular tachycardia) Additional Impression: Elevated troponin Condition: Condition Unchanged Disposition: Admitted from ER Referrals: YOLANDA MCKEON MD (PCP) Problem Qualifiers ISRAEL SCHRADER MD Oct 22, 2018 00:01 ISH CARSON MD Oct 22, 2018 08:40
[2018-10-22] MEDS ORDERED: ADENOSINE(*)IV SOLN 3MG/ML ONE (00:06)
--- NOTE | 2018-10-22 00:16 | EKG ---
FACILITY: PATIENT NAME: YARA MURPHY : [id number] MR: [id number] V: [id number] EXAM DATE: ORDERING PHYSICIAN: ISRAEL SCHRADER TECHNOLOGIST: SHIRA Test Reason : SVT Blood Pressure : / mmHG Vent. Rate : 087 BPM Atrial Rate : 087 BPM P-R Int : 234 ms QRS Dur : 134 ms QT Int : 380 ms P-R-T Axes : 026 -59 104 degrees QTc Int : 457 ms Sinus rhythm with 1st degree AV block Left ventricular hypertrophy with QRS widening and repolarization abnormality Abnormal ECG When compared with ECG of 13-SEP-2018 04:38, OK interval has increased T wave inversion less evident in Lateral leads Confirmed by YOLANDA RAMIREZ ([id number]) on 10/22/2018 6:07:58 AM Referred By: Confirmed By:YOLANDA RAMIREZ
[2018-10-22 00:17] LABS: PLATELET COUNT, AUTOMATED 210 K/uL (150-450)
[2018-10-22] MEDS ORDERED: NS(*) 0.9% 1000 ML BAG 1,000 ML IV ONE ×2 (00:40→03:05)
--- NOTE | 2018-10-22 05:07 | EKG ---
FACILITY: [facility] PATIENT NAME: YARA MURPHY : [id number] MR: [id number] V: [id number] EXAM DATE: ORDERING PHYSICIAN: ISRAEL SCHRADER TECHNOLOGIST: SHIRA Santos Reason : REPEAT EKG Blood Pressure : / mmHG Vent. Rate : 060 BPM Atrial Rate : 060 BPM P-R Int : 226 ms QRS Dur : 134 ms QT Int : 480 ms P-R-T Axes : 018 -43 126 degrees QTc Int : 480 ms Sinus rhythm with 1st degree AV block Left axis deviation Left ventricular hypertrophy with QRS widening T wave abnormality, consider lateral ischemia Abnormal ECG When compared with ECG of 22-OCT-2018 00:05, No significant change was found Confirmed by YOLANDA RAMIREZ ([id number]) on 10/22/2018 6:08:13 AM Referred By: Confirmed By:YOLANDA RAMIREZ
[2018-10-22 11:28] VITALS: BP 192/85
[2018-10-22] MEDS ORDERED: MORPHINE 4 MG/ML SDV IVP PRN (12:00)
[2018-10-22] MEDS ORDERED: ACETAMINOPHEN 325 MG TAB PO PRN (12:00)
[2018-10-22] MEDS ORDERED: POTASSIUM CHL 20 MEQ TABCR PO SCH (13:40)
--- NOTE | 2018-10-22 13:56 | History & Physical ---
History of Present Illness Chief Complaint SVT, Chest pain History of Present Illness He is a 73-year-old male who presented to the emergency department with chest pain. He states he felt his heart rate going fast and felt SOB also. He has underlying dementia. He has known SVT and has been to the ER multiple times for this. Usually resolves with 12 mg of adenosine. He usually has chest pain with this as well. He was converted to normal sinus rhythm with Adenosine. He reports the chest pain is gone at this time, however, did have an increase in troponin. He was recommended for transfer to [facility] to seek cardiology care, but was not yet able to transfer secondary to bed availability at [facility]. He has still been accepted, just not able to yet be transferred. So he was recommended for admission until the transfer could be completed. History Problems: (1) Chronic kidney disease, stage IV (severe) Status: Chronic (2) SVT (supraventricular tachycardia) Status: Chronic (3) Hypokalemia Status: Chronic (4) MICHAEL (obstructive sleep apnea) Status: Chronic (5) Dementia Status: Chronic Home Meds Active Scripts Metoprolol Tartrate (METOPROLOL TARTRATE) 50 Mg Tab, 12.5 MG PO BID, #180 TAB Prov:CELINA DOWNING MD 09/15/18 Hydrocortisone Acetate (ANUSOL-HC) 25 Mg Supp.rect, 25 MG RC BID PRN for HEMORRHOIDS, #15 SUPP.RECT Prov:CELINA DOWNING MD 09/15/18 Hydrocortisone (ANUSOL-HC) 30 Gm Cream..g., 1 APPLIC RC TID PRN for HEMORRHOIDS, #60 TUBE 2 Refills Prov:CELINA DOWNING MD 09/15/18 Potassium Chloride (KLOR-CON M20) 20 Meq Tab.er.prt, 20 MEQ PO QDAY, #30 TAB 0 Refills Prov:ISRAEL SCHRADER MD 12/20/16 Reported Medications Topiramate (TROKENDI XR) 50 Mg Cap.er.24h, 3 CAP PO HS 09/15/18 Polyethylene Glycol 3350 (MIRALAX) 17 Gm Powd.pack, 17 GM PO DAILY, PKT 09/15/18 Sodium Bicarbonate (SODIUM BICARBONATE) 650 Mg Tablet, 650 MG PO DAILY 09/15/18 Dutasteride (AVODART) 0.5 Mg Capsule, 0.5 MG PO QDAY, CAPSULE 09/14/18 Linaclotide (LINZESS) 145 Mcg Capsule, 145 MCG PO, CAPSULE 09/06/18 Lisinopril (LISINOPRIL) 10 Mg Tablet, 10 MG PO QDAY, TAB 12/13/15 Hydralazine Hcl (HYDRALAZINE HCL) 100 Mg Tablet, 100 MG PO TID, TAB 10/14/15 Aspirin (ASPIRIN EC) 81 Mg Tablet.dr, 81 MG PO QHS, TAB 10/14/15 Fluticasone Prop 50 Mcg Ns (FLONASE 50 MCG NS) 16 Gm [place].susp, 1 SPRAY NS BID 04/27/14 Memantine Hcl (Namenda) 10 Mg Tablet, 10 MG PO BID 12/08/12 Amlodipine Besylate (Norvasc) 10 Mg Tablet, 10 MG PO DAILY, 0 Refills 12/15/10 Allergies: Coded Allergies: atorvastatin calcium (Verified Allergy, Severe, HIVES, 09/06/18) Hx Smoking: No Smoking Status: Never Smoker Exposure to Second Hand Smoke?: No Caffeine Intake: Coffee, Tea Caffeine/Cups Per Day: OCCASIONAL Hx Alcohol Use: No Hx Substance Use Disorder: No Review of Systems All Systems Reviewed/Normal: Yes, Except as Noted Exam Vital Signs Vital Signs Date Time Temp Pulse Resp B/P (MAP) Pulse Ox O2 Delivery O2 Flow Rate FiO2 10/22/18 12:46 63 10/22/18 11:30 95 10/22/18 11:28 99.0 14 192/85 (120) Room Air General Appearance: Alert, Awake, No Acute Distress, Afebrile Cardiovascular: Regular Rate and Rhythm Respiratory: No Respiratory Distress, Clear to Auscultation GI: Abd Soft and Non-Tender Extremities: Warm, Perfused; No Edema Psych: Appropriate Mood & Affect, Other (he is confused to the situation) Medical Decision Making Data Points Result Diagram: 10/22/18 0002 10/22/18 0501 Assessment and Plan Problems: (1) PSVT (paroxysmal supraventricular tachycardia) Status: Acute Assessment & Plan: He presented with SVT. He was given Adenosine 6mg, then 12mg and converted to NSR. He has had recurrent SVT over the past few months. He will be monitored on telemetry for recurrence of SVT. He denies chest pain at this time. (2) Elevated troponin Status: Acute Assessment & Plan: He had elevated troponin with SVT. Will continue to trend troponin levels. He has been accepted to [facility] when a bed opens up. (3) Hypokalemia Status: Chronic Assessment & Plan: His potassium was 3.2 upon admission. He will get oral potassium replacement. (4) Cognitive impairment Status: Chronic Assessment & Plan: Chronic. Fairly severe. 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 (5) Chronic kidney disease, stage IV (severe) Status: Chronic Assessment & Plan: His creatinine is 2.2 at time of admission, which is close to his baseline. According to records, he had a hypernephroma treated with embolization many years ago. He has seen Dr. Rivera in the past. Watch labs. Venous Thromboembolism Antithrombotics Is Pt On Any Antithrombotics?: No Exam Sepsis Risk: No Definite Risk NABIL MOHANP Oct 22, 2018 13:56
[2018-10-22] MEDS ORDERED: hydrALAZINE HCL 25 MG TAB PO SCH (14:00)
--- NOTE | 2018-10-22 15:02 | Hospitalist Depart ---
Discharge Summary Reason for Hosp/Final Diag: (1) PSVT (paroxysmal supraventricular tachycardia) Status: Acute Hospital Course & Plan: He presented with SVT. He was given Adenosine 6mg, then 12mg and converted to NSR. He has had recurrent SVT over the past few months. He was monitored on telemetry for recurrence of SVT. He denies chest pain at this time. He will be transferred to [facility] for cardiac care. Dr. Ilene Murguia (Hospitalist) has accepted the patient. (2) Elevated troponin Status: Acute Hospital Course & Plan: He had elevated troponin with SVT. His troponin level is 0.179 which has increased from 0.082 from the ER this morning. He has been accepted to [facility]. Will transfer the patient for cardiac care. (3) Hypokalemia Status: Chronic Hospital Course & Plan: His potassium was 3.2 upon admission. He will get oral potassium replacement. (4) Cognitive impairment Status: Chronic Hospital Course & Plan: Chronic. Fairly severe. 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 (5) Chronic kidney disease, stage IV (severe) Status: Chronic Hospital Course & Plan: His creatinine is 2.2 at time of admission, which is close to his baseline. According to records, he had a hypernephroma treated with embolization many years ago. He has seen Dr. Rivera in the past. Departure Latest Vital Signs Vital Signs 10/22/18 10/22/18 10/22/18 11:28 11:30 12:46 Temp 99.0 Pulse 63 Resp 14 B/P (MAP) 192/85 (120) Pulse Ox 95 O2 Delivery Room Air Weight (Pounds): 154 Weight (Ounces): 4.0 Result Diagram: 10/22/18 0002 10/22/18 0509 Condition: No Change Discharge: Another Hospital Discharge Instructions Home Meds Active Scripts Metoprolol Tartrate (METOPROLOL TARTRATE) 50 Mg Tab, 12.5 MG PO BID, #180 TAB Prov:CELINA DOWNING MD 09/15/18 Hydrocortisone Acetate (ANUSOL-HC) 25 Mg Supp.rect, 25 MG RC BID PRN for HEMORRHOIDS, #15 SUPP.RECT Prov:CELINA DOWNING MD 09/15/18 Hydrocortisone (ANUSOL-HC) 30 Gm Cream..g., 1 APPLIC RC TID PRN for HEMORRHOIDS, #60 TUBE 2 Refills Prov:CELINA DOWNING MD 09/15/18 Potassium Chloride (KLOR-CON M20) 20 Meq Tab.er.prt, 20 MEQ PO QDAY, #30 TAB 0 Refills Prov:ISRAEL SCHRADER MD 12/20/16 Reported Medications Topiramate (TROKENDI XR) 50 Mg Cap.er.24h, 3 CAP PO HS 09/15/18 Polyethylene Glycol 3350 (MIRALAX) 17 Gm Powd.pack, 17 GM PO DAILY, PKT 09/15/18 Sodium Bicarbonate (SODIUM BICARBONATE) 650 Mg Tablet, 650 MG PO DAILY 09/15/18 Dutasteride (AVODART) 0.5 Mg Capsule, 0.5 MG PO QDAY, CAPSULE 09/14/18 Linaclotide (LINZESS) 145 Mcg Capsule, 145 MCG PO, CAPSULE 09/06/18 Lisinopril (LISINOPRIL) 10 Mg Tablet, 10 MG PO QDAY, TAB 12/13/15 Hydralazine Hcl (HYDRALAZINE HCL) 100 Mg Tablet, 100 MG PO TID, TAB 10/14/15 Aspirin (ASPIRIN EC) 81 Mg Tablet.dr, 81 MG PO QHS, TAB 10/14/15 Fluticasone Prop 50 Mcg Ns (FLONASE 50 MCG NS) 16 Gm [place].susp, 1 SPRAY NS BID 04/27/14 Memantine Hcl (Namenda) 10 Mg Tablet, 10 MG PO BID 12/08/12 Amlodipine Besylate (Norvasc) 10 Mg Tablet, 10 MG PO DAILY, 0 Refills 12/15/10 Diet: Regular Activity: As Tolerated Copies to: YOLANDA MCKEON MD ; Venous Thromboembolism Antithrombotics Is Pt On Any Antithrombotics?: No NABIL MOHAN ETCHER ENAMELING Oct 22, 2018 15:02
[2018-10-22 15:24] VITALS: BP 187/81
[2018-10-22] MEDS ORDERED: TOPIRAMATE 50 MG PO SCH (21:00)
[2018-10-22] MEDS ORDERED: MEMANTINE HCL 10 MG TABLET PO SCH (21:00)
[2018-10-22] MEDS ORDERED: FLUTICASONE PROP 0.05% 16 GM SCH (21:00)
[2018-10-22] MEDS ORDERED: METOPROLOL TART 50 MG TAB PO SCH (21:00)
[2018-10-22] MEDS ORDERED: ASPIRIN 81 MG PO SCH (21:00)
[2018-10-23] MEDS ORDERED: ENOXAPARIN 30 MG/0.3 ML SYR SC SCH (09:00)
[2018-10-23] MEDS ORDERED: ASPIRIN 81 MG CHEW PO SCH (09:00)
[2018-10-23] MEDS ORDERED: LISINOPRIL 10 MG TAB PO SCH (09:00)
[2018-10-23] MEDS ORDERED: DUTASTERIDE 0.5 MG CAP PO SCH (09:00)
[2018-10-23] MEDS ORDERED: amLODIPine BESYL(*) 5 MG TAB PO SCH (09:00)
[2018-10-23] MEDS ORDERED: POLYETHYLENE GLYCOL 17 GM PKT PO SCH (09:00)
[2018-10-23] MEDS ORDERED: SODIUM BICARBONATE 650 MG TAB PO SCH (09:00)
[2018-10-24] MEDS ORDERED: INFLUENZA VIRUS VAC 0.5ML SYR IM ONLY ONE (12:00)
== END 2018-10-22 14:57 | disposition short-term general hospital (02) ==
LOC: ER 23:59 → INTOOBSV 10-22 09:24 → MED 10-22 09:24
PROVIDERS: ADMIT Internal Medicine; ATTEND Internal Medicine
DX: I47.1 Supraventricular tachycardia (principal); R79.89 Other specified abnormal findings of blood chemistry; E87.6 Hypokalemia; G31.84 Mild cognitive impairment of uncertain or unknown etiology; N18.4 Chronic kidney disease, stage 4 (severe)
CPT/HCPCS: 36415; 84484; 85025; 93005; 96360; 96361; 99285; A9270; G0378; J0153; J7030; 82040; 82247; 82310; 82374; 82435; 82565; 82947; 84075; 84132; 84155; 84295; 84450; 84460; 84520

== ENCOUNTER → 2018-10-21 | Outpatient (CLI) | payer MEDICARE, MEDICAID ==
[2018-09-13 13:47] VITALS: BMI 18.7
== END ==
LOC: AMB 23:39
PROVIDERS: ATTEND Nurse Practitioner
DX: R07.9 Chest pain, unspecified (principal)
CPT/HCPCS: A0425; A0427

== ENCOUNTER → 2018-10-22 | Outpatient (CLI) | payer MEDICARE, MEDICAID ==
[2018-09-13 13:47] VITALS: BMI 18.7
== END ==
LOC: AMB 16:10
PROVIDERS: ATTEND Nurse Practitioner
DX: I47.1 Supraventricular tachycardia (principal); R79.89 Other specified abnormal findings of blood chemistry
CPT/HCPCS: A0425; A0426

== ENCOUNTER 2019-01-06 18:14 | Emergency (ER) | payer MEDICARE, MEDICAID ==
[2018-09-13 13:47] VITALS: Wt 72.6 kg
[2019-01-06] MEDS ORDERED: NS(*) 0.9% 1000 ML BAG 1,000 ML IV ONE (18:21)
[2019-01-06] MEDS ORDERED: ADENOSINE(*)IV SOLN 3MG/ML IVP ONE ×2 (18:25)
--- NOTE | 2019-01-06 18:31 | EKG ---
FACILITY: [facility] PATIENT NAME: YARA MURPHY : [id number] MR: [id number] V: [id number] EXAM DATE: ORDERING PHYSICIAN: NISHA FRANCISCO TECHNOLOGIST: OLGA Test Reason : SOB Blood Pressure : / mmHG Vent. Rate : 150 BPM Atrial Rate : 141 BPM P-R Int : 000 ms QRS Dur : 128 ms QT Int : 330 ms P-R-T Axes : 000 -59 111 degrees QTc Int : 521 ms Wide QRS tachycardia likely SVT with aberrant conduction Left ventricular hypertrophy with QRS widening and repolarization abnormality Abnormal ECG When compared with ECG of 22-OCT-2018 04:51, Wide QRS tachycardia has replaced Sinus rhythm with LBBB Vent. rate has increased BY 90 BPM Confirmed by LEONEL ANGELES ([id number]) on 01/07/2019 12:13:13 AM Referred By: NISHA Confirmed By:LEONEL ANGELES
[2019-01-06 18:36] LABS: PLATELET COUNT, AUTOMATED 176 K/uL (150-450)
--- NOTE | 2019-01-06 18:49 | ER Report ---
History and Physical Time Seen By MD: 18:30 Hx. of Stated Complaint: PT REPORTS CHEST PAIN THAT STARTED YESTERDAY. PT IN ASYMPTOMATIC SVT WHEN PLACED ON MONITOR HPI/ROS CHIEF COMPLAINT: Chest pain HISTORY OF PRESENT ILLNESS: This is a 73-year-old male, well-known to the emergency department presents today for chest pain. He does have a history of mild dementia. Patient states he began to have some chest pain yesterday, mid day, with no exertion. States continued throughout the night, noted his heart rate was elevated, called EMS today, brought him into the emergency department. Patient is alert and oriented, mild chest anterior chest discomfort with some shortness of breath. Bedside monitor showing a heart rate in the 150s, SVT. Denies nausea or vomiting. No headaches. REVIEW OF SYSTEMS: Constitutional: No fever, no chills. Eyes: No discharge. ENT: No sore throat. Cardiovascular: As above. Respiratory: As above. Gastrointestinal: No abdominal pain, no vomiting. Genitourinary: No hematuria. Musculoskeletal: No back pain. Skin: No rashes. Neurological: No headache. Allergies: Coded Allergies: atorvastatin calcium (Verified Allergy, Severe, HIVES, 01/06/19) Home Meds Active Scripts Metoprolol Tartrate (METOPROLOL TARTRATE) 50 Mg Tab, 12.5 MG PO BID, #180 TAB Prov:CELINA DOWNING MD 09/15/18 Hydrocortisone Acetate (ANUSOL-HC) 25 Mg Supp.rect, 25 MG RC BID PRN for HEMORRHOIDS, #15 SUPP.RECT Prov:CELINA DOWNING MD 09/15/18 Hydrocortisone (ANUSOL-HC) 30 Gm Cream..g., 1 APPLIC RC TID PRN for HEMORRHOIDS, #60 TUBE 2 Refills Prov:CELINA DOWNING MD 09/15/18 Potassium Chloride (KLOR-CON M20) 20 Meq Tab.er.prt, 20 MEQ PO QDAY, #30 TAB 0 Refills Prov:ISRAEL SCHRADER MD 12/20/16 Reported Medications Topiramate (TROKENDI XR) 50 Mg Cap.er.24h, 3 CAP PO HS 09/15/18 Polyethylene Glycol 3350 (MIRALAX) 17 Gm Powd.pack, 17 GM PO DAILY, PKT 09/15/18 Sodium Bicarbonate (SODIUM BICARBONATE) 650 Mg Tablet, 650 MG PO DAILY 09/15/18 Dutasteride (AVODART) 0.5 Mg Capsule, 0.5 MG PO QDAY, CAPSULE 09/14/18 Linaclotide (LINZESS) 145 Mcg Capsule, 145 MCG PO, CAPSULE 09/06/18 Lisinopril (LISINOPRIL) 10 Mg Tablet, 10 MG PO QDAY, TAB 12/13/15 Hydralazine Hcl (HYDRALAZINE HCL) 100 Mg Tablet, 100 MG PO TID, TAB 10/14/15 Aspirin (ASPIRIN EC) 81 Mg Tablet.dr, 81 MG PO QHS, TAB 10/14/15 Fluticasone Prop 50 Mcg Ns (FLONASE 50 MCG NS) 16 Gm [place].susp, 1 SPRAY NS BID 04/27/14 Memantine Hcl (Namenda) 10 Mg Tablet, 10 MG PO BID 12/08/12 Amlodipine Besylate (Norvasc) 10 Mg Tablet, 10 MG PO DAILY, 0 Refills 12/15/10 Past Medical/Surgical History The patient has a past medical and surgical history of dementia, question of TIAs, hypercholesterolemia, heart disease, "aortic valve problem", chest pain, significant history of SVT, congestive heart failure, hypertension, hayfever, oxygen at night, pneumonia, GERD, stage IV kidney disease, BPH, arthritis, multiple orthopedic injuries, back pain, cataract surgery. Reviewed Nurses Notes: Yes Hx Smoking: No Smoking Status: Never Smoker Exposure to Second Hand Smoke?: No Hx Substance Use Disorder: No Hx Alcohol Use: No Constitutional Vital Sign - Last 24 Hours 01/06/19 01/06/19 01/06/19 01/06/19 18:17 18:17 18:20 18:25 Temp 98.2 Pulse 156 151 147 Resp 18 9 12 B/P (MAP) 112/79 112/79 (90) Pulse Ox 99 93 93 O2 Delivery Room Air 01/06/19 01/06/19 01/06/19 01/06/19 18:30 18:35 18:36 18:40 Pulse 151 146 72 Resp 22 13 9 B/P (MAP) 145/82 (103) Pulse Ox 94 94 91 01/06/19 01/06/19 01/06/19 01/06/19 18:45 18:50 18:50 19:00 Pulse 71 78 78 Resp 7 12 12 B/P (MAP) 134/82 (99) Pulse Ox 91 91 91 01/06/19 01/06/19 01/06/19 01/06/19 19:00 19:05 19:05 19:20 Pulse 70 70 64 Resp 0 0 14 B/P (MAP) 134/82 (99) Pulse Ox 93 93 95 01/06/19 01/06/19 01/06/19 01/06/19 19:20 19:30 19:30 19:35 Pulse 64 69 Resp 14 14 B/P (MAP) 138/98 (111) 138/98 (111) Pulse Ox 95 01/06/19 01/06/19 19:35 19:40 Pulse 69 65 Resp 14 9 Physical Exam General Appearance: The patient is alert, has no immediate need for airway protection and no signs of toxicity. Eyes: Pupils equal and round no pallor or injection. ENT, Mouth: Mucous membranes are moist. Respiratory: There are no retractions, lungs are clear to auscultation. Cardiovascular: Regular rate and rhythm. No murmurs, clicks or rubs. Gastrointestinal: Abdomen is soft and non tender, no masses, bowel sounds normal. Neurological: Alert and oriented 4. Moving all extremities. Following all commands. No focal neuro deficits. Skin: Warm and dry, no rashes. Musculoskeletal: Neck is supple non tender. Extremities are nontender, nonswollen and have full range of motion. DIFFERENTIAL DIAGNOSIS: After history and physical exam differential diagnosis was considered for chest pain including but not limited to myocardial ischemia, pericarditis pulmonary embolus, chest wall pain, pleural inflammation and pulmonary infectious causes. Medical Decision Making Data Points Result Diagram: 01/06/19 1830 01/06/19 1830 Laboratory Hematology Test 01/06/19 18:30 Red Blood Count 5.05 M/uL (4.00-5.60) Mean Corpuscular Volume 84.1 fL (80.0-96.0) Mean Corpuscular Hemoglobin 27.6 pg (26.0-33.0) Mean Corpuscular Hemoglobin Concent 32.8 g/dL (32.0-36.0) Red Cell Distribution Width 15.0 % (11.5-14.5) Mean Platelet Volume 8.1 fL (7.2-11.1) Neutrophils (%) (Auto) 75.1 % (39.4-72.5) Lymphocytes (%) (Auto) 13.5 % (17.6-49.6) Monocytes (%) (Auto) 6.1 % (4.1-12.4) Eosinophils (%) (Auto) 3.2 % (0.4-6.7) Basophils (%) (Auto) 2.1 % (0.3-1.4) Nucleated RBC Relative Count (auto) 0.0 /100WBC Neutrophils # (Auto) 4.1 K/uL (2.0-7.4) Lymphocytes # (Auto) 0.7 K/uL (1.3-3.6) Monocytes # (Auto) 0.3 K/uL (0.3-1.0) Eosinophils # (Auto) 0.2 K/uL (0.0-0.5) Basophils # (Auto) 0.1 K/uL (0.0-0.1) Nucleated RBC Absolute Count (auto) 0.00 K/uL Sodium Level 142 mmol/L (137-145) Potassium Level 3.5 mmol/L (3.5-5.0) Chloride Level 111 mmol/L (98-107) Carbon Dioxide Level 20 mmol/L (22-30) Blood Urea Nitrogen 34 mg/dl (9-21) Creatinine 1.90 mg/dl (0.66-1.25) Glomerular Filtration Rate Calc 34.7 Random Glucose 91 mg/dl (75-110) Calcium Level 9.8 mg/dl (8.4-10.2) Total Bilirubin 0.7 mg/dl (0.2-1.3) Aspartate Amino Transf (AST/SGOT) 177 U/L (0-35) Alanine Aminotransferase (ALT/SGPT) 101 U/L (0-56) Alkaline Phosphatase 148 U/L (0-126) Troponin I 0.029 ng/ml Total Protein 8.8 g/dl (6.3-8.2) Albumin 4.5 g/dl (3.5-5.0) Chemistry Test 01/06/19 18:30 White Blood Count 5.4 k/uL (4.5-11.0) Red Blood Count 5.05 M/uL (4.00-5.60) Hemoglobin 13.9 g/dL (14.0-18.0) Hematocrit 42.4 % (42.0-52.0) Mean Corpuscular Volume 84.1 fL (80.0-96.0) Mean Corpuscular Hemoglobin 27.6 pg (26.0-33.0) Mean Corpuscular Hemoglobin Concent 32.8 g/dL (32.0-36.0) Red Cell Distribution Width 15.0 % (11.5-14.5) Platelet Count 176 K/uL (150-450) Mean Platelet Volume 8.1 fL (7.2-11.1) Neutrophils (%) (Auto) 75.1 % (39.4-72.5) Lymphocytes (%) (Auto) 13.5 % (17.6-49.6) Monocytes (%) (Auto) 6.1 % (4.1-12.4) Eosinophils (%) (Auto) 3.2 % (0.4-6.7) Basophils (%) (Auto) 2.1 % (0.3-1.4) Nucleated RBC Relative Count (auto) 0.0 /100WBC Neutrophils # (Auto) 4.1 K/uL (2.0-7.4) Lymphocytes # (Auto) 0.7 K/uL (1.3-3.6) Monocytes # (Auto) 0.3 K/uL (0.3-1.0) Eosinophils # (Auto) 0.2 K/uL (0.0-0.5) Basophils # (Auto) 0.1 K/uL (0.0-0.1) Nucleated RBC Absolute Count (auto) 0.00 K/uL Glomerular Filtration Rate Calc 34.7 Calcium Level 9.8 mg/dl (8.4-10.2) Total Bilirubin 0.7 mg/dl (0.2-1.3) Aspartate Amino Transf (AST/SGOT) 177 U/L (0-35) Alanine Aminotransferase (ALT/SGPT) 101 U/L (0-56) Alkaline Phosphatase 148 U/L (0-126) Troponin I 0.029 ng/ml Total Protein 8.8 g/dl (6.3-8.2) Albumin 4.5 g/dl (3.5-5.0) EKG/Imaging EKG Interpretation 12 lead EKG: Time of EKG 1821. Rhythm: Wide QRS tachycardia, rate of 150 bpm consistent with SVT. [place]: normal QRS: normal ST segments: normal Similar morphology when compared to the 09/13/2018 EKG. 12 lead EKG: Time of EKG 1839, post adenosine conversion. Rhythm: Sinus rhythm with a 1st degree AV block, ventricular rate 71 bpm. [place]: normal QRS: normal ST segments: No ST depression or elevation identified. No significant changes when compared to the 10/22/2018 EKG. Imaging PATIENT NAME: Randy Gayle : 1945 MR: [id number] V: [id number] EXAM DATE: ORDERING PHYSICIAN: NISHA FRANCISCO TECHNOLOGIST: Location: [facility] [place] Patient: Randy Gayle : 1945 Visit/Account:[id number] Date of Sevice: 01/06/2019 CHEST SINGLE AP Indication: Chest pain shortness of breath for 2 days.. Comparison: 09/13/2018. Findings: Cardiomediastinal silhouette and pulmonary vessels within normal limits for the technique and rotation. There is no focal infiltrate or lobar consolidation. No pneumothorax or pleural effusion. No nodule. Upper abdomen is unremarkable. No acute bony abnormality. IMPRESSION: 1. No acute cardiopulmonary process. Report Dictated By: Walter Brown at 01/06/2019 7:07 PM Report E-Signed By: Walter Brown at 01/06/2019 7:08 PM WSN:[id number] ED Course/Re-evaluation Clinical Indication for ER IV: Hydration, IV Access ED Course The patient was admitted to a room. A history and physical were obtained. Differential diagnoses were considered. An IV was started. A CBC, CMP and troponin were obtained. A 1 L normal saline bolus was given. EKG and bedside monitor showing SVT, patient was given a 6 mg rapid IV bolus of adenosine, with no change in the rhythm, patient was then given 12 mg IV rapid IV bolus of adenosine followed by rapid IV flush, patient did cardiovert into a sinus rhythm which was similar to his previous EKGs. Patient's laboratory studies similar to his historical lab studies, no acute findings. Patient states feeling much better after the chemical cardioversion. Negative two-view chest x-ray. I did review the results with the patient. Patient states he is ready to go home. No other concerning findings at this time, patient remained in a sinus rhythm while in the emergency department. Patient was transferred home. Procedure: Elective chemical cardioversion. The patient was electively chemically cardioverted for SVT. The patient was on a continuous hang gliding instructor, with airway equipment at the bedside. The patient was on continuous pulse oximetry. The cardioversion was attempted with 6 mg, 12 mg adenosine. The cardioversion was successful. The patient tolerated the procedure well with no complications. The procedure was performed by myself. Decision to Disposition Date: Jan 06, 2019 Decision to Disposition Time: 19:40 Depart Departure Latest Vital Signs Vital Signs Date Time Temp Pulse Resp B/P (MAP) Pulse Ox O2 Delivery O2 Flow Rate FiO2 01/06/19 19:40 65 9 01/06/19 19:30 138/98 (111) 01/06/19 19:20 95 01/06/19 18:17 98.2 Room Air Impression: Primary Impression: SVT (supraventricular tachycardia) Condition: Improved Disposition: HOME OR SELF-CARE Referrals: YOLANDA MCKEON MD (PCP) 5 Days Patient Instructions: Supraventricular Tachycardia (ED) Additional Instructions: Please contact your primary care provider in follow-up within the next 3-5 days for reevaluation. Be sure to drink plenty of fluids. Get plenty of rest. Continue taking your medications as prescribed. Return to the emergency department for any other concerns or worsening symptoms. NISHA FRANCISCO PAN PUSHER-BC Jan 06, 2019 18:49
--- NOTE | 2019-01-06 19:12 | RADIOLOGY IMAGING REPORT ---
FACILITY: [facility] PATIENT NAME: Randy Gayle : 1945 MR: [id number] V: [id number] EXAM DATE: ORDERING PHYSICIAN: NISHA FRANCISCO TECHNOLOGIST: Location: [facility] Patient: Randy Gayle : 1945 Visit/Account:[id number] Date of Sevice: 01/06/2019 CHEST SINGLE AP Indication: Chest pain shortness of breath for 2 days.. Comparison: 09/13/2018. Findings: Cardiomediastinal silhouette and pulmonary vessels within normal limits for the technique and rotatio n. There is no focal infiltrate or lobar consolidation. No pneumothorax or pleural effusion. No nodule. Upper abdomen is unremarkable. No acute bony abnormality. IMPRESSION: 1. No acute cardiopulmonary process. Report Dictated By: Walter Brown at 01/06/2019 7:07 PM Report E-Signed By: Walter Brown at 01/06/2019 7:08 PM WSN:[id number]
[2019-01-06 19:30] VITALS: BP 138/98
--- NOTE | 2019-01-06 19:49 | EKG ---
FACILITY: [facility] PATIENT NAME: YARA MURPHY : [id number] MR: [id number] V: [id number] EXAM DATE: ORDERING PHYSICIAN: NISHA FRANCISCO TECHNOLOGIST: OLGA Test Reason : REPEAT Blood Pressure : / mmHG Vent. Rate : 071 BPM Atrial Rate : 071 BPM P-R Int : 244 ms QRS Dur : 138 ms QT Int : 444 ms P-R-T Axes : 005 -59 097 degrees QTc Int : 482 ms Sinus rhythm with 1st degree AV block Left bundle branch block R wave progression consistent with an old ant/sep VT vs lead placement When compared with ECG of 06-JAN-2019 18:22, Sinus rhythm has replaced Wide QRS tachycardia Vent. rate has decreased BY 79 BPM Confirmed by LEONEL ANGELES ([id number]) on 01/07/2019 12:14:16 AM Referred By: NISHA Confirmed By:LEONEL ANGELES
== END 2019-01-06 19:52 | disposition home or self-care (01) ==
LOC: ER 18:17
DX: I47.1 Supraventricular tachycardia (principal)
CPT/HCPCS: 71045; 84484; 85025; 93005; 96361; 96374; 99284; J0153; J7030; 82040; 82247; 82310; 82374; 82435; 82565; 82947; 84075; 84132; 84155; 84295; 84450; 84460; 84520

== ENCOUNTER → 2019-01-06 | Outpatient (CLI) | payer MEDICARE, MEDICAID ==
[2018-09-13 13:47] VITALS: BMI 18.7
== END ==
LOC: AMB 19:52
PROVIDERS: ATTEND Nurse Practitioner
DX: R07.9 Chest pain, unspecified (principal); R53.1 Weakness
CPT/HCPCS: A0425; A0428

== ENCOUNTER → 2019-01-06 | Outpatient (CLI) | payer MEDICARE, MEDICAID ==
[2018-09-13 13:47] VITALS: BMI 18.7
== END ==
LOC: AMB 17:51
DX: R07.1 Chest pain on breathing (principal); R42 Dizziness and giddiness; R06.02 Shortness of breath
CPT/HCPCS: A0425; A0426

== ENCOUNTER 2019-01-07 05:17 | Emergency (ER) | payer MEDICARE, MEDICAID ==
[2018-09-13 13:47] VITALS: Wt 72.7 kg
--- NOTE | 2019-01-07 05:26 | ER Report ---
History and Physical Time Seen By MD: 05:22 HPI/ROS CHIEF COMPLAINT: weak and dizzy HISTORY OF PRESENT ILLNESS: PT states he was here yesterday for a rapid heart rate. Pt has hx of svt. Pt was cardioverted with adenosine and was sent home. PT states he felt better when he went home but that tonight when in the kitchen felt weak, dizzy "not right". PT called ambulance. Pt is poor historian secondary to mild dementia. Pt denies chest pain or sob now. Pt just repeating that he does not feel well. no focal weakness. Pt on arrival found to be bradycardic. REVIEW OF SYSTEMS: Constitutional: No fever, no chills. Eyes: No discharge. ENT: No sore throat. Cardiovascular: No chest pain, + palpitations yesterday Respiratory: No cough, no shortness of breath. Gastrointestinal: No abdominal pain, no vomiting. Genitourinary: No hematuria. Musculoskeletal: No back pain. Skin: No rashes. Neurological: No headache, + weak and dizzy Allergies: Coded Allergies: atorvastatin calcium (Verified Allergy, Severe, HIVES, 01/07/19) Home Meds Active Scripts Metoprolol Tartrate (METOPROLOL TARTRATE) 50 Mg Tab, 12.5 MG PO BID, #180 TAB Prov:CELINA DOWNING MD 09/15/18 Hydrocortisone Acetate (ANUSOL-HC) 25 Mg Supp.rect, 25 MG RC BID PRN for HEMORRHOIDS, #15 SUPP.RECT Prov:CELINA DOWNING MD 09/15/18 Hydrocortisone (ANUSOL-HC) 30 Gm Cream..g., 1 APPLIC RC TID PRN for HEMORRHOIDS, #60 TUBE 2 Refills Prov:CELINA DOWNING MD 09/15/18 Potassium Chloride (KLOR-CON M20) 20 Meq Tab.er.prt, 20 MEQ PO QDAY, #30 TAB 0 Refills Prov:ISRAEL SCHRADER MD 12/20/16 Reported Medications Topiramate (TROKENDI XR) 50 Mg Cap.er.24h, 3 CAP PO HS 09/15/18 Polyethylene Glycol 3350 (MIRALAX) 17 Gm Powd.pack, 17 GM PO DAILY, PKT 09/15/18 Sodium Bicarbonate (SODIUM BICARBONATE) 650 Mg Tablet, 650 MG PO DAILY 09/15/18 Dutasteride (AVODART) 0.5 Mg Capsule, 0.5 MG PO QDAY, CAPSULE 09/14/18 Linaclotide (LINZESS) 145 Mcg Capsule, 145 MCG PO, CAPSULE 09/06/18 Lisinopril (LISINOPRIL) 10 Mg Tablet, 10 MG PO QDAY, TAB 12/13/15 Hydralazine Hcl (HYDRALAZINE HCL) 100 Mg Tablet, 100 MG PO TID, TAB 10/14/15 Aspirin (ASPIRIN EC) 81 Mg Tablet.dr, 81 MG PO QHS, TAB 10/14/15 Fluticasone Prop 50 Mcg Ns (FLONASE 50 MCG NS) 16 Gm [place].susp, 1 SPRAY NS BID 04/27/14 Memantine Hcl (Namenda) 10 Mg Tablet, 10 MG PO BID 12/08/12 Amlodipine Besylate (Norvasc) 10 Mg Tablet, 10 MG PO DAILY, 0 Refills 12/15/10 Past Medical/Surgical History Pmhx and Pshx: dementia, cognitive impairment from football, hyp ercholesterolemia, heart disease, "aortic valve problem", chest pain, significant history of SVT, congestive heart failure, hypertension, hayfever, oxygen at night, pneumonia, GERD, stage IV kidney disease, BPH, arthritis, multiple orthopedic injuries, back pain, cataract surgery. Reviewed Nurses Notes: Yes Old Medical Records Reviewed: Yes Hx Smoking: No Smoking Status: Never Smoker Exposure to Second Hand Smoke?: No Hx Substance Use Disorder: No Hx Alcohol Use: No Constitutional Vital Sign - Last 24 Hours 01/07/19 01/07/19 01/07/19 01/07/19 05:21 05:21 05:32 05:45 Temp 98.4 Pulse 47 52 Resp 18 14 B/P (MAP) 165/67 165/67 (99) 151/80 (103) 147/84 (105) Pulse Ox 92 96 O2 Delivery Room Air 01/07/19 01/07/19 05:50 06:00 Pulse 60 Resp 12 B/P (MAP) 158/72 (100) Pulse Ox 87 Physical Exam General Appearance: The patient is alert, has no immediate need for airway protection and no signs of toxicity. Eyes: Pupils equal and round no pallor or injection, EOMI ENT: no pharyngeal erythema or exudates, Mucous membranes are moist Respiratory: There are no retractions, lungs are clear to auscultation. Cardiovascular: Regular rate and rhythm. pulses are equal and symmetrical Gastrointestinal: Abdomen is soft and non tender, no masses, bowel sounds normal, no guarding, no rigidity or rebound Neurological: Cranial nerves II-XII grossly intact, no sensory or motor loss, no pronator drift or dysmetria Skin: Warm and dry, no rashes. Musculoskeletal: Neck is supple non tender, no vertebral tenderness Extremities are nontender, non swollen and have full range of motion. DIFFERENTIAL DIAGNOSIS: After history and physical exam differential diagnosis was considered for electrolyte abnl, acs, anemia, sick sinus syndrome Medical Decision Making Data Points Result Diagram: 01/07/1927 01/07/1927 Laboratory Hematology Test 01/07/19 05:27 01/07/19 05:50 Red Blood Count 4.08 M/uL (4.00-5.60) Mean Corpuscular Volume 83.2 fL (80.0-96.0) Mean Corpuscular Hemoglobin 27.8 pg (26.0-33.0) Mean Corpuscular Hemoglobin Concent 33.4 g/dL (32.0-36.0) Red Cell Distribution Width 14.8 % (11.5-14.5) Mean Platelet Volume 8.4 fL (7.2-11.1) Neutrophils (%) (Auto) 66.9 % (39.4-72.5) Lymphocytes (%) (Auto) 17.8 % (17.6-49.6) Monocytes (%) (Auto) 12.2 % (4.1-12.4) Eosinophils (%) (Auto) 3.0 % (0.4-6.7) Basophils (%) (Auto) 0.1 % (0.3-1.4) Nucleated RBC Relative Count (auto) 0.0 /100WBC Neutrophils # (Auto) 2.7 K/uL (2.0-7.4) Lymphocytes # (Auto) 0.7 K/uL (1.3-3.6) Monocytes # (Auto) 0.5 K/uL (0.3-1.0) Eosinophils # (Auto) 0.1 K/uL (0.0-0.5) Basophils # (Auto) 0.0 K/uL (0.0-0.1) Nucleated RBC Absolute Count (auto) 0.00 K/uL Sodium Level 140 mmol/L (137-145) Potassium Level 3.5 mmol/L (3.5-5.0) Chloride Level 113 mmol/L (98-107) Carbon Dioxide Level 21 mmol/L (22-30) Blood Urea Nitrogen 35 mg/dl (9-21) Creatinine 2.10 mg/dl (0.66-1.25) Glomerular Filtration Rate Calc 30.9 Random Glucose 86 mg/dl (75-110) Calcium Level 9.2 mg/dl (8.4-10.2) Magnesium Level 2.2 mg/dl (1.7-2.2) Total Bilirubin 0.5 mg/dl (0.2-1.3) Aspartate Amino Transf (AST/SGOT) 67 U/L (0-35) Alanine Aminotransferase (ALT/SGPT) 87 U/L (0-56) Alkaline Phosphatase 84 U/L (0-126) Troponin I 0.137 ng/ml Total Protein 7.2 g/dl (6.3-8.2) Albumin 3.4 g/dl (3.5-5.0) Stool Occult Blood (IFOB) Positive (NEGATIVE) Chemistry Test 01/07/19 05:27 01/07/19 05:50 White Blood Count 4.1 k/uL (4.5-11.0) Red Blood Count 4.08 M/uL (4.00-5.60) Hemoglobin 11.3 g/dL (14.0-18.0) Hematocrit 33.9 % (42.0-52.0) Mean Corpuscular Volume 83.2 fL (80.0-96.0) Mean Corpuscular Hemoglobin 27.8 pg (26.0-33.0) Mean Corpuscular Hemoglobin Concent 33.4 g/dL (32.0-36.0) Red Cell Distribution Width 14.8 % (11.5-14.5) Platelet Count 140 K/uL (150-450) Mean Platelet Volume 8.4 fL (7.2-11.1) Neutrophils (%) (Auto) 66.9 % (39.4-72.5) Lymphocytes (%) (Auto) 17.8 % (17.6-49.6) Monocytes (%) (Auto) 12.2 % (4.1-12.4) Eosinophils (%) (Auto) 3.0 % (0.4-6.7) Basophils (%) (Auto) 0.1 % (0.3-1.4) Nucleated RBC Relative Count (auto) 0.0 /100WBC Neutrophils # (Auto) 2.7 K/uL (2.0-7.4) Lymphocytes # (Auto) 0.7 K/uL (1.3-3.6) Monocytes # (Auto) 0.5 K/uL (0.3-1.0) Eosinophils # (Auto) 0.1 K/uL (0.0-0.5) Basophils # (Auto) 0.0 K/uL (0.0-0.1) Nucleated RBC Absolute Count (auto) 0.00 K/uL Glomerular Filtration Rate Calc 30.9 Calcium Level 9.2 mg/dl (8.4-10.2) Magnesium Level 2.2 mg/dl (1.7-2.2) Total Bilirubin 0.5 mg/dl (0.2-1.3) Aspartate Amino Transf (AST/SGOT) 67 U/L (0-35) Alanine Aminotransferase (ALT/SGPT) 87 U/L (0-56) Alkaline Phosphatase 84 U/L (0-126) Troponin I 0.137 ng/ml Total Protein 7.2 g/dl (6.3-8.2) Albumin 3.4 g/dl (3.5-5.0) Stool Occult Blood (IFOB) Positive (NEGATIVE) EKG/Imaging EKG Interpretation Sinus quirino@ 48 with left ventricular hypertrophy, similar to olds ED Course/Re-evaluation Clinical Indication for ER IV: IV Access ED Course check labs and ekg. Will hold off on cxr at this time since had cxr less then 24 hour ago. 01/07/2019 5:46:23 am Pts hb dropped from yesterday. PT did receive fluids however will check for gi bleed. Pt did not notice any blood in stool or loose stools. Will check occult. 01/07/2019 5:55:30 am RECTAL: hard brown stool in rectal vault, no obvious blood. Hemoccult sent to lab PT still c/o of feeling dizzy which seemed worse when we laid him flat for the rectal. Pt unable to tell me if it is vertigo like. will give a dose of meclizine while awaiting labs. 01/07/2019 6:07:02 am Pts troponin is positive0.137 and was within normal range last evening. Pt was transferred to [facility] to see cardiology this past October for similar instance. will give a call to [facility] cardiology. 01/07/2019 6:25:[address] Velasco, kitchen food assembler at [facility] who feels pt should be transfered to [facility] for further evaluation. Did ask for us to send old EKGs in pt in SVT. Made copies of several EKGs from multiple visits for patient. Dr. Velasco states he will be a telecommunications consultant but will require hospitalist to admit. 01/07/2019 6:40:[address] Mendiola, Hospitalist at [facility], who will accept patient. There is no bed at this time so patient will go to the emergency department at [facility] and await beds Decision to Disposition Date: Jan 07, 2019 Decision to Disposition Time: 06:48 Depart Departure Latest Vital Signs Vital Signs Date Time Temp Pulse Resp B/P (MAP) Pulse Ox O2 Delivery O2 Flow Rate FiO2 01/07/19 06:00 158/72 (100) 01/07/19 05:50 60 12 87 01/07/19 05:21 98.4 Room Air Impression: Primary Impression: Non-ST elevation SD (NSTEMI) Additional Impression: Weakness Condition: Condition Unchanged Disposition: XFER TO [facility] Referrals: MILVIA BRITO DO (PCP) Problem Qualifiers BELA SANCHEZ DO Jan 07, 2019 05:26
--- NOTE | 2019-01-07 05:39 | EKG ---
FACILITY: [facility] [place] PATIENT NAME: YARA MURPHY : [id number] MR: [id number] V: [id number] EXAM DATE: ORDERING PHYSICIAN: BELA SANCHEZ TECHNOLOGIST: SHIRA Test Reason : CARDIAC Blood Pressure : / mmHG Vent. Rate : 048 BPM Atrial Rate : 048 BPM P-R Int : 208 ms QRS Dur : 140 ms QT Int : 506 ms P-R-T Axes : 003 -50 118 degrees QTc Int : 452 ms Marked sinus bradycardia with 1st degree AV block Left ventricular hypertrophy with QRS widening and repolarization abnormality vs LBBB Abnormal ECG When compared with ECG of 06-JAN-2019 18:39, ND interval has decreased Vent. rate has decreased BY 23 BPM T wave amplitude has decreased in Lateral leads Confirmed by LEONEL ANGELES ([id number]) on 01/07/2019 6:54:08 AM Referred By: Confirmed By:LEONEL ANGELES
[2019-01-07 05:40] LABS: PLATELET COUNT, AUTOMATED 140 K/uL (150-450)
[2019-01-07] MEDS ORDERED: POTASSIUM CHL 20 MEQ TABCR PO ONE (05:55)
[2019-01-07] MEDS ORDERED: MECLIZINE HCL 12.5 MG TAB PO ONE (06:00)
[2019-01-07] MEDS ORDERED: ASPIRIN 81 MG CHEW PO ONE (06:05)
--- NOTE | 2019-01-07 06:39 | RADIOLOGY IMAGING REPORT ---
FACILITY: PATIENT NAME: Randy Gayle : 1945 MR: [id number] V: [id number] EXAM DATE: ORDERING PHYSICIAN: BELA SANCHEZ TECHNOLOGIST: [place] [facility] [place] Patient: Randy Gayle : 1945 Visit/Account:[id number] Date of Sevice: 01/07/2019 CT BRAIN NO CONTRAST HISTORY: Generalized weakness. Dizziness. COMPARISON: 11/10/2016 and studies dating to 11/24/2008. TECHNIQUE: Axial images were obtained from the skull base to the vertex without contrast. Sagittal an d coronal reformats were performed. One of the following dose optimization techniques was utilized in the performance of this exam: Autom ated exposure control; adjustment of the mA and/or kV according to the patient's size; or use of an i terative reconstruction technique. Specific details can be referenced in the facility's radiology CT exam operational policy. CONTRAST: None. FINDINGS: Brain: No intracranial hemorrhage, mass, or edema. There are nonspecific periventricular, subcortical , and deep white matter low attenuation foci, severe, similar to prior study. 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 There is mild calcification of the vertebral arteries and of the internal carotid arteries. There is a punctate calcification in the rig ht sylvian fissure (image 28), new. Sulci, ventricles, and cisterns: Sulci are prominent, compatible with mild atrophy, normal for age. T here is compensatory dilation of the ventricles. The basilar cisterns are patent. Osseous structures: Intact. Paranasal sinuses and mastoids: Normal. Leftward nasal septal deviation. Orbits and soft tissues: Changes of bilateral cataract surgery. IMPRESSION: 1. No acute intracranial abnormality. 2. Nonspecific white matter changes are most likely due to chronic microvascular ischemic change, sev ere, unchanged. Report Dictated By: Isabella Nunez at 01/07/2019 6:26 AM Report E-Signed By: Isabella Nunez at 01/07/2019 6:35 AM WSN:[id number]
[2019-01-07 07:15] VITALS: BP 149/74
== END 2019-01-07 07:40 | disposition short-term general hospital (02) ==
LOC: ER 05:25
DX: I21.4 Non-ST elevation (NSTEMI) myocardial infarction (principal); R53.1 Weakness
CPT/HCPCS: 70450; 82274; 83735; 84443; 84484; 85025; 93005; 99285; A9270; J8597; 82040; 82247; 82310; 82374; 82435; 82565; 82947; 84075; 84132; 84155; 84295; 84450; 84460; 84520

== ENCOUNTER → 2019-01-07 | Outpatient (CLI) | payer MEDICARE, MEDICAID ==
[2018-09-13 13:47] VITALS: BMI 18.7
== END ==
LOC: AMB 04:59
DX: R07.1 Chest pain on breathing (principal)
CPT/HCPCS: A0425; A0427

== ENCOUNTER → 2019-01-07 | Outpatient (CLI) | payer MEDICARE, MEDICAID ==
[2018-09-13 13:47] VITALS: BMI 18.7
== END ==
LOC: AMB 07:21
DX: I21.4 Non-ST elevation (NSTEMI) myocardial infarction (principal); R78.89 Finding of other specified substances, not normally found in blood
CPT/HCPCS: A0425; A0426